=== PATIENT | female | born 1960 | race Caucasian/White ===

== ENCOUNTER 2023-03-04 08:04 | Outpatient (OUT) | payer BC, SELFPAY ==
--- NOTE | 2023-03-04 | XR_ITS ---
The [address] [address] Patient Name: ALICIA RITTER MRN: [id number] date: 1960 Sex: F Assigned Patient Location: [facility] Current Patient Location: [facility] Accession/Order Number: [id number] Exam Date: 03/04/2023 08:25 Report Date: 03/04/2023 09:19 At the request of: KIRSTIN SIM Procedure: XR hand NICA min 3v EXAMINATION: XR hand NICA min 3v HISTORY: hand pain COMPARISON: No relevant comparison available. FINDINGS: RIGHT FINDINGS: BONES: No acute fracture or dislocation. Minimal degenerative changes with marginal osteophyte formation. No significant joint space narrowing. No subchondral erosions or lytic changes SOFT TISSUES: Negative. No visible soft tissue swelling. OTHER: Negative. LEFT FINDINGS: BONES: No acute fracture or dislocation. Minimal degenerative changes with marginal osteophyte formation. No significant joint space narrowing. No subchondral erosions or lytic changes SOFT TISSUES: Negative. No visible soft tissue swelling. OTHER: Negative. XR/XR hand NICA min 3v IMPRESSION: RIGHT CONCLUSION: Minimal proliferative arthritis LEFT CONCLUSION: Minimal proliferative arthritis Electronically authenticated by: REBECCA JEFFRIES Date: 03/04/2023 09:19
[2023-03-04 09:23] LABS: Erythrocyte Sedimentation Rate 14 mm/hr (<=30)
[2023-03-04 10:17] LABS: C Reactive Protein <0.2 mg/dL (<=1.0)
[2023-03-05 07:07] LABS: Vitamin D, 25-Hydroxy 29.8 ng/mL (30.0-100.0)
[2023-03-05 08:08] LABS: Rheumatoid Factor (RF) 10.6 IU/mL (<14.0)
[2023-03-06 12:08] LABS: Anti-CCP Ab, IgG/IgA 42 units (0-19); PTH, Intact 29 pg/mL (15-65)
[2023-03-06 15:07] LABS: Antinuclear Antibodies, IFA Negative (.)
== END 2023-03-04 08:05 | disposition home or self-care (01) ==
PROVIDERS: PCP Internal Medicine; Visit Provider Internal Medicine Rheumatology
DX: M79.642 Pain in left hand (principal); M79.641 Pain in right hand; M25.50 Pain in unspecified joint; M89.9 Disorder of bone, unspecified; M19.042 Primary osteoarthritis, left hand; M19.041 Primary osteoarthritis, right hand
CPT/HCPCS: 36415; 73130; 82306; 83970; 85652; 86038; 86140; 86200; 86430; 86431

== ENCOUNTER 2023-08-17 02:14 | Emergency (ER) | payer BC, SELFPAY ==
[2023-08-17] VITALS (17 sets, daily range): BP systolic 124–187; BP diastolic 70–110; PULSE 90–119; RESP 18; TEMP 36.8; O2SAT 93–98; BMI 34.3
--- NOTE | 2023-08-17 02:41 | ED.GENADUL1 ---
HPI - General Adult General Chief complaint: Headache Stated complaint: BLOOD PRESSURE ISSUE Time Seen by Provider: 08/17/23 02:37 Source: patient Limitations: no limitations History of Present Illness HPI narrative: presents anxious. States started on new BP medication by her PCP. feels that her BP has been creeping up despite taking it. Elisa felt anxious and called 911 because of her elevated BP. States it was over 200 at her home. has come down to 172 here. No chest pain Related Data Home Medications Medication Instructions Recorded Confirmed amlodipine 5 mg tablet mg 08/17/23 losartan 50 mg-hydrochlorothiazide tab 08/17/23 12.5 mg tablet Allergies Allergy/AdvReac Type Severity Reaction Status Date / Time Penicillins Allergy Verified 08/17/23 02:28 Review of Systems ROS Status of ROS 10 or more systems reviewed and unremarkable except as noted in history and below PFSH PFS Social History Smoking status: Never smoker Exam Constitutional Vital Signs, click to edit/add: Last Vital Signs Temp 98.3 F 08/17/23 02:25 Pulse 119 H 08/17/23 02:25 Resp 18 08/17/23 02:25 BP 132/70 08/17/23 03:42 Pulse Ox 98 08/17/23 02:25 O2 Del Method Room Air 08/17/23 02:25 Common normals: no apparent distress, oriented x3, no limitations, healthy appearing, alert and well nourished [facility] Common normals: normocephalic and head/scalp atraumatic Eye Common normals: EOMs intact bilaterally and conjunctivae normal Respiratory Common normals: normal respiratory effort, no retractions, no use of accessory muscles and clear to auscultation bilaterally Cardio Common normals: no JVD, regular rate, regular rhythm, S1 normal heart sound and S2 normal heart sound GI Common normals: Normal to inspection, nondistended, normoactive bowel sounds present, soft to palpation and non-tender Extremity Common normals: normal to inspection and full ROM Neuro Common normals: oriented x3, CN's II-XII intact bilaterally, moves all extremities, no focal motor deficits and no sensory deficits noted Psych Appearance: grossly normal Course Vital Signs Vital signs: Vital Signs Temperature 98.3 F 08/17/23 02:25 Pulse Rate 119 H 08/17/23 02:25 Respiratory Rate 18 08/17/23 02:25 Blood Pressure 187/94 H 08/17/23 02:25 Pulse Oximetry 98 08/17/23 02:25 Oxygen Delivery Method Room Air 08/17/23 02:25 Temperature 98.3 F 08/17/23 02:25 Pulse Rate 119 H 08/17/23 02:25 Respiratory Rate 18 08/17/23 02:25 Blood Pressure 132/70 08/17/23 03:42 Pulse Oximetry 98 08/17/23 02:25 Oxygen Delivery Method Room Air 08/17/23 02:25 Medical Decision Making MDM Narrative Medical decision making narrative: patient presents anxious about her elevated BP. it was higher at home when she called [facility]. States it was over 200 systolic. On arrival here it was 172 systolic. Given Dose of labetalol and her BP and anxiety improved and hse is now resting comfortably and requesting to go home Discharge Plan Discharge Chief Complaint: Headache Clinical Impression: Anxiety, Hypertension Patient Disposition: Home, Self-Care Prescriptions / Home Meds: No Action amlodipine 5 mg tablet losartan-hydrochlorothiazide 50-12.5 mg tablet Instructions: Hypertension (ED), Anxiety (ED) Additional Instructions: follow up with your family doctor for recheck in next 2- days Stand Alone Forms: Portal Instructions Referrals: Parviz Hanley DO [Primary Care Provider] - 1 week
[2023-08-17] MEDS: LABETALOL HCL 20 MG/4 ML SYRINGE IVP (03:02)
--- NOTE | 2023-08-17 03:31 | PC.NURSE ---
Patient with h/o RA and recent dx of HTN is supposed to be having a knee replacement in a few weeks and saw her PCP for medical clearance. At this appt she was dx with htn and started on medication. The medication caused her BP to go up, and she started with sx of feeling poorly including headache, fatigue, palpitations and just general unwell. She called EMS earlier this morning and they sat with her and her BP started to come down some, so she thought maybe her sx were anxiety and decided to bring herself to the ED when she did not feel any better.
== END 2023-08-17 04:45 | disposition home or self-care (01) ==
PROVIDERS: Emergency Provider Internal Medicine; PCP Internal Medicine
DX: I10 Essential (primary) hypertension (principal); F41.9 Anxiety disorder, unspecified; Z79.899 Other long term (current) drug therapy
CPT/HCPCS: 96374; 99284; J1290

== ENCOUNTER 2023-10-19 11:16 | Outpatient (OUT) | payer BC, SELFPAY ==
[2023-10-19 11:45] LABS: Bilirubin Urine NEGATIVE (NEGATIVE); Blood Urine NEGATIVE (NEGATIVE); Clarity Urine CLEAR (CLEAR); Color Urine LT. YELLOW (YELLOW); Glucose Urine UA NEGATIVE (NEGATIVE); Ketones Urine NEGATIVE (NEGATIVE); Leukocyte Esterase Urine TRACE (NEGATIVE); Nitrite Urine NEGATIVE (NEGATIVE); Protein Urine NEGATIVE (NEG/TRACE); Urobilinogen Urine 0.2 EU/dL (0.2-1.0)
== END 2023-10-19 11:17 | disposition home or self-care (01) ==
LOC: LAB 11:18
PROVIDERS: PCP Internal Medicine; Visit Provider Internal Medicine
DX: R30.0 Dysuria (principal)
CPT/HCPCS: 81003; 87086

== ENCOUNTER 2024-01-24 07:43 | Outpatient (OUT) | payer BC, SELFPAY ==
--- OUTSIDE RECORDS SUMMARY | 2024-01-24 07:48 | XMS_ITS | CCD ---
Author Organization [facility] Care Team Providers Care Staple Laster Name Role Phone DR BRITTNEY FARRIS Primary Care Unavailable TALON, DR ZAMUDIO Attending Unavailable BALL, DR ZAMUDIO Consulting Unavailable BALL, DR ZAMUDIO Admitting Unavailable FARRIS, DR BRITTNEY Torres Admitting Unavailable FARRIS, DR BRITTNEY Torres Attending Unavailable FARRIS, DR BRITTNEY Torres Consulting Unavailable FARRIS, DR BRITTNEY Torres Primary Care Unavailable FARRIS, DR BRITTNEY Torres Admitting Unavailable FARRIS, DR BRITTNEY Torres Attending Unavailable WEST, DR REBECCA Hernandez Consulting Unavailable FARRIS, DR BRITTNEY Torres Primary Care Unavailable FARRIS, DR BRITTNEY Torres Consulting Unavailable Parviz Hanley Unavailable Kirstin Dee II Unavailable NON STAFF Primary Care Provider UnavailDO Clay Yeh Attending Provider [phone] MD Kirstin Dee II Attending Provider NON STAFF Primary Care Provider Unavaildewayne torres NON STAFF Primary Care Provider UnavailMD Kirstin Miranda II Attending Provider DO Parviz Hanley Primary Care Provider MD Kirstin Dee II Attending Provider MD Kirstin Dee II Attending Provider [phone] DO Parviz Hanley Primary Care Provider DO Parviz Hanley Primary Care Provider MD Kirstin Dee II Attending Provider AMARILIS YI Attending Unavailable KIRSTIN DEE Referring Unavailable JOJO ALEXANDRA Attending Unavailable KIRSTIN DEE Referring Unavailable CINDY ROLON Attending Unavailable KIRSTIN DEE Referring Unavailable CINDY ROLON Attending Unavailable KIRSTIN DEE Referring Unavailable CINDY ROLON Attending Unavailable KIRSTIN DEE Referring Unavailable CINDY ROLON Attending Unavailable LEILA, KIRSTIN Referring Unavailable GONZALES, CINDY Attending Unavailable LEILA, KIRSTIN Referring Unavailable GONZALES, CINDY Attending Unavailable LEILA, KIRSTIN Referring Unavailable GONZALES, CINDY Attending Unavailable LEILA, KIRSTIN Referring Unavailable GONZALES, CINDY Attending Unavailable LEILA, KIRSTIN Referring Unavailable GONZALES, CINDY Attending Unavailable LEILA, KIRSTIN Referring Unavailable GONZALES, CINDY Attending Unavailable LEILA, KIRSTIN Referring Unavailable GONZALES, CINDY Attending Unavailable LEILA, KIRSTIN Referring Unavailable GONZALES, CINDY Attending Unavailable LEILA, KIRSTIN Referring Unavailable GONZALES, CINDY Attending Unavailable LEILA, KIRSTIN Referring Unavailable Ball, DO Parviz Primary Care Provider MD Kirstin Dee II Attending Provider Leila HUERTA, Kirstin Noel Attending Unavailabl e Garza II, Kirstin Noel Admitting Unavailabl e Ball, Parviz Primary Care Unavailable Garza DEANNA, Kirstin Noel Attending Unavailabl e Garza II, Kirstin Noel Admitting Unavailabl e Ball, Parviz Primary Care Unavailable Leila DEANNA, Kirstin Noel Attending Unavailabl e Garza II, Kirstin Noel Admitting Unavailabl e Ball, Parviz Primary Care Unavailable Garza II, Kirstin Noel Attending Unavailabl e Garza II, Kirstin Noel Admitting Unavailabl e Ball, Parviz Primary Care Unavailable Garza II, Kirstin Noel Attending Unavailabl e Garza II, Kirstin Noel Admitting Unavailabl e Ball, Parviz Primary Care Unavailable Garza II, Kirstin Noel Attending Unavailabl e Garza II, Kirstin M Admitting Unavailabl e Ball, Parviz Primary Care Unavailable Garza II, Kirstin M Admitting Unavailabl e Garza II, Kirstin Noel Attending Unavailabl e NON STAFF Primary Care Unavailable Garza II, Kirstin M Admitting Unavailabl e Leila II, Kirstin M Attending Unavailabl e NON STAFF Primary Care Unavailable NON STAFF Primary Care Unavailable Clay Traore Admitting Unavailable Clay Traore Attending Unavailable Leila DEANNA, Kirstin Noel Attending Unavailabl e Garza II, Kirstin Noel Admitting Unavailabl e Ball, Praviz Primary Care Unavailable Leila DEANNA, Kirstin Noel Attending Unavailabl e Garza II, Kirstin M Admitting Unavailabl e Ball, Parviz Primary Care Unavailable Ball, DO Parviz Primary Care Provider [phone] MD Kirstin Dee II Attending Provider Allergies Allergy Classification Reported Allergen(s) Allergy Type Date of Onset Reaction(s) Facility amLODIPine (2 sources) amLODIPine Drug Allergy 11-22-19 24 Palpitations [facility] Penicillins (antibiotic) (2 sources) Penicillins Drug Allergy 11-22-19 24 Unknown Reaction [facility] (2 sources) Penicillin G Drug Allergy Unknown [facility] Other (8 sources) Substance with penicillin structure and antibacterial mechanism of action (substance) Drug allergy Unknown [facility] Other (12 sources) amLODIPine; Translations: [amlodipine] Drug Allergy 09-27-19 24 Palpitations [facility] (12 sources) Penicillins; Translations: [Penicillins] Allergy to substance 09-27-19 Unknown Reaction [facility] Medications Current Medications Medication Drug Class(es) Dates Sig (Normalized) Sig (Original) acetaminophen 500 mg oral tablet (20 sources) Start: 08-24-2023 End: 09-27-2023 take 1000 mg by mouth every eight hours Acetaminophen Active 1000 MG PO Q8H 180 September 27, 2023 8:52am DO NOT RECONCILE UNTIL DOS 10/09/2023. MED TO BED UPON DISCHARGE. Acetaminophen 50 0 MG 1 tablet as needed Orally PRN Active celecoxib 100 mg oral capsule (8 sources) Nonsteroidal Anti-inflammatory Drug Start: 11-22-2023 take 100 mg by mouth twice daily at mealtime Celecoxib Active 100 MG PO bid 60 November 22, 2023 12:00am Take with food. Start: 05-11-2023 take 1 capsule by [facility] twice daily for arthritis Celecoxib 100 MG 1 capsule for arthritis Orally twice a day for 30 days Apr, Active Cholecalciferol (5 sources) Vitamin D Start: 07-31-2023 take 1 capsule by mouth once daily Cholecalciferol 125 MCG (5000 UT) 1 capsule Orally Once a day for 30 day(s) Jul, Active clindamycin 300 mg oral capsule (10 sources) Lincosamide Antibacterial take 1 capsule by mouth every eight hours Diclofenac (6 sources) Nonsteroidal Anti-inflammatory Drug Voltaren 1 % as directed Externally Active estradiol 0.5 mg oral tablet (10 sources) Estrogen take 1 tablet by anali th every twenty-four hours fluticasone propionate 0.05 mg/actuat metered dose nasal spray (10 sources) Corticosteroid take 1 spray(s) nasa l route once daily take 1 spray(s) nasal route once daily Fluticasone Propionate 50 MCG/ACT 1 spray in each nostril Nasally Once a day Not-Taking hydroCHLOROthiazide 25 mg / losartan potassium 100 mg oral tablet (20 sources) Thiazide Diuretic, Angiotensin 2 Receptor Elliot Start: 08-30-2023 End: 09-06-2023 take 1 tablet by mouth once daily Losartan-Hydrochlorothiazide Active 1 TAB PO Daily August 30, 2023 1:00am Start: 08-17-2023 End: 08-29-2023 take 2 tablets by mouth once daily Losartan-Hydrochlorothiazide Discontinue d 2 TAB PO Daily August 28, 2023 6:11pm August 29, 2023 5:46pm Start: 08-04-2023 take 1 tablet by anali th every twenty-four hours Losartan Potassium-HCTZ 50-12.5 MG 1 tab let Orally Once a day for 30 days Jul, Active hydroxychloroquine sulfate 2 00 mg oral tablet (6 sources) Antimalarial, Antirheumatic Agent ibuprofen 400 mg oral tablet (9 sources) Nonsteroidal Anti-inflammatory Drug take 1 tablet by mouth three times daily at mealtime as needed Magnesium (9 sources) Magnesium Active Ozempic (0.25 or 0.5 MG/DOSE ) 2 MG/1.5ML (6 sources) Start: 09-05-2022 Start: 09-05-2022 Ozempic (0.25 or 0.5 MG/DOSE) 2 MG/1.5ML 0.25mg Subcutaneous weekly for 28 days Aug, Not-Taking tiZANidine 4 mg oral tablet (8 sources) Central alpha-2 Adrenergic Agonist Start: 10-25-2023 take 1 tablet by mouth twice daily Tizanidine (Zanaflex) 4 mg tablet Active 4 MG PO Twice daily October 25, 2023 12:00am 24 hr tolterodine tartrate 4 mg extended release oral capsule (12 sources) Cholinergic Muscarinic Antagonist Start: 01-31-2023 take 1 capsule by mouth every twenty-four hours Detrol LA 4 MG 1 capsule Orally Once a day for 30 days Jan, Active vitamin B12 (9 sources) Vitamin B12 Vitamin B12 Acti ve Zinc (9 sources) Zinc Active Completed/Discontinued Medications Medication Drug Class(es) Dates Sig (Normalized) Sig (Original) amLODIPine 5 mg oral tablet (19 sources) Dihydropyridine Calcium Channel Elliot Start: 08-17-2023 End: 08-17-2023 take 5 mg by mouth twice daily Amlodipine Discontinued 5 MG PO Twice daily 60 August 17, 2023 1:00am August 17, 2023 4:53pm Start: 08-02-2023 take 1 tablet by anali th every twenty-four hours amLODIPine Besylate 5 MG 1 tablet Orally Once a day for 30 days Jul, Active carvedilol 12.5 mg oral tablet (20 sources) alpha-Adrenergic Elliot, beta-Adrenergic Elliot Start: 08-28-2023 End: 11-22-2023 take 1 tablet by mouth twice daily at mealtime Carvedilol Discontinued 0 .ROUTE .COMPLEX 60 August 28, 2023 2:09pm November 22, 2023 12:02pm TAKE 1 TABLET BY MOUTH TWICE A DAY *MUST TAKE WITH A MEAL/FOOD* Start: 08-17-2023 End: 08-28-2023 take 12.5 mg by mouth twice daily at mealtime Carvedilol Discontinued 12.5 MG PO Twice daily 60 August 17, 2023 1:00am August 28, 2023 2:09pm must administer with a meal/food cefadroxil 500 mg oral capsule (20 sources) Cephalosporin Antibacterial Start: 09-27-2023 End: 09-27-2023 take 500 mg by mouth every twelve hours Cefadroxil Discontinued 500 MG PO Q12H 14 September 27, 2023 12:00am September 27, 2023 10:15am DO NOT RECONCILE UNTIL DOS 10/09/2023. MED TO BED UPON DISCHARGE. Start: 08-24-2023 End: 08-24-2023 take 500 mg by mouth every twelve hours Cefadroxil Discontinued 500 MG PO Q12H 14 August 24, 2023 1:00am August 24, 2023 2:39pm DO NOT RECONCILE UNTIL DOS 09/04/2023. MED TO BED UPON DISCHARGE. docusate sodium 50 mg / sennosides, group home 8.6 mg oral tablet (20 sources) Start: 08-24-2023 End: 11-22-2023 take 2 tablets by mouth once daily Sennosides-Docusate Sodium (Senokot-S) 8.6-50 mg tablet Discontinued 2 TAB PO daily 60 September 27, 2023 8:55am November 22, 2023 12:02pm DO NOT RECONCILE UNTIL DOS 10/09/2023. MED TO BED UPON DISCHARGE. hydroCHLOROthiazide 12.5 mg / telmisartan 40 mg oral tablet (13 sources) Thiazide Diuretic, Angiotensin 2 Receptor Elliot Start: 08-29-2023 End: 08-30-2023 take 1 tablet by mouth twice daily Telmisartan-Hydrochlor othiazid Discontinued 1 TAB PO Twice daily 60 August 29, 2023 5:44pm August 30, 2023 10:59pm hydrocortisone 10 mg/ml / neomycin 3.5 mg/ml / polymyxin b 33311 unt/ml otic suspension (11 sources) Aminoglycoside Antibacterial, Polymyxin-class Antibacterial, Corticosteroid Start: 09-29-2023 End: 10-09-2023 Yukuqyee-Ezqnaolsc-Nb Discontinued 4 DROPS OTIC Four times daily 10 September 29, 2023 12:00am October 09, 2023 9:20am meloxicam 15 mg oral tablet (4 sources) Nonsteroidal Anti-inflammatory Drug Meloxicam 15 MG TAKE 1 TABLET BY MOUTH EVERY DAY FOR 30 DAYS for 30 Not-Taking methylPREDNISolone 4 mg oral tablet (15 sources) Corticosteroid Start: 11-22-2023 End: 12-13-2023 Methylprednisolone (Medrol (Art)) 4 mg tablets,dose pack Discontinued 4 MG PO as directed November 22, 2023 12:00am December 13, 2023 1:57pm Start: 10-25-2023 End: 11-22-2023 take 1 tablet by mouth once Methylprednisolone (Medrol (Art)) 4 mg tablets,dose pack Discontinued 0 PO per package directions October 25, 2023 12:00am November 22, 2023 12:02pm PO PER PKG DIR ondansetron 4 mg oral tablet (20 sources) Serotonin-3 Receptor Antagonist Start: 08-24-2023 End: 11-22-2023 take 4 mg by mouth every eight hours Ondansetron Hcl Discontinued 4 MG PO Q8H September 27, 2023 8:52am November 22, 2023 12:02pm DO NOT RECONCILE UNTIL DOS 10/09/2023. MED TO BED UPON DISCHARGE. oxyCODONE hydrochloride 5 mg oral tablet (20 sources) Opioid Agonist Start: 08-24-2023 End: 11-22-2023 take 5 mg by mouth every four hours Oxycodone Discontinued 5 MG PO Q4H 42 September 27, 2023 November 22, 2023 12:02pm DO NOT RECONCILE UNTIL DOS 10/09/2023. MED TO BED UPON DISCHARGE. pantoprazole 20 mg delayed release oral tablet (20 sources) Proton Pump Inhibitor Start: 08-24-2023 End: 11-22-2023 take 1 tablet by mouth once daily Pantoprazole (Protonix) 20 mg tablet,delayed release (DR/EC) Discontinued 20 MG PO daily 35 35 September 27, 2023 8:53am November 22, 2023 12:02pm DO NOT RECONCILE UNTIL DOS 10/09/2023. MED TO BED UPON DISCHARGE. polyethylene glycol 3350 18679 mg powder for oral solution (20 sources) Osmotic Laxative Start: 08-24-2023 End: 11-22-2023 Polyethylene Glycol 3350 (Miralax) 17 gram/dose powder Discontinued 17 GM PO daily 7 September 27, 2023 8:53am November 22, 2023 12:02pm 1 packed mixed with 8 ounces of fluid. DO NOT RECONCILE UNTIL DOS 10/09/2023. MED TO BED UPON DISCHARGE. predniSONE 10 mg oral tablet (20 sources) Start: 09-27-2023 End: 11-22-2023 take 10 mg by mouth once daily Prednisone Discontinued 10 MG PO daily 10 September 27, 2023 12:00am November 22, 2023 12:02pm DO NOT RECONCILE UNTIL DOS 10/09/2023. MED TO BED UPON DISCHARGE. Start: 08-24-2023 End: 09-06-2023 take 10 mg by mouth once daily Prednisone Discontinued 10 MG PO daily 04 04August 24, 2023 1:00am September 06, 2023 12:41pm DO NOT RECONCILE UNTIL DOS 09/04/2023. MED TO BED UPON DISCHARGE. rivaroxaban 10 mg oral tablet (20 sources) Factor Xa Inhibitor Start: 08-24-2023 End: 11-22-2023 take 10 mg by mouth once daily Rivaroxaban Discontinued 10 MG PO daily 35 35 September 27, 2023 8:54am November 22, 2023 12:02pm DO NOT RECONCILE UNTIL DOS 10/09/2023. MED TO BED UPON DISCHARGE. 0.25 mg, 0.5 mg dose 1.5 ml semaglutide 1.34 mg/ml pen injector (4 sources) Start: 09-05-2022 Ozempic (0.25 or 0.5 MG/DOSE) 2 MG/1.5ML 0.25mg Subcutaneous weekly for 28 days Aug, Not-Taking sulfamethoxazole 800 mg / trimethoprim 160 mg oral tablet (20 sources) Dihydrofolate Reductase Inhibitor Antibacterial, Sulfonamide Antimicrobial Start: 10-20-2023 End: 11-22-2023 take 1 tablet by mouth twice daily Sulfamethoxazole- Trimethoprim Discontinued 1 TAB PO Twice daily 10 5 October 20, 2023 12:00am November 22, 2023 12:02pm Start: 08-24-2023 End: 09-06-2023 take 1 tablet by mouth twice daily Sulfamethoxazole-Trimethoprim Discontinu ed 1 TAB PO Twice daily 14 7 August 24, 2023 1:00am September 06, 2023 12:41pm DO NOT RECONCILE UNTIL 09/04/2023. MED TO BED traMADol hydrochloride 50 mg oral tablet (20 sources) Opioid Agonist Start: 10-25-2023 End: 11-22-2023 take 50 mg by mouth every eight hours Tramadol Discontinued 50 MG PO Every 8 hours 30 7 October 25, 2023 12:00am November 22, 2023 12:03pm Start: 08-24-2023 End: 11-22-2023 take 50 mg by mouth every six hours Tramadol Discontinued 50 MG PO Q6H 40 September 27, 2023 8:54am November 22, 2023 12:03pm DO NOT RECONCILE UNTIL DOS 10/09/2023. MED TO BED UPON DISCHARGE. triamcinolone acetonide 40 mg/ml injectable suspension (15 sources) Corticosteroid Start: 12-29-2022 Kenalog-40 Apr, 120 mg valACYclovir 1000 mg oral tablet (11 sources) Herpesvirus Nucleoside Analog DNA Polymerase Inhibitor, Herpes Simplex Virus Nucleoside Analog DNA Polymerase Inhibitor, Herpes Zoster Virus Nucleoside Analog DNA Polymerase Inhibitor Start: 09-29-2023 End: 10-09-2023 take 2000 mg by mouth twice daily Valacyclovir Discontinued 2000 MG PO Twice daily 4 September 29, 2023 12:00am October 09, 2023 9:20am Problems Active Problems Problem Classification Problem Date Documented Date Episodic/Chronic Allergic reactions (10 sources) Allergic contact dermatitis due to plants, except food; Translations: [Allergic contact dermatitis due to plants, except food] Episodic Anxiety disorders (20 sources) Generalized anxiety disorder; Translations: [Generalized anxiety disorder] 08-17-2023 Chronic Essential hypertension (20 sources) Essential hypertension; Translations: [Essential (primary) hypertension] Chronic Genitourinary symptoms and ill-defined conditions (18 sources) Urgent desire to urinate; Translations: [Urgency of urination] Onset: 12-26-2016 Resolved: 11-12-2021 Episodic Malaise and fatigue (10 sources) Other fatigue; Translations: [Fatigue] Onset: 11-05-2021 Resolved: 11-12-2021 01-23-2024 Episodic Osteoarthritis (20 sources) Osteoarthritis of joint of left hand; Translations: [Primary osteoarthritis, left hand] Onset: 10-10-2016 Resolved: 11-12-2021 Chronic Osteoporosis (1 source) Age-related osteoporosis without current pathological fracture; Translations: [Age-related osteoporosis without current pathological fracture] Onset: 07-27-2023 Chronic Other aftercare (7 sources) Patient encounter status; Translations: [Aftercare following joint replacement surgery] 11-21-2023 Chronic Other aftercare (15 sources) Aftercare following joint replacement surgery; Translations: [Aftercare following joint replacement] Onset: 01-04-2024 11-22-2023 Chronic Other circulatory disease (18 sources) Elevated blood-pressure reading without diagnosis of hypertension; Translations: [Elevated blood-pressure reading, without diagnosis of hypertension] Episodic Other connective tissue disease (8 sources) History of prosthetic unicompartmental arthroplasty of right knee; Translations: [Presence of right artificial knee joint] 10-25-2023 Chronic Other connective tissue disease (19 sources) Presence of right artificial knee joint; Translations: [Knee joint replacement] Onset: 01-04-2024 10-25-2023 Chronic Other connective tissue disease (6 sources) History of total knee arthroplasty; Translations: [Presence of right artificial knee joint] 11-21-2023 Chronic Other connective tissue disease (1 source) Cramp and spasm Episodic Other connective tissue disease (13 sources) Trochanteric bursitis; Translations: [Trochanteric bursitis, unspecified hip] 10-25-2023 Episodic Other connective tissue disease (7 sources) Trochanteric bursitis, unspecified hip; Translations: [Enthesopathy of hip region] 10-25-2023 Episodic Other connective tissue disease (3 sources) Trochanteric bursitis, left hip; Translations: [Enthesopathy of hip region] 01-04-2024 Episodic Other connective tissue disease (3 sources) Trochanteric bursitis, right hip; Translations: [Enthesopathy of hip region] 01-04-2024 Episodic Other diseases of bladder and urethra (8 sources) Overactive bladder; Translations: [Overactive bladder] Chronic Other diseases of bladder and urethra (1 source) Overactive bladder Chronic Other ear and sense organ disorders (9 sources) Otitis externa; Translations: [Unspecified otitis externa, unspecified ear] 09-29-2023 Chronic Other ear and sense organ disorders (7 sources) Unspecified otitis externa, unspecified ear; Translations: [Infective otitis externa, unspecified] 09-29-2023 Chronic Other inflammatory condition of skin (8 sources) Rosacea; Translations: [Rosacea, unspecified] Chronic Other nutritional; endocrine; and metabolic disorders (17 sources) Body mass index 30+ - obesity; Translations: [Obesity, unspecified] 08-17-2023 Chronic Other nutritional; endocrine; and metabolic disorders (18 sources) Obese class II; Translations: [Body mass index (BMI) 37.0-37.9, adult] Chronic Other nutritional; endocrine; and metabolic disorders (8 sources) Morbid obesity; Translations: [Morbid (severe) obesity due to excess calories] Onset: 08-10-2016 Chronic Other nutritional; endocrine; and metabolic disorders (20 sources) Obesity; Translations: [Obesity, unspecified] Resolved: 11-12-2021 09-06-2023 Chronic Other nutritional; endocrine; and metabolic disorders (5 sources) Obesity caused by energy imbalance; Translations: [Other obesity due to excess calories] Chronic Other nutritional; endocrine; and metabolic disorders (1 source) Other obesity due to excess calories Chronic Other nutritional; endocrine; and metabolic disorders (1 source) Body mass index (BMI) 34.0-34.9, adult Chronic Other nutritional; endocrine; and metabolic disorders (10 sources) Obesity, unspecified; Translations: [Obesity, unspecified] 09-06-2023 Chronic Other upper respiratory infections (20 sources) Acute maxillary sinusitis; Translations: [Acute maxillary sinusitis, unspecified] Episodic Residual codes; unclassified (10 sources) Asymptomatic menopausal state; Translations: [Menopause] Episodic Residual codes; unclassified (8 sources) Postmenopausal state; Translations: [Asymptomatic menopausal state] Episodic Rheumatoid arthritis and related disease (10 sources) Inflammatory polyarthropathy; Translations: [Inflammatory polyarthropathy] Chronic Spondylosis; intervertebral disc disorders; other back problems (9 sources) Lumbar spondylosis; Translations: [Spondylosis without myelopathy or radiculopathy, lumbar region] Chronic Spondylosis; intervertebral disc disorders; other back problems (8 sources) Sciatica; Translations: [Sciatica, unspecified side] 10-25-2023 Episodic Unclassified (1 source) Unilateral primary osteoarthritis, right knee; Translations: [Unilateral primary osteoarthritis, right knee] Onset: 08-24-2023 Unclassified (1 source) Encounter for preprocedural laboratory examination; Translations: [Encounter for preprocedural laboratory examination] Onset: 08-24-2023 Unclassified (1 source) Low back pain, unspecified; Translations: [Low back pain, unspecified] Onset: 05-11-2023 Viral infection (20 sources) Herpes labialis; Translations: [Herpesviral vesicular dermatitis] Onset: 05-13-2015 Resolved: 11-12-2021 09-29-2023 Episodic Past or Other Problems Problem Classification Problem Date Documented Date Episodic/Chronic Deficiency and other anemia (8 sources) Anemia; Translations: [Anemia, unspecified] Onset: 05-13-2015 Resolved: 11-12-2021 Episodic Nutritional deficiencies (8 sources) Vitamin D deficiency; Translations: [Vitamin D deficiency, unspecified] Onset: 05-13-2015 Resolved: 11-12-2021 Chronic Other aftercare (1 source) Other bed bug exterminator (current) drug therapy; Translations: [Other correction (current) drug therapy] Onset: 07-27-2023 Episodic Other ear and sense organ disorders (8 sources) Infective otitis externa; Translations: [Other infective otitis externa, bilateral] Onset: 09-08-2016 Episodic Other non-traumatic joint disorders (4 sources) Pain in right knee; Translations: [Pain in right knee] Onset: 08-24-2023 Episodic Other non-traumatic joint disorders (8 sources) Arthralgia of the lower leg; Translations: [Pain in right knee] Resolved: 11-12-2021 Episodic Other screening for suspected conditions (not mental disorders or infectious disease) (4 sources) Encounter for screening mammogram for malignant neoplasm of breast; Translations: [ENC SCR MAMMO MALIG NEOPLASM BREAST] Onset: 11-30-2021 Episodic Other upper respiratory disease (8 sources) Ulcerative rhinitis; Translations: [Nasal mucositis (ulcerative)] Onset: 05-13-2015 Resolved: 11-12-2021 Chronic Otitis media and related conditions (8 sources) Non-suppurative otitis media; Translations: [Unspecified nonsuppurative otitis media, right ear] Resolved: 11-12-2021 Episodic Unclassified (2 sources) Lumbar back pain M54.50 Results Test Name Value Interpretation Reference Range Facility XR tibia fibula RT 2V*on XR tibia fibula RT 2V* [facility] [address] [place] [address] XRay Report Signed Patient: Maddison Ritter MR#: [id number] 98 : 1960 Acct:[id number] Age/Sex: 63 / F ADM Date: 01/04/24 Loc: [facility] [place]: Type: [facility] Attending Dr: Kirstin Dee II, MD Copies to: Kirstin Dee MD Ordering Provider: Kirstin Dee MD Date of Service: 01/04/24 XR/XR tibia fibula RT 2V*: Z47.1 - Aftercare following joint replacement surgery ([id number]) XR/XR femur RT 2V*: Z47.1 - Aftercare following joint replacement surgery ([id number]) XR/XR knee RT 2V: Z47.1 - Aftercare following joint replacement surgery CLINICAL DATA: Follow-up after right knee hemiarthroplasty. COMPARISON: 08/24/2023 and 11/22/2023 knee RIGHT FEMUR AND TIB-FIB - one view AP standing view of both lower extremities from above the acetabula down to the ankles was obtained using a long cassette. There is a right medial knee prosthesis. The hardware appears intact and in appropriate position. There is no new femur fracture. There is no dislocation at the hips or knees. No soft tissue abnormalities are identified. The tibia and fibula are intact. No dislocation is visualized at the ankles. The soft tissues are within normal limits. XR/XR femur RT 2V* IMPRESSION: STABLE APPEARANCE OF MEDIAL RIGHT KNEE REPLACEMENT. RIGHT KNEE - 2 views AP and lateral weightbearing views were obtained. A medial right knee prosthesis is again visualized. The hardware appears intact and unchanged from the comparison. There is no developing fracture or dislocation. There is minor marginal spurring at the lateral tibiofemoral and patellofemoral joint spaces. There is still a small amount of fluid within the suprapatellar bursa. IMPRESSION: STABLE RIGHT KNEE REPLACEMENT AND MILD DEGENERATIVE CHANGES. Impression dictated by: Lainey Scott M.D.01/04/2024 4:42 PM Dictation Location: [place] [address] Transcribed By: [facility] 01/04/24 1642 Dictated By: Lainey Scott MD 01/04/24 1639 Signed By: 01/04/24 1642 Normal [facility] XR knee RT 3V - NOT FOR ER U [facility] 11-22-2023 XR knee RT 3V - NOT FOR ER USE [facility] [address] [place] [address] XRay Report Signed Patient: Maddison Ritter MR#: [id number] 98 : 1960 Acct:[id number] Age/Sex: 63 / F ADM Date: 11/22/23 Loc: [facility] [place] Room: Type: [facility] Attending Dr: Kirstin Dee II, MD Copies to: Kirstin Dee MD Ordering Provider: Kirstin Dee MD Date of Service: 11/22/23 XR/XR knee RT 3V - NOT FOR ER USE: [id number] - Presence of right artificial knee joint RIGHT KNEE - 3 views CLINICAL HISTORY: Follow-up partial knee arthroplasty. COMPARISON: Right knee 10/09/2023 FINDINGS: Medial compartment prosthesis without radiographic complication. No acute bony process. Mild degenerative changes with joint spurring. Small joint effusion. XR/XR knee RT 3V - NOT FOR ER USE IMPRESSION: NO EVIDENCE OF HARDWARE COMPLICATION. Impression dictated by: Brendon Hauser Jr., D.O.11/22/2023 4:05 PM Dictation Location: [place] [address] Transcribed By: [facility] 11/22/23 1605 Dictated By: Brendon Hausre Jr, DO 11/22/23 1604 Signed By: 11/22/23 1605 Normal [facility] Automated urine specific gra vity by refractometryon 10-19-2023 Specific gravity Refractometry automated (U) [Rel density] 1.010 1.005-1.02 5 [facility] Bilirubin Auto test strip (U ) [Mass/Vol]on 10-19-2023 Bilirubin (U) [Mass/Vol] Negative NEGATIVE [facility] Color Auto (U)on 10-19-2023 Color (U) LT. YELLOW YELLOW [facility] Ketones Auto test strip (U) [Mass/Vol]on 10-19-2023 Ketones (U) [Mass/Vol] Negative NEGATIVE [facility] Protein Auto test strip (U) [Mass/Vol]on 10-19-2023 Protein (U) [Mass/Vol] Negative NEG/TRACE [facility] Specific gravity Auto test s trip (U) [Rel density]on 10-19-2023 Specific gravity (U) [Rel density] CLEAR CLEAR [facility] Urine glucose measurement by test strip (mass/volume)on 10-19-2023 Glucose Test strip (U) [Mass/Vol] Negative NEGATIVE [facility] Urine hemoglobin detection b y automated test stripon 10-19-2023 Hemoglobin Auto test strip Ql (U) Negative NEGATIVE [facility] Urine nitrite detection by a utomated test stripon 10-19-2023 Nitrite Auto test strip Ql (U) TRACE Abnormal NEGATIVE [facility] Nitrite Auto test strip Ql (U) Negative NEGATIVE [facility] Urobilinogen Auto test strip (U) [Mass/Vol]on 10-19-2023 Urobilinogen Qn (U) 0.2 {Sarah'U}/dL 0.2-1.0 [facility] pH Auto test strip (U)on pH (U) 7.0 [pH] 5.0-9.0 [facility] Kaleb 10-09-2023 L Specimen: Received: 10/09/23 Status: AARON Anderson Num: [id number] Spec Type: Surgical Subm Dr: Kirstin Dee MD Tissues: A Joint/Knee (RT KNEE) Procedures: HE, Gross/Micro L4, Decalcification Age/ Patient Sex Location Account Attending Physician Maddison Ritter 63/F [place] [id number] Kirstin Dee MD SPEC NUM: [id number] RECD: 10/09/23 STATUS: AARON JARQUINRianna NUM: [id number] ERROL: 10/09/[address]: Kirstin Dee MD ENTERED: 10/09/[address] [facility] [address]: SPEC TYPE: Surgical DEPT: S ORDERED: HE, Gross/Micro L4, Decalcification ORDERED: HE, Gross/Micro L4, Decalcification Pathological Diagnosis Bone and tissue, right knee, arthroplasty: Degenerative changes consistent with osteoarthritis. Gross examination only. Gross Description In formalin labeled right knee are multiple pieces of erickson-white and brown bone tissue and kern-white rubbery cartilaginous tissue ranging in size from 1.0 x 0.7 x 0.3 cm to 5.2 x 2.4 x 1.2 cm. The resection margins are smooth. The articular surface is erickson-white, brown, and smooth with eburnated cartilage ranging in size from 0.1 cm to 0.2 cm thick. Serial blocks demonstrate spongy kern-yellow and brown cortical bone. Gross photographs are taken. Submitted for gross identification only. RG Clinical history: DJD Right knee CPT Codes 73348 KNEE Specimen: Received: 10/09/23 Status: AARON Anderson Num: [id number] Spec Type: Surgical Subm Dr: Kirstin Dee MD Tissues: A Joint/Knee (RT KNEE) Procedures: HE, Gross/Micro L4, Decalcification Patient: Maddison Ritter [id number] (Continued) Specimen: Received: 10/09/23 (Continued) Signed (signature on file) Josephine Russell MD 10/11/231247 Specimen: Received: 10/09/23 Status: AARON Anderson Num: [id number] Spec Type: Surgical Subm Dr: Kirstin Dee MD Tissues: A Joint/Knee (RT KNEE) Procedures: Slava GONZALES/Micro L4, Decalcification Patient: Maddison Ritter [id number] (Continued) Specimen: [id number] Received: 10/09/23 (Continued) KNEE Specimen: [id number] Received: 10/09/23 Status: AARON Anderson Num: [id number] Spec Type: Surgical Subm Dr: Kirstin Dee MD Tissues: A Joint/Knee (RT KNEE) Procedures: Slava GONZALES/Micro L4, Decalcification Patient: Maddison Ritter [id number] (Continued) Signed (signature on file) Josephine Russell MD 10/11/23 1248 Normal [facility] XR knee RT 2Von 10-09-2023 XR knee RT 2V [facility] [place] [address] XRay Report Signed Patient: Maddison Ritter MR#: [id number] 98 : 1960 Acct:[id number] Age/Sex: 63 / F ADM Date: 10/09/23 Loc: [place] Room: Type: [facility] Attending Dr: Kirstin Dee II, MD Copies to: Kirstin Dee MD Ordering Provider: Kirstin Dee MD Date of Service: 10/09/23 XR/XR knee RT 2V: POST OP XR knee RT 2V 10/09/2023 12:40 PM SIGNS AND SYMPTOMS: Postop right knee arthroplasty PROTOCOL: Frontal and lateral radiographs of the right knee COMPARISON: 12/29/2022 FINDINGS: There is arthroplasty hardware in the medial weightbearing joint space of the right knee. There is no hardware complication or malalignment. Postoperative subcutaneous emphysema is noted. Degenerative changes are noted in the patellofemoral joint space. XR/XR knee RT 2V IMPRESSION: No fracture or dislocation. There is arthroplasty hardware in the medial weightbearing joint space is new. No hardware complication or malalignment. Impression dictated by: Juancarlos Elmore M.D.10/09/2023 4:19 PM Dictation Location: [place] [address] Transcribed By: [facility] 10/09/23 1619 Dictated By: Juancarlos Elmore II, MD 10/09/23 161 Signed By: 10/09/23 1619 Normal [facility] Automated basophil %Ordered By: Kirstin Dee on 09-27-2023 Basophils/100 WBC (Bld) 0.7 % Normal . [facility] Comment on above: Performed By: #### V [id number], CUMRSA, ALB, HGB, A1C WTH eA #### [address] #### N[place]OT[place] #### [facility] , Automated basophil countOrde red By: Kirstin Dee on 09-27-2023 Basophils (Bld) [#/Vol] 0.1 10*3/uL Normal 0.0-0.2 [facility] Comment on above: Result Comment: PERF ORMED BY: [place] [address] PATHOLOGIST RESERVE OFFICER ULYSSES BAIN M.D. Performed By: #### V [id number], CUMRSA, ALB, HGB, A1C WTH eA #### [facility] [address] [place] [address] [place] #### [place] #### [facility] , Automated blood monocyte cou ntOrdered By: Kirstin Dee on 09-27-2023 Monocytes (Bld) [#/Vol] 0.7 10*3/uL Normal 0.0-0.8 [facility] Comment on above: Performed By: #### V [id number], CUMRSA, ALB, HGB, A1C WTH eA #### [place] [address] [place] #### NICOTINE #### [facility] , Automated eosinophil %Ordere d By: Kirstin Dee on 09-27-2023 Eosinophils/100 WBC (Bld) 1.7 % Normal . [facility] Comment on above: Performed By: #### V [id number], CUMRSA, ALB, HGB, A1C WTH eA #### [facility] [address] [place] [address] [place] #### [place]OT[place] #### [facility] , Automated eosinophil countOr dered By: Kirstin Dee on 09-27-2023 Eosinophils (Bld) [#/Vol] 0.1 10*3/uL Normal 0.0-0.45 [facility] Comment on above: Performed By: #### V [id number], CUMRSA, ALB, HGB, A1C WTH eA #### [facility] [address] [place] [address] [place] #### [place] #### [facility] , Automated monocyte %Ordered By: Kirstin Dee on 09-27-2023 Monocytes/100 WBC (Bld) 8.1 % Normal . [facility] Comment on above: Performed By: #### V [id number], CUMRSA, ALB, HGB, A1C WTH eA #### [facility] [address] [place] [address] [place] #### [place]OT[place] #### [facility] , Automated neutrophil %Ordere d By: Kirstin Dee on 09-27-2023 Neutrophils/100 WBC (Bld) 63.5 % Normal . [facility] Comment on above: Performed By: #### V [id number], CUMRSA, ALB, HGB, A1C WTH eA #### [facility] [address] [place] [address] [place] #### [place] #### [facility] , Automated urine color determ inationOrdered By: Kirstin Dee on 09-27-2023 Color (U) Yellow Normal Yellow [facility] Comment on above: Order Comment: Reaso n for Exam Primary osteoarthritis of right knee;Age-related osteoporosi Performed By: #### V [id number], CUMRSA, ALB, HGB, A1C WTH eA #### [place] [address] [place] #### N[place]OT[place] #### [facility] , Basic Metabolic Panelon GFR/1.73 sq M.predicted MDRD (S/P/Bld) [Vol rate/Area] mL/min/{1.73_m2} Normal [facility] Comment on above: Performed By: #### V [id number], CUMRSA, ALB, HGB, A1C WTH eA #### [place] [address] [place] #### N[place]OTINE #### [facility] , Bilirubin Test strip Ql (U)O rdered By: Kirstin Dee on 09-27-2023 Bilirubin Ql (U) Negative Negative [facility] Calcium [Mass/volume] in Ser um or PlasmaOrdered By: Kirstin Dee on 09-27-2023 Calcium [Mass/Vol] 9.1 mg/dL Normal 8.6-10.3 [facility] Comment on above: Result Comment: PERF ORMED BY: [place] [address] PATHOLOGIST RESERVE OFFICER ULYSSES BAIN M.D. Performed By: #### V [id number], CUMRSA, ALB, HGB, A1C WTH eA #### [place] [address] [place] #### [place]OT[place] #### [facility] , Carbon dioxide, total [Moles /volume] in Serum or PlasmaOrdered By: Kirstin Dee on 09-27-2023 CO2 [Moles/Vol] 27.2 mmol/L Normal 21.0-31.0 [facility] Comment on above: Performed By: #### V [id number], CUMRSA, ALB, HGB, A1C WTH eA #### [place] [address] [place] #### N[place]OT[place] #### [facility] , Chloride [Moles/volume] in S torsten or PlasmaOrdered By: Kirstin Dee on 09-27-2023 Chloride [Moles/Vol] 101 mmol/L Normal 98-107 [facility] Comment on above: Performed By: #### V [id number], CUMRSA, ALB, HGB, A1C WTH eA #### [facility] [address] [place] [address] [place] #### [place] #### [facility] , Complete Blood Count Auto Di ffon 09-27-2023 Mean Corpuscular HGB Conc 33.8 g/dL Normal 32.0-35.0 [facility] Comment on above: Performed By: #### V [id number], CUMRSA, ALB, HGB, A1C WTH eA #### [place] [address] [place] #### N[place]OT[place] #### [facility] , NRBC% 0.1 /100{WBC} Normal 0-0.5 [facility] Comment on above: Performed By: #### V [id number], CUMRSA, ALB, HGB, A1C WTH eA #### [facility] [address] [place] [address] [place] #### [place] #### [facility] , Creatinine [Mass/volume] in Serum or PlasmaOrdered By: Kirstin Dee on 09-27-2023 Creatinine [Mass/Vol] 0.58 mg/dL Low 0.60-1.20 [facility] Comment on above: Performed By: #### V [id number], CUMRSA, ALB, HGB, A1C WTH eA #### [facility] [address] [place] [address] [place] #### [place] #### [facility] , Erythrocyte distribution wid th [Ratio] by Automated countOrdered By: Kirstin Dee on 09-27-2023 Erythrocyte distribution width (RBC) [Ratio] 14.3 % Normal 11.9-15.3 [facility] Comment on above: Performed By: #### V [id number], CUMRSA, ALB, HGB, A1C WTH eA #### [facility] [address] [place] [address] [place] #### [place] #### [facility] , Erythrocytes [#/volume] in B lood by Automated countOrdered By: Kirstin Dee on 09-27-2023 RBC (Bld) [#/Vol] 5.05 10*6/uL High 3.60-5.00 [facility] Comment on above: Performed By: #### V [id number], CUMRSA, ALB, HGB, A1C WTH eA #### [place] [address] [place] #### [place]OT[place] #### [facility] , Fructosamineon 09-27-2023 Fructosamine 235 umol/L Normal 0-285 [facility] Comment on above: Result Comment: Publ ished reference interval for apparently healthy subjects between age 20 and 60 is 205 - 285 umol/L and in a poorly controlled diabetic population is 228 - 563 umol/L with a mean of 396 umol/L. Performed at: [facility] [place] [id number] Refining Still Operator: Samuel Jauregui PhD, Phone: [phone] PERFORMED BY: [place] [address] PATHOLOGIST RESERVE OFFICER ULYSSES BAIN M.D. Performed By: #### V [id number], CUMRSA, ALB, HGB, A1C WTH eA #### [place] [address] [place] #### [place]OT[place] #### [facility] , Fructosamine [Moles/volume] in Serum or PlasmaOrdered By: Kirstin Dee on 09-27-2023 Fructosamine [Moles/Vol] 235 umol/L 0-285 [facility] Comment on above: Published reference interval for apparently healthysubjects between age 20 and 60 is 205 - 285 umol/L and in apoorly controlled diabetic population is 228 - 563 umol/Lwith a mean of 396 umol/L.Performed at: [facility] [address] [id number] Director: Samuel Jauregui PhD, Phone: [phone] Glucose [Mass/volume] in Ser um or PlasmaOrdered By: Kirstin Dee on 09-27-2023 Glucose [Mass/Vol] 120 mg/dL High 70-100 [facility] Comment on above: ADA recommended refe rence rangeRandom Glucose Reference Range is dependent on time and content of last meal. Glucose of more than 200 mg/dL in a nonstressed, ambulatory subject supports the diagnosis of Diabetes Mellitus. Result Comment: [place] om Glucose Reference Range is dependent on time and content of last meal. Glucose of more than 200 mg/dL in a nonstressed, ambulatory subject supports the diagnosis of Diabetes Mellitus. ADA recommended reference range Performed By: #### V [id number], CUMRSA, ALB, HGB, A1C WTH eA #### [place] [address] [place] #### [place] #### [facility] , Hematocrit [Volume Fraction] of Blood by Automated countOrdered By: Kirstin Dee on 09-27-2023 Hematocrit (Bld) [Volume fraction] 42.9 % Normal 34.0-46.4 [facility] Comment on above: Performed By: #### V [id number], CUMRSA, ALB, HGB, A1C WTH eA #### [place] [address] [place] #### [place]OT[place] #### [facility] , Hemoglobin [Mass/volume] in BloodOrdered By: Kirstin Dee on 09-27-2023 Hemoglobin (Bld) [Mass/Vol] 14.5 g/dL Normal 11.8-15.4 [facility] Comment on above: Performed By: #### V [id number], CUMRSA, ALB, HGB, A1C WTH eA #### [place] [address] [place] #### [place] #### [facility] , Ketones Auto test strip (U) [Mass/Vol]Ordered By: Kirstin Dee on 09-27-2023 Ketones (U) [Mass/Vol] Negative Negative [facility] Leukocytes [#/volume] correc yomi for nucleated erythrocytes in Blood by Automated counOrdered By: Kirstin Dee on 09-27-2023 WBC corrected for nucl RBC Auto (Bld) [#/Vol] 8.6 10*3/uL 3.8-11.6 [facility] Leukocytes [#/volume] in Blo od by Automated countOrdered By: Kirstin Dee on 09-27-2023 WBC (Bld) [#/Vol] 8.6 10*3/uL Normal 3.8-11.6 [facility] Comment on above: Performed By: #### V [id number], CUMRSA, ALB, HGB, A1C WTH eA #### [facility] [address] [place] [address] [place] #### [place]OT[place] #### [facility] , Lymphocytes [#/volume] in Bl ood by Automated countOrdered By: Kirstin Dee on 09-27-2023 Lymphocytes (Bld) [#/Vol] 2.2 10*3/uL Normal 1.00-4.8 [facility] Comment on above: Performed By: #### V [id number], CUMRSA, ALB, HGB, A1C WTH eA #### [facility] [address] [place] [address] [place] #### N[place]OT[place] #### [facility] , Lymphocytes/100 leukocytes i n Blood by Automated countOrdered By: Kirstin Dee on 09-27-2023 Lymphocytes/100 WBC (Bld) 26.0 % Normal . [facility] Comment on above: Performed By: #### V [id number], CUMRSA, ALB, HGB, A1C WTH eA #### [facility] [address] [place] [address] [place] #### [place] #### [facility] , MCH [Entitic mass] by Automa yomi countOrdered By: Kirstin Dee on 09-27-2023 MCH (RBC) [Entitic mass] 28.7 pg Normal 24.7-34.3 [facility] Comment on above: Performed By: #### V [id number], CUMRSA, ALB, HGB, A1C WTH eA #### [facility] [address] [place] [address] [place] #### [place] #### [facility] , MCHC Auto (RBC) [Mass/Vol]Or dered By: Kirstin Dee on 09-27-2023 MCHC (RBC) [Mass/Vol] 33.8 g/dL 32.0-35.0 [facility] MCV [Entitic volume] by Auto mated countOrdered By: Kirstin Dee on 09-27-2023 MCV (RBC) [Entitic vol] 85.0 fL Normal 80-100 [facility] Comment on above: Performed By: #### V [id number], CUMRSA, ALB, HGB, A1C WTH eA #### [facility] [address] [place] [address] [place] #### [place]OT[place] #### [facility] , Neutrophils [#/volume] in Bl ood by Automated countOrdered By: Kirstin Dee on 09-27-2023 Neutrophils (Bld) [#/Vol] 5.5 10*3/uL Normal 1.8-7.7 [facility] Comment on above: Performed By: #### V [id number], CUMRSA, ALB, HGB, A1C WTH eA #### [facility] [address] [place] [address] [place] #### N[place]OT[place] #### [facility] , Nitrite Test strip Ql (U)Ord ered By: Kirstin Dee on 09-27-2023 Nitrite Ql (U) Negative Negative [facility] No Panel InformationOrdered By: Kirstin Dee on 09-27-2023 Estimated GFR (CKD-EPI) > 60.0 mL/Min [facility] Creatinine Clearance (Chem N/A [facility] Nucleated erythrocytes [Pres ence] in Blood by Automated countOrdered By: Kirstin Dee on 09-27-2023 Nucleated RBC Auto Ql (Bld) 0.1 /100{WBC} 0-0.5 [facility] PST Type and Screenon 2023 ABO and Rh group Nom (Bld) Blood group AB Rh(D) positive Normal [facility] Comment on above: Order Comment: Reaso n for Exam Primary osteoarthritis of right knee;Age-related osteoporosi Result Comment: PERF ORMED BY: [place] [address] PATHOLOGIST RESERVE OFFICER ULYSSES BAIN M.D. Platelet mean volume [Entiti c volume] in Blood by Automated countOrdered By: Kirstin Dee on 09-27-2023 Platelet mean volume (Bld) [Entitic vol] 8.3 fL Normal 6.3-10.7 [facility] Comment on above: Performed By: #### V [id number], CUMRSA, ALB, HGB, A1C WTH eA #### [address] #### [place] #### [facility] , Platelets [#/volume] in Bloo d by Automated countOrdered By: Kirstin Dee on 09-27-2023 Platelets (Bld) [#/Vol] 322 10*3/uL Normal 150-450 [facility] Comment on above: Performed By: #### V [id number], CUMRSA, ALB, HGB, A1C WTH eA #### [address] #### [place]OT[place] #### [facility] , Potassium [Moles/volume] in Serum or PlasmaOrdered By: Kirstin Dee on 09-27-2023 Potassium [Moles/Vol] 4.3 mmol/L Normal 3.5-5.1 [facility] Comment on above: Performed By: #### V [id number], CUMRSA, ALB, HGB, A1C WTH eA #### [place] [address] [place] #### NICOTINE #### [facility] , Protein Auto test strip (U) [Mass/Vol]Ordered By: Kirstin Dee on 09-27-2023 Protein (U) [Mass/Vol] Negative Negative [facility] Serum or plasma anion gap de terminationOrdered By: Kirstin Dee on 09-27-2023 Anion gap [Moles/Vol] 12.1 mmol/L Normal 6.0-15.0 [facility] Comment on above: Performed By: #### V [id number], CUMRSA, ALB, HGB, A1C WTH eA #### [address] #### [place] #### [facility] , Sodium [Moles/volume] in Ser um or PlasmaOrdered By: Kirstin Dee on 09-27-2023 Sodium [Moles/Vol] 136 mmol/L Normal 136-145 [facility] Comment on above: Performed By: #### V [id number], CUMRSA, ALB, HGB, A1C WTH eA #### [place] [address] [place] #### NICOTINE #### [facility] , Specific gravity Auto test s trip (U) [Rel density]Ordered By: Kirstin Dee on 09-27-2023 Specific gravity (U) [Rel density] 1.006 1.001-1.03 0 [facility] Urea nitrogen [Mass/volume] in Serum or PlasmaOrdered By: Kirstin Dee on 09-27-2023 Urea nitrogen [Mass/Vol] 14 mg/dL Normal 7-25 [facility] Comment on above: Performed By: #### V [id number], CUMRSA, ALB, HGB, A1C WTH eA #### [place] [address] [place] #### NICOTINE #### [facility] , Urinalysison 09-27-2023 Appearance (U) Clear Normal Clear [facility] Comment on above: Order Comment: Reaso n for Exam Primary osteoarthritis of right knee;Age-related osteoporosi Performed By: #### V [id number], CUMRSA, ALB, HGB, A1C WTH eA #### [place] [address] [place] #### NICOTINE #### [facility] , Bilirubin,Urine Negative Normal Negative [facility] Comment on above: Order Comment: Reaso n for Exam Primary osteoarthritis of right knee;Age-related osteoporosi Performed By: #### V [id number], CUMRSA, ALB, HGB, A1C WTH eA #### [place] [address] [place] #### NICOTINE #### [facility] , Glucose Ql (U) Normal Normal Normal [facility] Comment on above: Order Comment: Reaso n for Exam Primary osteoarthritis of right knee;Age-related osteoporosi Performed By: #### V [id number], CUMRSA, ALB, HGB, A1C WTH eA #### [address] #### N[place]OTINE #### [facility] , Ketones Ql (U) Negative Normal Negative [facility] Comment on above: Order Comment: Reaso n for Exam Primary osteoarthritis of right knee;Age-related osteoporosi Performed By: #### V [id number], CUMRSA, ALB, HGB, A1C WTH eA #### [place] [address] [place] #### NICOTINE #### [facility] , Leukocyte esterase Test strip Ql (U) Negative Normal Negative [facility] Comment on above: Order Comment: Reaso n for Exam Primary osteoarthritis of right knee;Age-related osteoporosi Performed By: #### V [id number], CUMRSA, ALB, HGB, A1C WTH eA #### [place] [address] [place] #### NICOTINE #### [facility] , Nitrite,Urine Negative Normal Negative [facility] Comment on above: Order Comment: Reaso n for Exam Primary osteoarthritis of right knee;Age-related osteoporosi Performed By: #### V [id number], CUMRSA, ALB, HGB, A1C WTH eA #### [address] #### N[place]OTINE #### [facility] , Occult Blood,Urine Negative Normal Negative [facility] Comment on above: Order Comment: Reaso n for Exam Primary osteoarthritis of right knee;Age-related osteoporosi Result Comment: PERF ORMED BY: [place] [address] PATHOLOGIST RESERVE OFFICER ULYSSES BAIN M.D. Performed By: #### V [id number], CUMRSA, ALB, HGB, A1C WTH eA #### [address] #### N[place]OT[place] #### [facility] , Protein,Urine Negative Normal Negative [facility] Comment on above: Order Comment: Reaso n for Exam Primary osteoarthritis of right knee;Age-related osteoporosi Performed By: #### V [id number], CUMRSA, ALB, HGB, A1C WTH eA #### [address] #### NICOTINE #### [facility] , Specificy [place],Urine 1.006 Normal 1.001-1.03 0 [facility] Comment on above: Order Comment: Reaso n for Exam Primary osteoarthritis of right knee;Age-related osteoporosi Performed By: #### V [id number], CUMRSA, ALB, HGB, A1C WTH eA #### [facility] [address] [place] [address] [place] #### NICOTINE #### [facility] , Urobilinogen,Urine Normal Normal Normal [facility] Comment on above: Order Comment: Reaso n for Exam Primary osteoarthritis of right knee;Age-related osteoporosi Performed By: #### V [id number], CUMRSA, ALB, HGB, A1C WT eA #### [facility] [address] [place] [address] #### N[place]OTINE #### [facility] , Urine clarity by refractomet ry automatedOrdered By: Kirstin Dee on 09-27-2023 Clarity Refractometry automated (U) Clear Clear [facility] Urine glucose measurement by automated test strip (mass/volume)Ordered By: Kirstin Dee on 09-27-2023 Glucose Auto test strip (U) [Mass/Vol] Normal mg/dL Normal [facility] Urine hemoglobin detection b y automated test stripOrdered By: Kirstin Dee on 09-27-2023 Hemoglobin Auto test strip Ql (U) Negative Negative [facility] Urine leukocyte esterase det ection by automated test stripOrdered By: Kirstin Dee on 09-27-2023 Leukocyte esterase Auto test strip Ql (U) Negative Negative [facility] Urine pH measurement by auto mated test stripOrdered By: Kirstin Dee on 09-27-2023 pH (U) 7.0 [pH] Normal 5.0-9.0 [facility] Comment on above: Order Comment: Reaso n for Exam Primary osteoarthritis of right knee;Age-related osteoporosi Performed By: #### V [id number], CUMRSA, ALB, HGB, A1C [facility] eA #### [address] #### NICOTINE #### [facility] , Urobilinogen Auto test strip (U) [Mass/Vol]Ordered By: Kirstin Dee on 09-27-2023 Urobilinogen (U) [Mass/Vol] Normal mg/dL Normal [facility] Automated basophil %Ordered By: Kirstin Dee on 08-24-2023 Basophils/100 WBC (Bld) 0.6 % Normal . [facility] Comment on above: Performed By: #### F RUC #### [facility] , #### BMP, CBC #### [address] Automated basophil countOrde red By: Kirstin Dee on 08-24-2023 Basophils (Bld) [#/Vol] 0.1 10*3/uL Normal 0.0-0.2 [facility] Comment on above: Result Comment: PERF ORMED BY: [place] [address] PATHOLOGIST RESERVE OFFICER ULYSSES BAIN M.D. Performed By: #### F RUC #### [facility] , #### BMP, CBC #### [address] Automated blood monocyte cou ntOrdered By: Kirstin Dee on 08-24-2023 Monocytes (Bld) [#/Vol] 0.9 10*3/uL High 0.0-0.8 [facility] Comment on above: Performed By: #### F RUC #### [facility] , #### BMP, CBC #### [address] Automated eosinophil %Ordere d By: Kirstin Dee on 08-24-2023 Eosinophils/100 WBC (Bld) 1.0 % Normal . [facility] Comment on above: Performed By: #### F RUC #### [facility] , #### BMP, CBC #### [address] Automated eosinophil countOr dered By: Kirstin Dee on 08-24-2023 Eosinophils (Bld) [#/Vol] 0.1 10*3/uL Normal 0.0-0.45 [facility] Comment on above: Performed By: #### F RUC #### [facility] , #### BMP, CBC #### [facility] [address] [place] [address] Automated monocyte %Ordered By: Kirstin Dee on 08-24-2023 Monocytes/100 WBC (Bld) 9.1 % Normal . [facility] Comment on above: Performed By: #### F RUC #### [facility] , #### BMP, CBC #### [address] Automated neutrophil %Ordere d By: Kirstin Dee on 08-24-2023 Neutrophils/100 WBC (Bld) 69.1 % Normal . [facility] Comment on above: Performed By: #### F RUC #### [facility] , #### BMP, CBC #### [address] Automated urine color determ inationOrdered By: Kirstin eDe on 08-24-2023 Color (U) Yellow Normal Yellow [facility] Comment on above: Order Comment: Name Collection Type:: Clean-Voided Midstream Performed By: #### U A #### [address] Basic Metabolic Panelon 07-28 GFR/1.73 sq M.predicted MDRD (S/P/Bld) [Vol rate/Area] mL/min/{1.73_m2} Normal [facility] Comment on above: Performed By: #### F RUC #### [facility] , #### BMP, CBC #### [address] Bilirubin Test strip Ql (U)O rdered By: Kirstin Dee on 08-24-2023 Bilirubin Ql (U) Negative Negative [facility] Calcium [Mass/volume] in Ser um or PlasmaOrdered By: Kirstin Dee on 08-24-2023 Calcium [Mass/Vol] 9.5 mg/dL Normal 8.6-10.3 [facility] Comment on above: Result Comment: PERF ORMED BY: [place] [address] PATHOLOGIST RESERVE OFFICER ULYSSES BAIN M.D. Performed By: #### F RUC #### [facility] , #### BMP, CBC #### [address] Carbon dioxide, total [Moles /volume] in Serum or PlasmaOrdered By: Kirstin Dee on 08-24-2023 CO2 [Moles/Vol] 27.5 mmol/L Normal 21.0-31.0 [facility] Comment on above: Performed By: #### F RUC #### [facility] , #### BMP, CBC #### [address] Chloride [Moles/volume] in S torsten or PlasmaOrdered By: Kirstin Dee on 08-24-2023 Chloride [Moles/Vol] 101 mmol/L Normal 98-107 [facility] Comment on above: Performed By: #### F RUC #### [facility] , #### BMP, CBC #### [address] Complete Blood Count Auto Di ffon 08-24-2023 Mean Corpuscular HGB Conc 33.7 g/dL Normal 32.0-35.0 [facility] Comment on above: Performed By: #### F RUC #### [facility] , #### BMP, CBC #### [address] NRBC% 0.1 /100{WBC} Normal 0-0.5 [facility] Comment on above: Performed By: #### F RUC #### [facility] , #### BMP, CBC #### [place] [address] [place] Creatinine [Mass/volume] in Serum or PlasmaOrdered By: Kirstin Dee on 08-24-2023 Creatinine [Mass/Vol] 0.60 mg/dL Normal 0.60-1.20 [facility] Comment on above: Performed By: #### F RUC #### [facility] , #### BMP, CBC #### [address] [place] [address] [place] ECG 12 lead ECGon 08-24-2023 ECG 12 lead ECG [facility] [place] [address] [place] [address] Electrocardiograph Report Signed Patient: Maddison Ritter MR#: [id number] 98 : 1960 Acct:[id number] Age/Sex: 62 / F ADM Date: 08/24/23 Loc: Room: Type: [facility] Attending Dr: Kirstin Dee II, MD Ordering Provider: Kirstin Dee MD Date of Service: 08/24/23 ECG/ECG 12 lead ECG: rtka Copies to: Test Reason : Blood Pressure : / mmHG Vent. Rate : 080 BPM Atrial Rate : 080 BPM P-R Int : 140 ms QRS Dur : 090 ms QT Int : 376 ms P-R-T Axes : 067 073 073 degrees QTc Int : 433 ms Normal sinus rhythm Normal ECG No previous ECGs available Confirmed by ABDIAS VARGHESE [facility] ([id number]) on 08/24/2023 3:10:38 PM Referred By: LEILA Electronically Signed By:MEY KOTHARI MD [facility] Transcribed By: HAYLEY Signed By Mey Kothari MD, FACC 08/24/23 1510 Normal [facility] Erythrocyte distribution wid th [Ratio] by Automated countOrdered By: Kirstin Dee on 08-24-2023 Erythrocyte distribution width (RBC) [Ratio] 13.7 % Normal 11.9-15.3 [facility] Comment on above: Performed By: #### F RUC #### [facility] , #### BMP, CBC #### [facility] [address] [place] [address] Erythrocytes [#/volume] in B lood by Automated countOrdered By: Kirstin Dee on 08-24-2023 RBC (Bld) [#/Vol] 5.01 10*6/uL High 3.60-5.00 [facility] Comment on above: Performed By: #### F RUC #### [facility] , #### BMP, CBC #### [facility] [address] [place] [address] [place] Fructosamineon 08-24-2023 Fructosamine 209 umol/L Normal 0-285 [facility] Comment on above: Result Comment: Publ ished reference interval for apparently healthy subjects between age 20 and 60 is 205 - 285 umol/L and in a poorly controlled diabetic population is 228 - 563 umol/L with a mean of 396 umol/L. Performed at: [facility] [address] [place], [place] [id number] [employer] Still Operator: Samuel Jauregui PhD, Phone: [phone] PERFORMED BY: [place] [address] PATHOLOGIST RESERVE OFFICER ULYSSES BAIN M.D. Performed By: #### F RUC #### [facility] , #### BMP, CBC #### [address] Fructosamine [Moles/volume] in Serum or PlasmaOrdered By: Kirstin Dee on 08-24-2023 Fructosamine [Moles/Vol] 209 umol/L 0-285 [facility] Comment on above: Published reference interval for apparently healthysubjects between age 20 and 60 is 205 - 285 umol/L and in apoorly controlled diabetic population is 228 - 563 umol/Lwith a mean of 396 umol/L.Performed at: [facility] [place], [place] [id number] Director: Samuel Jauregui PhD, Phone: [phone] Glucose [Mass/volume] in Ser um or PlasmaOrdered By: Kirstin Dee on 08-24-2023 Glucose [Mass/Vol] 87 mg/dL Normal 70-100 [facility] Comment on above: ADA recommended refe rence rangeRandom Glucose Reference Range is dependent on time and content of last meal. Glucose of more than 200 mg/dL in a nonstressed, ambulatory subject supports the diagnosis of Diabetes Mellitus. Result Comment: [place] om Glucose Reference Range is dependent on time and content of last meal. Glucose of more than 200 mg/dL in a nonstressed, ambulatory subject supports the diagnosis of Diabetes Mellitus. ADA recommended reference range Performed By: #### F RUC #### [facility] , #### BMP, CBC #### [address] Hematocrit [Volume Fraction] of Blood by Automated countOrdered By: Kirstin Dee on 08-24-2023 Hematocrit (Bld) [Volume fraction] 42.4 % Normal 34.0-46.4 [facility] Comment on above: Performed By: #### F RUC #### [facility] , #### BMP, CBC #### [address] Hemoglobin [Mass/volume] in BloodOrdered By: Kirstin Dee on 08-24-2023 Hemoglobin (Bld) [Mass/Vol] 14.3 g/dL Normal 11.8-15.4 [facility] Comment on above: Performed By: #### F RUC #### [facility] , #### BMP, CBC #### [address] Ketones Auto test strip (U) [Mass/Vol]Ordered By: Kirstin Dee on 08-24-2023 Ketones (U) [Mass/Vol] Negative Negative [facility] Leukocytes [#/volume] correc yomi for nucleated erythrocytes in Blood by Automated counOrdered By: Kirstin Dee on 08-24-2023 WBC corrected for nucl RBC Auto (Bld) [#/Vol] 10.1 10*3/uL 3.8-11.6 [facility] Leukocytes [#/volume] in Blo od by Automated countOrdered By: Kirstin Dee on 08-24-2023 WBC (Bld) [#/Vol] 10.1 10*3/uL Normal 3.8-11.6 [facility] Comment on above: Performed By: #### F RUC #### [facility] , #### BMP, CBC #### [address] Lymphocytes [#/volume] in Bl ood by Automated countOrdered By: Kirstin Dee on 08-24-2023 Lymphocytes (Bld) [#/Vol] 2.0 10*3/uL Normal 1.00-4.8 [facility] Comment on above: Performed By: #### F RUC #### [facility] , #### BMP, CBC #### [address] Lymphocytes/100 leukocytes i n Blood by Automated countOrdered By: Kirstin Dee on 08-24-2023 Lymphocytes/100 WBC (Bld) 20.2 % Normal . [facility] Comment on above: Performed By: #### F RUC #### [facility] , #### BMP, CBC #### [address] MCH [Entitic mass] by Automa yomi countOrdered By: Kirstin Dee on 08-24-2023 MCH (RBC) [Entitic mass] 28.5 pg Normal 24.7-34.3 [facility] Comment on above: Performed By: #### F RUC #### [facility] , #### BMP, CBC #### [address] MCHC Auto (RBC) [Mass/Vol]Or dered By: Kirstin Dee on 08-24-2023 MCHC (RBC) [Mass/Vol] 33.7 g/dL 32.0-35.0 [facility] MCV [Entitic volume] by Auto mated countOrdered By: Kirstin Dee on 08-24-2023 MCV (RBC) [Entitic vol] 84.6 fL Normal 80-100 [facility] Comment on above: Performed By: #### F RUC #### [facility] , #### BMP, CBC #### [address] [place] [address] [place] Neutrophils [#/volume] in Bl ood by Automated countOrdered By: Kirstin Dee on 08-24-2023 Neutrophils (Bld) [#/Vol] 7.0 10*3/uL Normal 1.8-7.7 [facility] Comment on above: Performed By: #### F RUC #### [facility] , #### BMP, CBC #### [facility] [address] [place] [address] Nitrite Test strip Ql (U)Ord ered By: Kirstin Dee on 08-24-2023 Nitrite Ql (U) Negative Negative [facility] No Panel InformationOrdered By: Kirstin Dee on 08-24-2023 Estimated GFR (CKD-EPI) > 60.0 mL/Min [facility] Creatinine Clearance (Chem N/A [facility] Nucleated erythrocytes [Pres ence] in Blood by Automated countOrdered By: Kirstin Dee on 08-24-2023 Nucleated RBC Auto Ql (Bld) 0.1 /100{WBC} 0-0.5 [facility] PST Type and Screenon 2023 ABO and Rh group Nom (Bld) Blood group AB Rh(D) positive Normal [facility] Comment on above: Order Comment: Reaso n for Exam Primary osteoarthritis of right knee;Age-related osteoporosi Platelet mean volume [Entiti c volume] in Blood by Automated countOrdered By: Kirstin Dee on 08-24-2023 Platelet mean volume (Bld) [Entitic vol] 7.9 fL Normal 6.3-10.7 [facility] Comment on above: Performed By: #### F RUC #### [facility] , #### BMP, CBC #### [facility] [address] [place] [address] [place] Platelets [#/volume] in Bloo d by Automated countOrdered By: Kirstin Dee on 08-24-2023 Platelets (Bld) [#/Vol] 308 10*3/uL Normal 150-450 [facility] Comment on above: Performed By: #### F RUC #### [facility] , #### BMP, CBC #### [facility] [address] [place] [address] [place] Potassium [Moles/volume] in Serum or PlasmaOrdered By: Kirstin Dee on 08-24-2023 Potassium [Moles/Vol] 4.3 mmol/L Normal 3.5-5.1 [facility] Comment on above: Performed By: #### F RUC #### [facility] , #### BMP, CBC #### [facility] [address] Protein Auto test strip (U) [Mass/Vol]Ordered By: Kirstin Dee on 08-24-2023 Protein (U) [Mass/Vol] Negative Negative [facility] Serum or plasma anion gap de terminationOrdered By: Kirstin Dee on 08-24-2023 Anion gap [Moles/Vol] 12.8 mmol/L Normal 6.0-15.0 [facility] Comment on above: Performed By: #### F RUC #### [facility] , #### BMP, CBC #### [address] Sodium [Moles/volume] in Ser um or PlasmaOrdered By: Kirstin Dee on 08-24-2023 Sodium [Moles/Vol] 137 mmol/L Normal 136-145 [facility] Comment on above: Performed By: #### F RUC #### [facility] , #### BMP, CBC #### [facility] [address] Specific gravity Auto test s trip (U) [Rel density]Ordered By: Kirstin Dee on 08-24-2023 Specific gravity (U) [Rel density] 1.010 1.001-1.03 0 [facility] Urea nitrogen [Mass/volume] in Serum or PlasmaOrdered By: Kirstin Dee on 08-24-2023 Urea nitrogen [Mass/Vol] 13 mg/dL Normal 7-25 [facility] Comment on above: Performed By: #### F RUC #### [facility] , #### BMP, CBC #### [place] [address] [place] Urinalysison 08-24-2023 Appearance (U) Clear Normal Clear [facility] Comment on above: Order Comment: Name Collection Type:: Clean-Voided Midstream Performed By: #### U A #### [address] Bilirubin,Urine Negative Normal Negative [facility] Comment on above: Order Comment: Name Collection Type:: Clean-Voided Midstream Performed By: #### U A #### [address] Glucose Ql (U) Normal Normal Normal [facility] Comment on above: Order Comment: Name Collection Type:: Clean-Voided Midstream Performed By: #### U A #### [address] Ketones Ql (U) Negative Normal Negative [facility] Comment on above: Order Comment: Name Collection Type:: Clean-Voided Midstream Performed By: #### U A #### [address] Leukocyte esterase Test strip Ql (U) Negative Normal Negative [facility] Comment on above: Order Comment: Name Collection Type:: Clean-Voided Midstream Performed By: #### U A #### [place] [address] [place] Nitrite,Urine Negative Normal Negative [facility] Comment on above: Order Comment: Name Collection Type:: Clean-Voided Midstream Performed By: #### U A #### [place] [address] [place] Occult Blood,Urine Negative Normal Negative [facility] Comment on above: Order Comment: Name Collection Type:: Clean-Voided Midstream Result Comment: PERF ORMED BY: [place] [address] PATHOLOGIST RESERVE OFFICER ULYSSES BAIN M.D. Performed By: #### U A #### [facility] [address] Protein,Urine Negative Normal Negative [facility] Comment on above: Order Comment: Name Collection Type:: Clean-Voided Midstream Performed By: #### U A #### [facility] [address] Specificy [place],Urine 1.010 Normal 1.001-1.03 0 [facility] Comment on above: Order Comment: Name Collection Type:: Clean-Voided Midstream Performed By: #### U A #### [facility] [address] Urobilinogen,Urine Normal Normal Normal [facility] Comment on above: Order Comment: Name Collection Type:: Clean-Voided Midstream Performed By: #### U A #### [address] Urine clarity by refractomet ry automatedOrdered By: Kirstin Dee on 08-24-2023 Clarity Refractometry automated (U) Clear Clear [facility] Urine glucose measurement by automated test strip (mass/volume)Ordered By: Kirstin Dee on 08-24-2023 Glucose Auto test strip (U) [Mass/Vol] Normal mg/dL Normal [facility] Urine hemoglobin detection b y automated test stripOrdered By: Kirstin Dee on 08-24-2023 Hemoglobin Auto test strip Ql (U) Negative Negative [facility] Urine leukocyte esterase det ection by automated test stripOrdered By: Kirstin Dee on 08-24-2023 Leukocyte esterase Auto test strip Ql (U) Negative Negative [facility] Urine pH measurement by auto mated test stripOrdered By: Kirstin Dee on 08-24-2023 pH (U) 7.5 [pH] Normal 5.0-9.0 [facility] Comment on above: Order Comment: Name Collection Type:: Clean-Voided Midstream Performed By: #### U A #### [address] Urobilinogen Auto test strip (U) [Mass/Vol]Ordered By: Kirstin Dee on 08-24-2023 Urobilinogen (U) [Mass/Vol] Normal mg/dL Normal [facility] XR tibia fibula RT 2V*on XR tibia fibula RT 2V* [facility] [place] [address] [place] [address] XRay Report Signed Patient: Maddison Ritter MR#: [id number] 98 : 1960 Acct:[id number] Age/Sex: 62 / F ADM Date: 08/24/23 Loc: [facility] Room: Type: [facility] Attending Dr: Kirstin Dee II, MD Copies to: Kirstin Dee MD Ordering Provider: Kirstin Dee MD Date of Service: 08/24/23 XR/XR tibia fibula RT 2V*: M17.11 - Unilateral primary osteoarthritis, right knee ([id number]) XR/XR femur RT 2V*: M17.11 - Unilateral primary osteoarthritis, right knee Rightfemur plain film COMPARISON: None HISTORY: Preop assessment for right total knee arthroplasty ACUTE FINDINGS: None DEGENERATIVE CHANGE: The bilateral moderate medial compartment knee degeneration greater on the right. Unremarkable hips. SOFT TISSUE FINDINGS: Unremarkable JOINT EFFUSION: None POSTOP CHANGES: None BONE MINERALIZATION: Adequate XR/XR femur RT 2V* IMPRESSION: Bilateral knee medial compartment degeneration. Right tibia and fibula plain film COMPARISON: None Acute findings: None Degenerative change: bilateral moderate medial compartment knee degeneration greater on the right. Unremarkable ankles. Soft tissue findings: Unremarkable Joint effusion: None Postop changes: None IMPRESSION: Bilateral knee medial compartment degeneration. Impression dictated by: Singh Moore M.D.08/24/2023 2:56 PM Dictation Location: [place] [address] Transcribed By: [facility] 08/24/23 1456 Dictated By: Singh Moore DO 08/24/23 1452 Signed By: 08/24/23 1456 Normal [facility] A1C with Estimated Average G luon 07-27-2023 Glucose [Mass/Vol] 114 mg/dL Normal [facility] Comment on above: Order Comment: Reaso n for Exam Primary osteoarthritis of right knee;Age-related osteoporosi Result Comment: PERF ORMED BY: [facility] [address] [facility] [place] [address] PATHOLOGIST RESERVE OFFICER ULYSSES BAIN M.D. Performed By: #### V [id number], CUMRSA, ALB, HGB, A1C WTH eA #### [facility] [address] [place] [address] [place] #### NICOTINE #### [facility] , Albumin Levelon 07-27-2023 Albumin [Mass/Vol] 4.3 g/dL Normal 3.5-5.7 [facility] Comment on above: Order Comment: Reaso n for Exam Primary osteoarthritis of right knee;Age-related osteoporosi Performed By: #### V [id number], CUMRSA, ALB, HGB, A1C WTH eA #### [facility] [address] [place] [address] [place] #### NICOTINE #### [facility] , Albumin [Mass/volume] in Ser um or Plasma by Bromocresol green (BCG) dye binding methoOrdered By: Kirstin Dee on 07-27-2023 Albumin BCG dye [Mass/Vol] 4.3 g/dL 3.5-5.7 [facility] Cotinine [Mass/volume] in Se rum or PlasmaOrdered By: Kirstin Dee on 07-27-2023 Cotinine [Mass/Vol] <1.0 ng/mL . [facility] Comment on above: This test was develo ped and its performance characteristicsdetermined by [employer]. It has not been cleared orapproved by the Food and Drug Administration.Cotinine levels greater than 20.0 are consistent with theuse of tobacco or tobacco cessation products.Performed at: [address] [id number] Director: Katia Cross MD, Phone: [phone] Glucose mean value [Mass/vol ume] in Blood Estimated from glycated hemoglobinOrdered By: Kirstin Dee on 07-27-2023 Average glucose Estimated from glycated hemoglobin (Bld) [Mass/Vol] 114 mg/dL [facility] Hemoglobin A1c percentageOrd ered By: Kirstin Dee on 07-27-2023 HbA1c (Bld) [Mass fraction] 5.6 % Normal 4.3-5.6 [facility] Comment on above: Increased risk for d iabetes: 5.7 - 6.4diabetes: >6.4glycemic control for adults with diabetes: <7.0 Order Comment: Reaso n for Exam Primary osteoarthritis of right knee;Age-related osteoporosi Result Comment: Incr eased risk for diabetes: 5.7 - 6.4 diabetes: >6.4 glycemic control for adults with diabetes: <7.0 Performed By: #### V [id number], CUMRSA, ALB, HGB, A1C WTH eA #### [facility] [address] [place] [address] #### NICOTINE #### [facility] , Hemoglobin [Mass/volume] in BloodOrdered By: Kirstin Dee on 07-27-2023 Hemoglobin (Bld) [Mass/Vol] 15.0 g/dL Normal 11.8-15.4 [facility] Comment on above: Order Comment: Reaso n for Exam Primary osteoarthritis of right knee;Age-related osteoporosi Result Comment: PERF ORMED BY: [place] [address] PATHOLOGIST RESERVE OFFICER ULYSSES BAIN M.D. Performed By: #### V [id number], CUMRSA, ALB, HGB, A1C WTH eA #### [facility] [address] [place] [address] [place] #### NICOTINE #### [facility] , MRSA Cultureon 07-27-2023 MRSA Culture Reason for Exam Prim odell osteoarthritis of right knee;Age-related osteoporosi Nasal Reason for Exam: Primary osteoarthritis of right knee;Age-related osteoporosi : Nasal ORGANISM: Methicillin Resis Staph Aureus (O:MRSA) Aerobic JANIE Charge (PCMIC38) SUSCEPTIBILITY ORGANISM: O:MRSA ANTIBIOTIC INTERPRETATION JANIE Azithromycin R >4 Ceftaroline S <0.5 Ciprofloxacin S <1 Clindamycin R <0.25 Linezolid S 2 Oxacillin R >2 Penicillin R 0.5 Tetracycline S <4 Trimethoprim/Sulfamethoxazo le S <0.5 Vancomycin S 2 S = SUSCEPTIBLE I = INTERMEDIATE R = RESISTANT BLANK = DATA NOT AVAILABLE, OR DRUG NOT ADVISABLE OR TESTED R* = RESISTANCE DUE TO EXTENDED SPECTRUM BETA-LACTAMASES ESBL = EXTENDED SPECTRUM BETA-LACTAMASE TFG = THYMIDINE-DEPENDENT STRAIN JOCELIN = BETA-LACTAMASE POSITIVE IB = INDUCIBLE BETA-LACTAMASE. APPEARS IN PLACE OF 'S' WITH SPECIES KNOWN TO POSSESS INDUCIBLE BETA-LACTAMASES. POTENTIALLY THEY MAY BECOME RESISTANT TO ALL B-LACTAM DRUGS. PERFORMED BY: [place] [address] PATHOLOGIST RESERVE OFFICER ULYSSES BAIN M.D. Normal [facility] Comment on above: Performed By: #### V [id number], CUMRSA, ALB, HGB, A1C WTH eA #### [facility] [address] [place] [address] [place] #### NICOTINE #### [facility] , MRSA isol Org specific cx Ql (Unsp spec)Ordered By: Kirstin Dee on 07-27-2023 MRSA Culture Methicillin Resis St aph Aureus [facility] MRSA Culture Methicillin Resis St aph Aureus [facility] Nicotine [Mass/volume] in Se rum or PlasmaOrdered By: Kirstin Dee on 07-27-2023 Nicotine [Mass/Vol] <1.0 ng/mL . [facility] Comment on above: This test was develo ped and its performance characteristicsdetermined by [facility]. It has not been cleared orapproved by the Food and Drug Administration.Nicotine levels greater than 2.0 are consistent with theuse of tobacco or tobacco cessation products. Nicotine/Cotinine Bloodon Cotinine, Blood <1.0 Normal . [facility] Comment on above: Order Comment: Reaso n for Exam Primary osteoarthritis of right knee;Age-related osteoporosi Result Comment: This test was developed and its performance characteristics determined by [facility]. It has not been cleared or approved by the Food and Drug Administration. Cotinine levels greater than 20.0 are consistent with the use of tobacco or tobacco cessation products. Performed at: [facility] [address] [id number] Refining Still Operator: Katia Cross MD, Phone: [phone] PERFORMED BY: [place] [id number] PATHOLOGIST RESERVE OFFICER ULYSSES BAIN M.D. Performed By: #### V [id number], CUMRSA, ALB, HGB, A1C WTH eA #### [address] #### NICOTINE #### [facility] , Nicotine, Blood <1.0 Normal . [facility] Comment on above: Order Comment: Reaso n for Exam Primary osteoarthritis of right knee;Age-related osteoporosi Result Comment: This test was developed and its performance characteristics determined by [facility]. It has not been cleared or approved by the Food and Drug Administration. Nicotine levels greater than 2.0 are consistent with the use of tobacco or tobacco cessation products. Performed By: #### V [id number], CUMRSA, ALB, HGB, A1C WTH eA #### [place] [address] [place] #### NICOTINE #### [facility] , Vitamin D 25 Hydroxy Totalon 07-27-2023 Vitamin D 25 Hydroxy Total 26.2 ng/mL Low 30-100 [facility] Comment on above: Order Comment: Reaso n for Exam Primary osteoarthritis of right knee;Age-related osteoporosi Result Comment: AYLIN MIN D STATUS 25(OH)VITAMIN D RANGE (ng/mL) Deficient <20 Insufficient 20 to <30 Sufficient 30 to 100 Reference: Oneida MF,Angela NC, Mega PATEL, et al. Evaluation,treatment, and prevention of vitamin D deficiency; an Endocrine Society clinical practice guideline. JCEM. 2010; 96(7):1911-30. PERFORMED BY: [place] [id number] PATHOLOGIST RESERVE OFFICER ULYSSES BAIN M.D. Performed By: #### V [id number], CUMRSA, ALB, HGB, A1C WTH eA #### [place] [address] [place] #### NICOTINE #### [facility] , Vitamin D+Metabolites [Mass/ volume] in Serum or PlasmaOrdered By: Kirstin Dee on 07-27-2023 Vitamin D+Metabolites [Mass/Vol] 26.2 ng/mL 30-100 [facility] Comment on above: VITAMIN D STATUS 25( OH)VITAMIN D RANGE (ng/mL) Deficient <20 Insufficient 20 to <30Sufficient 30 to 100Reference: Oneida MF,Angela FAY, Mega PATEL, et al. Evaluation,treatment, and prevention of vitamin D deficiency; an Endocrine Society clinical practice guideline. JCEM. 2010; 96(7):1911-30. XR lumbar spine AP/LAT/FLX/E XTon 05-11-2023 XR lumbar spine AP/LAT/FLX/EXT [facility] [place] [address] [place] [address] XRay Report Signed Patient: Maddison Ritter MR#: [id number] 98 : 1960 Acct:[id number] Age/Sex: 62 / F ADM Date: 05/11/23 Loc: [facility] [place] Room: Type: [facility] Attending Dr: Clay Traore DO Copies to: Clay Traore DO Ordering Provider: Clay Traore DO Date of Service: 05/11/23 XR/XR lumbar spine AP/LAT/FLX/EXT: PAIN LUMBAR SPINE - 4 views CLINICAL HISTORY: Low back pain radiates into left buttock. COMPARISON: None FINDINGS: Vertebral body heights appear maintained. Diffuse facet joint degenerative changes with associated 7 mm of anterolisthesis of L4 on L5 with mild disc space narrowing at L4-L5 and L5-S1. No pathological motion on flexion or extension views. SI joints also demonstrate degenerative change. XR/XR lumbar spine AP/LAT/FLX/EXT IMPRESSION: DEGENERATIVE CHANGES OF THE LUMBAR SPINE WITH ASSOCIATED 7 MM OF ANTEROLISTHESIS OF L4 ON L5 WITH MILD DISC SPACE NARROWING L4-L5 AND L5-S1. Impression dictated by: Brendon Hauser Jr., D.O.05/11/2023 6:55 PM Dictation Location: [place] [address] Transcribed By: [facility] 05/11/231854 Dictated By: Brendon Hauser Jr DO 05/11/231853 Signed By: 05/11/231854 Normal [facility] RHEUMATOID FACTORon 07-24-19 RA Latex Turbid. 10.8 IU/mL Normal <14.0 [facility] Comment on above: Performed By: #### R F #### [facility] [address] [place] [address] Dr. Kanchan Valencia CBC AUTO DIFFon 07-23-2022 BASO # 0.0 103/ul Normal 0.0-0.1 [facility] Comment on above: Performed By: #### C BC #### [facility] [address] [place] [address] Dr. Kanchan Valencia Basophils/100 WBC (Bld) 0.5 % Normal 0.2-2.0 [facility] Comment on above: Performed By: #### C BC #### [facility] [address] [place] [address] Dr. Kanchan Valencia EO # 0.1 103/ul Normal 0.0-0.7 [facility] Comment on above: Performed By: #### C BC #### [facility] [address] [place] [address] Dr. Kanchan Valencia Eosinophils/100 WBC (Bld) 1.9 % Normal 0.9-7.0 [facility] Comment on above: Performed By: #### C BC #### [facility] [address] [place] [address] Dr. Kanchan Valencia Erythrocyte distribution width (RBC) [Ratio] 12.9 % Normal 11.0-15.0 [facility] Comment on above: Performed By: #### C BC #### [facility] [address] [place] [address] Dr. Kanchan Valencia Hematocrit (Bld) [Volume fraction] 42.4 % Normal 36.0-48.0 [facility] Comment on above: Performed By: #### C BC #### [facility] [address] [place] [address] Dr. Kanchan Valencia Hemoglobin (Bld) [Mass/Vol] 15.1 g/dL Normal 12.0-16.0 [facility] Comment on above: Performed By: #### C BC #### [facility] [address] [place] [address] Dr. Kanchan Valencia IG # 0.01 10e3/ul Normal 0.00-0.03 [facility] Comment on above: Performed By: #### C BC #### [facility] [address] [place] [address] Dr. Kanchan Valencia IG % 0.1 % Normal 0.0-0.5 [facility] Comment on above: Performed By: #### C BC #### [facility] [address] [place] [address] Dr. Kanchan Valencia LYMPH # 2.0 103/ul Normal 1.2-3.8 [facility] Comment on above: Performed By: #### C BC #### [facility] [address] [place] [address] Dr. Kanchan Valencia Lymphocytes/100 WBC (Bld) 27.9 % Normal 20.5-60.0 [facility] Comment on above: Performed By: #### C BC #### [facility] [address] [place] [address] Dr. Kanchan Valencia MANUAL DIFF REQ NO Normal [facility] Comment on above: Performed By: #### C BC #### [facility] [address] [place] [address] Dr. Kanchan Valencia MCH (RBC) [Entitic mass] 28.8 pg Normal 26.7-34.0 [facility] Comment on above: Performed By: #### C BC #### [facility] [address] [place] [address] Dr. Kanchan Valencia MCHC (RBC) [Mass/Vol] 35.6 g/dL Critically high 29.9-35.2 [facility] Comment on above: Performed By: #### C BC #### [facility] [address] [place] [address] [address] Kanchan Valencia MCV (RBC) [Entitic vol] 80.9 fL Critically low 81.0-99.0 [facility] Comment on above: Performed By: #### C BC #### [facility] [address] [place] [address] [address] Kanchan Valencia MONO # 0.8 103/ul Normal 0.3-0.8 [facility] Comment on above: Performed By: #### C BC #### [facility] [address] [place] [address] [address] Kanchan Valencia Monocytes/100 WBC (Bld) 10.3 % Normal 1.7-12.0 [facility] Comment on above: Performed By: #### C BC #### [facility] [address] [place] [address] [address] Kanchan Valencia NEUT # 4.3 103/ul Normal 1.4-6.5 [facility] Comment on above: Performed By: #### C BC #### [facility] [address] [place] [address] [address] Kanchan Valencia Neutrophils/100 WBC (Bld) 59.3 % Normal 43.0-75.0 [facility] Comment on above: Performed By: #### C BC #### [facility] [address] [place] [address] [address] Kanchan Valencia Platelet mean volume (Bld) [Entitic vol] 9.2 fL Critically low 9.5-13.5 [facility] Comment on above: Performed By: #### C BC #### [facility] [address] [place] [address] [address] Kanchan Valencia PLT 300 103/ul Normal 150-450 [facility] Comment on above: Performed By: #### C BC #### [facility] [address] [place] [address] [address] Kanchan Valencia RBC 5.24 106/ul Normal 4.20-5.40 [facility] Comment on above: Performed By: #### C BC #### [facility] [address] [place] [address] [address] Kanchan Valencia WBC 7.3 103/ul Normal 4.0-11.0 [facility] Comment on above: Performed By: #### C BC #### [facility] [address] [place] [address] [address] Kanchan Valencia LIPID PROFILEon 07-23-2022 CHOL-HDL RATIO NORM SEE BELOW Normal [facility] Comment on above: Result Comment: 3.3 - 4.4 LOW RISK 4.4 - 7.1 AVERAGE RISK 7.1 - 11.0 MODERATE RISK >11.0 HIGH RISK Performed By: #### L IPID, TSH, CMP #### [facility] [address] [address] [address] Kanchan Valencia Cholesterol [Mass/Vol] 211 mg/dL Critically high <=200 [facility] Comment on above: Performed By: #### L IPID, TSH, CMP #### [facility] [address] [address] [address] Kanchan Valencia Cholesterol in HDL [Mass/Vol] 54 mg/dL Normal 40-60 [facility] Comment on above: Performed By: #### L IPID, TSH, CMP #### [facility] [address] [place] [address] Dr. Kanchan Valencia Cholesterol in LDL [Mass/Vol] 138.4 mg/dL Normal [facility] Comment on above: Performed By: #### L IPID, TSH, CMP #### [facility] [address] [address] [address] Kanchan Valencia Cholesterol.total/Chol esterol in HDL [Mass ratio] 3.9 {ratio} Normal [facility] Comment on above: Performed By: #### L IPID, TSH, CMP #### [facility] [address] [address] [address] Kanchan Valencia HDL NORMAL > or = 60 mg/dl - LO W CARDIOVASCULAR RISK <40 mg/dl - HIGH CARDIOVASCULAR RISK Normal [facility] Comment on above: Performed By: #### L IPID, TSH, CMP #### [facility] [address] [address] [address] Kanchan Valencia LDL CALC NORMAL SEE BELOW Normal [facility] Comment on above: Result Comment: <100 mg/dl OPTIMAL 100 - 129 mg/dl NEAR OR ABOVE OPTIMAL 130 - 159 mg/dl BORDERLINE HIGH 160 - 189 mg/dl HIGH >190 mg/dl VERY HIGH Performed By: #### L IPID, TSH, CMP #### [facility] [address] [address] [address] Kanchan Valencia Triglyceride [Mass/Vol] 93 mg/dL Normal <=150 [facility] Comment on above: Performed By: #### L IPID, TSH, CMP #### [facility] [address] [place] [address] Dr. Kanchan Valencia VLDL CALC 18.6 mg/dL Normal [facility] Comment on above: Performed By: #### L IPID, TSH, CMP #### [facility] [address] [place] [address] Dr. Kanchan Valencia PROF 14(COMP METB)on 023 Albumin [Mass/Vol] 4.1 g/dL Normal 3.4-5.0 [facility] Comment on above: Performed By: #### T SH, CMP, LIPID #### [facility] [address] [place] [address] Dr. Kanchan Valencia Albumin/Globulin [Mass ratio] 1.1 {ratio} Normal [facility] Comment on above: Performed By: #### T SH, CMP, LIPID #### [facility] [address] [place] [address] Dr. Kanchan Valencia ALP [Catalytic activity/Vol] 103 U/L Normal 46-116 [facility] Comment on above: Performed By: #### T SH, CMP, LIPID #### [facility] [address] [place] [address] Dr. Kanchan Valencia ALT [Catalytic activity/Vol] 40 U/L Normal 14-59 [facility] Comment on above: Performed By: #### T SH, CMP, LIPID #### [facility] [address] [place] [address] Dr. Kanchan Valencia Anion gap [Moles/Vol] 14.8 mmol/L Normal Th e [facility] Comment on above: Performed By: #### T SH, CMP, LIPID #### [facility] [address] [place] [address] Dr. Kanchan Valencia AST [Catalytic activity/Vol] 26 U/L Normal 15-37 [facility] Comment on above: Performed By: #### T SH, CMP, LIPID #### [facility] [address] [place] [address] Dr. Kanchan Valencia Bilirubin [Mass/Vol] 0.4 mg/dL Normal 0.2-1.0 [facility] Comment on above: Performed By: #### T SH, CMP, LIPID #### [facility] [address] [place] [address] Dr. Kanchan Valencia Calcium [Mass/Vol] 9.4 mg/dL Normal 8.5-10.1 [facility] Comment on above: Performed By: #### T SH, CMP, LIPID #### [facility] [address] [place] [address] Dr. Kanchan Valencia Chloride [Moles/Vol] 104 mmol/L Normal 98-107 [facility] Comment on above: Performed By: #### T SH, CMP, LIPID #### [facility] [address] [place] [address] Dr. Kanchan Valencia CO2 [Moles/Vol] 26.7 mmol/L Normal 21.0-32.0 [facility] Comment on above: Performed By: #### T SH, CMP, LIPID #### [facility] [address] [place] [address] Dr. Kanchan Valencia Creatinine [Mass/Vol] 0.67 mg/dL Normal 0.55-1.02 [facility] Comment on above: Performed By: #### T SH, CMP, LIPID #### [facility] [address] [place] [address] Dr. Kanchan Valencia EGFR-AF TUNISIAN >60 Normal >=60 [facility] Comment on above: Performed By: #### T SH, CMP, LIPID #### [facility] [address] [place], [place] [id number] Dr. Kanchan Valencia EGFR-NON AF TUNISIAN >60 Normal >=60 [facility] Comment on above: Performed By: #### T COURTNEY CMP, LIPID #### [facility] [address] [address] [address] Kanchan Valencia Globulin (S) [Mass/Vol] 3.8 g/dL Normal [facility] Comment on above: Performed By: #### T COURTNEY CMP, LIPID #### [facility] [address] [address] [address] Kanchan Valencia Glucose [Mass/Vol] 113 mg/dL Critically high 74-106 [facility] Comment on above: Performed By: #### T COURTNEY CMP, LIPID #### [facility] [address] [place] [address] Dr. Kanchan Valencia Potassium [Moles/Vol] 4.5 mmol/L Normal 3.5-5.1 [facility] Comment on above: Performed By: #### T COURTNEY CMP, LIPID #### [facility] [address] [place] [address] Dr. Kanchan Valencia Protein [Mass/Vol] 7.9 g/dL Normal 6.4-8.2 [facility] Comment on above: Performed By: #### T COURTNEY CMP, LIPID #### [facility] [address] [place] [address] Dr. Kanchan Valencia Sodium [Moles/Vol] 141 mmol/L Normal 136-145 [facility] Comment on above: Performed By: #### T COURTNEY CMP, LIPID #### [facility] [address] [place] [address] Dr. Kanchan Valencia Urea nitrogen [Mass/Vol] 14.0 mg/dL Normal 7.0-18.0 [facility] Comment on above: Performed By: #### T COURTNEY, CMP, LIPID #### [facility] [address] [place] [address] Dr. Kanchan Valencia Urea nitrogen/Creatinine [Mass ratio] 20.9 mg/mg Normal [facility] Comment on above: Performed By: #### T COURTNEY, CMP, LIPID #### [facility] [address] [place] [address] Dr. Kanchan Valencia SED RATE WESTERGRENon 2022 SED RATE 13 mm/hr Normal <=30 [facility] Comment on above: Performed By: #### S EDR #### [facility] [address] [place] [address] Dr. Kanchan Valencia TSHon 07-23-2022 TSH 3.595 uIU/mL Normal 0.358-3.74 0 [facility] Comment on above: Performed By: #### L IPID, TSH, CMP #### [facility] [address] [place] [address] Dr. Kanchan Valencia UA RANDOM W/MICROSCOPICon BACTERIA NONE SEEN Normal NONE SEEN [facility] Comment on above: Performed By: #### U AMIC #### [facility] [address] [place] [address] Dr. Kanchan Valencia Bilirubin Ql (U) Negative Normal NEGATIVE [facility] Comment on above: Performed By: #### U AMIC #### [facility] [address] [place] [address] Dr. Kanchan Valencia CAST NONE SEEN Normal NONE SEEN [facility] Comment on above: Performed By: #### U AMIC #### [facility] [address] [place] [address] Dr. Kanchan Valencia Clarity (U) CLEAR Normal CLEAR [facility] Comment on above: Performed By: #### U AMIC #### [facility] [address] [place] [address] Dr. Kanchan Valencia Color (U) LT. YELLOW Normal YELLOW [facility] Comment on above: Performed By: #### U AMIC #### [facility] [address] [place] [address] Dr. Kanchan Valencia Crystals LM Nom (Urine sed) NONE SEEN Normal NONE SEEN [facility] Comment on above: Performed By: #### U AMIC #### [facility] [address] [place] [address] Dr. Kanchan Valencia Epithelial cells LM Ql (Urine sed) FEW Abnormal NONE SEEN /RARE [facility] Comment on above: Performed By: #### U AMIC #### [facility] [address] [address] [address] Kanchan Valencia Glucose Ql (U) Negative Normal NEGATIVE [facility] Comment on above: Performed By: #### U AMIC #### [facility] [address] [address] [address] Kanchan Valencia Hemoglobin Ql (U) Negative Normal NEGATIVE [facility] Comment on above: Performed By: #### U AMIC #### [facility] [address] [address] [address] Kanchan Valecnia Ketones Ql (U) Negative Normal NEGATIVE [facility] Comment on above: Performed By: #### U AMIC #### [facility] [address] [place] [address] Dr. Kanchan Valencia LEUKOCYTES Negative Normal NEGATIVE [facility] Comment on above: Performed By: #### U AMIC #### [facility] [address] [address] [address] Kanchan Valencia MUCOUS NONE SEEN Normal NONE SEEN [facility] Comment on above: Performed By: #### U AMIC #### [facility] [address] [address] [address] Kanchan Valencia Nitrite Ql (U) Negative Normal NEGATIVE [facility] Comment on above: Performed By: #### U AMIC #### [facility] [address] [address] [address] Kanchan Valencia pH (U) 6.5 [pH] Normal 5-9 [facility] Comment on above: Performed By: #### U AMIC #### [facility] [address] [address] [address] Kanchan Valencia RBC NONE SEEN Abnormal 0-2 [facility] Comment on above: Performed By: #### U AMIC #### [facility] [address] [address] [address] Kanchan Valencia SPEC GRAVITY <=1.005 Abnormal 1.005-<=1. 025 [facility] Comment on above: Performed By: #### U AMIC #### [facility] [address] [address] [address] Kanchan Valencia UA PROTEIN Negative Normal NEGATIVE/ TRACE [facility] Comment on above: Performed By: #### U AMIC #### [facility] [address] [address] [address] Kanchan Valencia Urobilinogen Qn (U) 0.2 {Sarah'U}/dL Normal 0.2 - 1. 0 [facility] Comment on above: Performed By: #### U AMIC #### [facility] [address] [address] [address] Kanchan Valencia WBC NONE SEEN Normal NONE SEEN [facility] Comment on above: Performed By: #### U AMIC #### [facility] [address] [address] [address] Kanchan Valencia MG MAMM SCREEN 3D NICA CADon 11-30-2021 MG MAMM SCREEN 3D NICA CAD Patient: MADDISON RITTER Exam Date: 11/30/2021 : 1960 Gender:F Ordering : DR BRITTNEY FARRIS M.D. Admission #: [id number] Family : Order #: [id number] CLICK HERE TO VIEW EXAM RADIOLOGY REPORT PROCEDURE: MAMMOGRAM SCREENING 3D BILATERAL CAD COMPARISON: None. INDICATIONS: Screening mammography Calculator Name NCI Breast Cancer Risk Assessment Tool 5 Year Breast Cancer Risk 1.30% Lifetime Breast Cancer Risk 6.60% Personal Breast Cancer No Personal Ovarian Cancer No Treatments None Family Cancers None LOCATION: [facility] BREAST COMPOSITION: Scattered areas fibroglandular density. FINDINGS: DIAGNOSTIC CATEGORY 2--BENIGN FINDING: Scattered benign-appearing nodules are present. Scattered benign-appearing calcifications are present. Scattered benign-appearing lymph nodes are present. RIGHT BREAST: No significant suspicious finding. LEFT BREAST: No significant suspicious finding. RECOMMENDATIONS: ROUTINE MAMMOGRAM AND CLINICAL EVALUATION IN 12 MONTHS. PLEASE NOTE: A NORMAL MAMMOGRAM DOES NOT EXCLUDE THE POSSIBILITY OF BREAST CANCER. A CLINICALLY SUSPICIOUS PALPABLE LUMP SHOULD BE BIOPSIED. Dictated by: Rebecca Soria MD on 12/01/2021 at 07:48 Approved by: Rebecca Soria MD on 12/01/2021 at 07:49 Normal [facility] CBC AUTO DIFFon 11-02-2021 BASO # 0.0 103/ul Normal 0.0-0.1 [facility] Comment on above: Performed By: #### C BC #### [facility] [address] [place] [address] Dr. Kanchan Valencia Basophils/100 WBC (Bld) 0.5 % Normal 0.2-2.0 [facility] Comment on above: Performed By: #### C BC #### [facility] [address] [place] [address] Dr. Kanchan Valencia EO # 0.1 103/ul Normal 0.0-0.7 [facility] Comment on above: Performed By: #### C BC #### [facility] [address] [place] [address] Dr. Kanchan Valencia Eosinophils/100 WBC (Bld) 1.4 % Normal 0.9-7.0 [facility] Comment on above: Performed By: #### C BC #### [facility] [address] [place] [address] Dr. Kanchan Valencia Erythrocyte distribution width (RBC) [Ratio] 13.4 % Normal 11.0-15.0 [facility] Comment on above: Performed By: #### C BC #### [facility] [address] [place] [address] Dr. Kanchan Valencia Hematocrit (Bld) [Volume fraction] 43.9 % Normal 36.0-48.0 [facility] Comment on above: Performed By: #### C BC #### [facility] [address] [place] [address] Dr. Kanchan Valencia Hemoglobin (Bld) [Mass/Vol] 14.4 g/dL Normal 12.0-16.0 [facility] Comment on above: Performed By: #### C BC #### [facility] [address] [place] [address] Dr. Kanchan Valencia IG # 0.01 10e3/ul Normal 0.00-0.03 [facility] Comment on above: Performed By: #### C BC #### [facility] [address] [place] [address] Dr. Kanchan Valencia IG % 0.1 % Normal 0.0-0.5 [facility] Comment on above: Performed By: #### C BC #### [facility] [address] [place] [address] Dr. Kanchan Valencia LYMPH # 2.4 103/ul Normal 1.2-3.8 [facility] Comment on above: Performed By: #### C BC #### [facility] [address] [place] [address] Dr. Kanchan Valencia Lymphocytes/100 WBC (Bld) 30.6 % Normal 20.5-60.0 [facility] Comment on above: Performed By: #### C BC #### [facility] [address] [place] [address] Dr. Kanchan Valencia MANUAL DIFF REQ NO Normal [facility] Comment on above: Performed By: #### C BC #### [facility] [address] [place] [address] Dr. Kanchan Valencia MCH (RBC) [Entitic mass] 28.8 pg Normal 26.7-34.0 [facility] Comment on above: Performed By: #### C BC #### [facility] [address] [place] [address] Dr. Kanchan Valencia MCHC (RBC) [Mass/Vol] 32.8 g/dL Normal 29.9-35.2 [facility] Comment on above: Performed By: #### C BC #### [facility] [address] [place] [address] Dr. Kanchan Valencia MCV (RBC) [Entitic vol] 87.8 fL Normal 81.0-99.0 [facility] Comment on above: Performed By: #### C BC #### [facility] [address] [place] [address] Dr. Kanchan Valencia MONO # 1.3 103/ul Critically high 0.3-0.8 [facility] Comment on above: Performed By: #### C BC #### [facility] [address] [place] [address] Dr. Kanchan Valencia Monocytes/100 WBC (Bld) 16.5 % Critically high 1.7-12.0 [facility] Comment on above: Performed By: #### C BC #### [facility] [address] [place] [address] Dr. Kanchan Valencia NEUT # 4.1 103/ul Normal 1.4-6.5 [facility] Comment on above: Performed By: #### C BC #### [facility] [address] [address] [address] Kanchan Valencia Neutrophils/100 WBC (Bld) 50.9 % Normal 43.0-75.0 [facility] Comment on above: Performed By: #### C BC #### [facility] [address] [place] [address] Dr. Kanchan Valencia Platelet mean volume (Bld) [Entitic vol] 9.8 fL Normal 9.5-13.5 [facility] Comment on above: Performed By: #### C BC #### [facility] [address] [place] [address] Dr. Kanchan Valencia PLT 279 103/ul Normal 150-450 [facility] Comment on above: Performed By: #### C BC #### [facility] [address] [place] [address] Dr. Kanchan Valnecia RBC 5.00 106/ul Normal 4.20-5.40 [facility] Comment on above: Performed By: #### C BC #### [facility] [address] [place] [address] Dr. Kanchan Valencia WBC 8.0 103/ul Normal 4.0-11.0 [facility] Comment on above: Performed By: #### C BC #### [facility] [address] [place] [address] Dr. Kanchan Valencia LIPID PROFILEon 11-02-2021 CHOL-HDL RATIO NORM SEE BELOW Normal [facility] Comment on above: Result Comment: 3.3 - 4.4 LOW RISK 4.4 - 7.1 AVERAGE RISK 7.1 - 11.0 MODERATE RISK >11.0 HIGH RISK Performed By: #### L IPID, TSH, CMP #### [facility] [address] [place] [address] Dr. Kanchan Valencia Cholesterol [Mass/Vol] 204 mg/dL Critically high <=200 [facility] Comment on above: Performed By: #### L IPID, TSH, CMP #### [facility] [address] [address] [address] Kanchan Valencia Cholesterol in HDL [Mass/Vol] 51 mg/dL Normal 40-60 [facility] Comment on above: Performed By: #### L IPID, TSH, CMP #### [facility] [address] [address] [address] Kanchan Valencia Cholesterol in LDL [Mass/Vol] 130.4 mg/dL Normal [facility] Comment on above: Performed By: #### L IPID, TSH, CMP #### [facility] [address] [address] [address] Kanchan Valencia Cholesterol.total/Chol esterol in HDL [Mass ratio] 4.0 {ratio} Normal [facility] Comment on above: Performed By: #### L IPID, TSH, CMP #### [facility] [address] [address] [address] Kanchan Valencia HDL NORMAL > or = 60 mg/dl - LO W CARDIOVASCULAR RISK <40 mg/dl - HIGH CARDIOVASCULAR RISK Normal [facility] Comment on above: Performed By: #### L IPID, TSH, CMP #### [facility] [address] [address] [address] Kanchan Valencia LDL CALC NORMAL SEE BELOW Normal [facility] Comment on above: Result Comment: <100 mg/dl OPTIMAL 100 - 129 mg/dl NEAR OR ABOVE OPTIMAL 130 - 159 mg/dl BORDERLINE HIGH 160 - 189 mg/dl HIGH >190 mg/dl VERY HIGH Performed By: #### L IPID, TSH, CMP #### [facility] [address] [address] [address] Kanchan Valencia Triglyceride [Mass/Vol] 113 mg/dL Normal <=150 [facility] Comment on above: Performed By: #### L IPID, TSH, CMP #### [facility] [address] [address] [address] Kanchan Valencia VLDL CALC 22.6 mg/dL Normal [facility] Comment on above: Performed By: #### L IPID, TSH, CMP #### [facility] [address] [address] [address] Kanchan Valencia PROF 14(COMP METB)on 022 Albumin [Mass/Vol] 3.7 g/dL Normal 3.4-5.0 [facility] Comment on above: Performed By: #### L IPID, TSH, CMP #### [facility] [address] [address] [address] Kanchan Valencia Albumin/Globulin [Mass ratio] 1.0 {ratio} Normal [facility] Comment on above: Performed By: #### L IPID, TSH, CMP #### [facility] [address] [place] [address] Dr. Kanchan Valencia ALP [Catalytic activity/Vol] 101 U/L Normal 46-116 [facility] Comment on above: Performed By: #### L IPID, TSH, CMP #### [facility] [address] [address] [address] Kanchan Valencia ALT [Catalytic activity/Vol] 32 U/L Normal 14-59 [facility] Comment on above: Performed By: #### L IPID, TSH, CMP #### [facility] [address] [place] [address] Dr. Kanchan Valencia Anion gap [Moles/Vol] 15.4 mmol/L Normal [facility] Comment on above: Performed By: #### L IPID, TSH, CMP #### [facility] [address] [place] [address] Dr. Kanchan Valencia AST [Catalytic activity/Vol] 19 U/L Normal 15-37 [facility] Comment on above: Performed By: #### L IPID, TSH, CMP #### [facility] [address] [place] [address] Dr. Kanchan Valencia Bilirubin [Mass/Vol] 0.4 mg/dL Normal 0.2-1.0 [facility] Comment on above: Performed By: #### L IPID, TSH, CMP #### [facility] [address] [address] [address] Kanchan Valencia Calcium [Mass/Vol] 9.2 mg/dL Normal 8.5-10.1 [facility] Comment on above: Performed By: #### L IPID, TSH, CMP #### [facility] [address] [place] [address] Dr. Kanchan Valencia Chloride [Moles/Vol] 103 mmol/L Normal 98-107 [facility] Comment on above: Performed By: #### L IPID, TSH, CMP #### [facility] [address] [place] [address] Dr. Kanchan Valencia CO2 [Moles/Vol] 23.8 mmol/L Normal 21.0-32.0 [facility] Comment on above: Performed By: #### L IPID, TSH, CMP #### [facility] [address] [place] [address] Dr. Kanchan Valencia Creatinine [Mass/Vol] 0.72 mg/dL Normal 0.55-1.02 [facility] Comment on above: Performed By: #### L IPID, TSH, CMP #### [facility] [address] [place] [address] Dr. Kanchan Valencia EGFR-AF TUNISIAN >60 Normal >=60 [facility] Comment on above: Performed By: #### L IPID, TSH, CMP #### [facility] [address] [place] [address] Dr. Kanchan Valencia EGFR-NON AF TUNISIAN >60 Normal >=60 [facility] Comment on above: Performed By: #### L IPID, TSH, CMP #### [facility] [address] [place] [address] Dr. Kanchan Valencia Globulin (S) [Mass/Vol] 3.7 g/dL Normal [facility] Comment on above: Performed By: #### L IPID, TSH, CMP #### [facility] [address] [place] [address] Dr. Kanchan Valencia Glucose [Mass/Vol] 104 mg/dL Normal 74-106 [facility] Comment on above: Performed By: #### L IPID, TSH, CMP #### [facility] [address] [place] [address] Dr. Kanchan Valencia Potassium [Moles/Vol] 4.2 mmol/L Normal 3.5-5.1 [facility] Comment on above: Performed By: #### L IPID, TSH, CMP #### [facility] [address] [place] [address] Dr. Kanchan Valencia Protein [Mass/Vol] 7.4 g/dL Normal 6.4-8.2 [facility] Comment on above: Performed By: #### L IPID, TSH, CMP #### [facility] [address] [place] [address] Dr. Kanchan Valencia Sodium [Moles/Vol] 138 mmol/L Normal 136-145 [facility] Comment on above: Performed By: #### L IPID, TSH, CMP #### [facility] [address] [place] [address] Dr. Kanchan Valencia Urea nitrogen [Mass/Vol] 13.0 mg/dL Normal 7.0-18.0 [facility] Comment on above: Performed By: #### L IPID, TSH, CMP #### [facility] [address] [place] [address] Dr. Kanchan Valencia Urea nitrogen/Creatinine [Mass ratio] 18.1 mg/mg Normal [facility] Comment on above: Performed By: #### L IPID, TSH, CMP #### [facility] [address] [place] [address] Dr. Kanchan Valencia TSHon 11-02-2021 TSH 2.474 uIU/mL Normal 0.358-3.74 0 [facility] Comment on above: Performed By: #### L IPID, TSH, CMP #### [facility] [address] [place] [address] Dr. Kanchan Valencia TSH RANGE SEE BELOW Normal [facility] Comment on above: Result Comment: <0.3 4 UIU/ml HYPERTHYROID 0.34-5.60 UIU/ml EUTHYROID >5.60 UIU/ml HYPOTHYROID Performed By: #### L IPID, TSH, CMP #### [facility] [address] [address] [address] Kanchan Valencia Vital Signs Date Time Vital Sign Value Performing Clinician Facility 01-23-2024 11:58-0400 Body height 170.18 cm DO Parviz Ball Work Phone: [facility] 01-23-2024 11:58-0400 Body mass index (BMI) [Ratio] 31.8 kg/m2 DO Parviz Ball Work Phone: [facility] 01-23-2024 11:58-0400 Body weight 92.24 kg DO Parviz Ball Work Phone: [facility] 01-23-2024 11:58-0400 Diastolic blood pressure 95 mm[Hg] DO Parviz Ball Work Phone: [facility] 01-23-2024 11:58-0400 Heart rate 91 /min DO Parviz Ball Work Phone: [facility] 01-23-2024 11:58-0400 Respiratory rate 12 /min DO Aprviz Ball Work Phone: [facility] 01-23-2024 11:58-0400 Systolic blood pressure 151 mm[Hg] DO Parviz Ball Work Phone: [facility] 10-09-2023 15:25-0400 Diastolic blood pressure 90 mm[Hg] [facility] 10-09-2023 15:25-0400 Heart rate 91 /min [facility] 10-09-2023 15:25-0400 Respiratory rate 16 /min [facility] 10-09-2023 15:25-0400 SaO2% (BldA) [Mass fraction] 97 % [facility] 10-09-2023 15:25-0400 Systolic blood pressure 159 mm[Hg] [facility] 10-09-2023 13:17-0400 Body temperature 98.4 [degF] [facility] 10-09-2023 12:32-0400 Inhaled oxygen flow rate 8 L/min [facility] 10-09-2023 09:38-0400 Body height 160.02 cm [facility] 10-09-2023 09:38-0400 Body mass index (BMI) [Ratio] 36.6 kg/m2 [facility] 10-09-2023 09:38-0400 Body weight 93.8 kg [facility] 09-29-2023 12:00-0400 Body height 162.56 cm [facility] 09-29-2023 12:00-0400 Body mass index (BMI) [Ratio] 35 kg/m2 [facility] 09-29-2023 12:00-0400 Body weight 92.58 kg [facility] 09-29-2023 12:00-0400 Diastolic blood pressure 96 mm[Hg] [facility] 09-29-2023 12:00-0400 Heart rate 87 /min [facility] 09-29-2023 12:00-0400 Respiratory rate 12 /min [facility] 09-29-2023 12:00-0400 Systolic blood pressure 161 mm[Hg] [facility] 09-06-2023 11:32-0400 Body height 162.56 cm [facility] 09-06-2023 11:32-0400 Body mass index (BMI) [Ratio] 34.9 kg/m2 [facility] 09-06-2023 11:32-0400 Body weight 92.24 kg [facility] 09-06-2023 11:32-0400 Diastolic blood pressure 89 mm[Hg] [facility] 09-06-2023 11:32-0400 Respiratory rate 16 /min [facility] 09-06-2023 11:32-0400 Systolic blood pressure 150 mm[Hg] [facility] 08-24-2023 12:17-0500 Body height 162.56 cm [facility] 08-24-2023 12:17-0500 Body mass index (BMI) [Ratio] 34.7 kg/m2 [facility] 08-24-2023 12:17-0500 Body weight 91.62 kg [facility] 08-24-2023 10:20-0500 Body height 162.56 cm DO Parviz Ball Work Phone: [facility] 08-24-2023 10:20-0500 Body temperature 98.4 [degF] DO Parviz Ball Work Phone: [facility] 08-24-2023 10:20-0500 Body weight 92 kg DO Parviz Ball Work Phone: [facility] 08-24-2023 10:20-0500 Diastolic blood pressure 99 mm[Hg] DO Parviz Ball Work Phone: [facility] 08-24-2023 10:20-0500 Heart rate 86 /min DO Parviz Ball Work Phone: [facility] 08-24-2023 10:20-0500 Respiratory rate 16 /min DO Parviz Ball Work Phone: [facility] 08-24-2023 10:20-0500 SaO2% (BldA) [Mass fraction] 97 % DO Parviz Ball Work Phone: [facility] 08-24-2023 10:20-0500 Systolic blood pressure 161 mm[Hg] DO Parviz Ball Work Phone: [facility] 08-18-2023 09:32-0500 Body height 162.56 cm [facility] 08-18-2023 09:32-0500 Body mass index (BMI) [Ratio] 34.7 kg/m2 [facility] 08-18-2023 09:32-0500 Body weight 91.73 kg [facility] 08-18-2023 09:32-0500 Diastolic blood pressure 92 mm[Hg] [facility] 08-18-2023 09:32-0500 Heart rate 94 /min [facility] 08-18-2023 09:32-0500 Respiratory rate 12 /min [facility] 08-18-2023 09:32-0500 Systolic blood pressure 142 mm[Hg] [facility] 07-31-2023 14:00-0500 Body height 162.56 cm Parviz Ball Other [facility] Other 07-31-2023 14:00-0500 Body mass index (BMI) [Ratio] 34.91 kg/m2 Parviz Ball Other [facility] Other 07-31-2023 14:00-0500 Body weight 92.26 kg Parviz Ball Other [facility] Other 07-31-2023 14:00-0500 Diastolic blood pressure 78 mm[Hg] Parviz Ball Other [facility] Other 07-31-2023 14:00-0500 Respiratory rate 12 /min Parviz Ball Other [facility] Other 07-31-2023 14:00-0500 Systolic blood pressure 137 mm[Hg] Parviz Ball Other [facility] Other 05-11-2023 14:45-0500 Body height 162.56 cm Kirstin Garza II Other [facility] Other 05-11-2023 14:45-0500 Body mass index (BMI) [Ratio] 34.33 kg/m2 Kirstin Garza II Other [facility] Other 05-11-2023 14:45-0500 Body weight 90.72 kg Kirstin Garza II Other [facility] Other 01-26-2023 11:15-0400 Body height 162.56 cm Parviz Ball Other [facility] Other 01-26-2023 11:15-0400 Body mass index (BMI) [Ratio] 34.7 kg/m2 Parviz Ball Other [facility] Other 01-26-2023 11:15-0400 Body weight 91.72 kg Parviz Ball Other [facility] Other 01-26-2023 11:15-0400 Diastolic blood pressure 95 mm[Hg] Parviz Ball Other [facility] Other 01-26-2023 11:15-0400 Respiratory rate 12 /min Parviz Ball Other [facility] Other 01-26-2023 11:15-0400 Systolic blood pressure 163 mm[Hg] Parviz Ball Other [facility] Other 12-29-2022 09:00-0400 Body height 162.56 cm Kirstin Guerraisle II Other [facility] Other 12-29-2022 09:00-0400 Body mass index (BMI) [Ratio] 35.36 kg/m2 Kirstin Leila II Other [facility] Other 12-29-2022 09:00-0400 Body weight 93.44 kg Kirstin Leila II Other [facility] Other Encounters Encounter Date Encounter Type Care Provider Facility Start: 01-23-2024 End: 01-23-2024 ambulatory DO Parviz Ball Work Phone: [facility] Work Phone: Start: 01-23-2024 End: 01-23-2024 Patient encounter procedure DO Parviz Ball Work Phone: [facility] Work Phone: Start: 01-04-2024 End: 01-04-2024 ambulatory DO Parviz Ball Work Phone: [facility] Work Phone: Start: 01-04-2024 End: 01-04-2024 Patient encounter procedure DO Parviz Ball Work Phone: [facility] Work Phone: Start: 01-04-2024 End: 01-04-2024 Patient encounter procedure DO Parviz Ball Work Phone: [facility] Start: 01-04-2024 End: 01-04-2024 ambulatory DO Parviz Ball Work Phone: [facility] Work Phone: Start: 12-29-2023 End: 12-29-2023 ambulatory CINDY GONZALES Not Available Start: 12-25-2023 End: 12-25-2023 ambulatory CINDY GONZALES Not Available Start: 12-21-2023 End: 12-21-2023 ambulatory CINDY GONZALES Not Available Start: 12-13-2023 End: 12-13-2023 ambulatory DO Parviz Ball Work Phone: [facility] Work Phone: Start: 12-13-2023 End: 12-13-2023 Patient encounter procedure DO Parviz Ball Work Phone: [facility] Work Phone: Start: 12-05-2023 End: 12-05-2023 ambulatory CINDY GONZALES Not Available Start: 11-30-2023 End: 11-30-2023 ambulatory CINDY GONZALES Not Available Start: 11-28-2023 End: 11-28-2023 ambulatory CINDY GONZALES Not Available Start: 11-23-2023 End: 11-23-2023 ambulatory CINDY GONZALES Not Available Start: 11-22-2023 End: 11-22-2023 ambulatory DO Parviz Ball Work Phone: [facility] Work Phone: Start: 11-22-2023 End: 11-22-2023 Patient encounter procedure DO Parviz Ball Work Phone: [facility] Work Phone: Start: 11-21-2023 End: 11-21-2023 ambulatory CINDY GONZALES Not Available Start: 11-16-2023 End: 11-16-2023 ambulatory CINDY ROLON Not Available Start: 11-13-2023 End: 11-13-2023 ambulatory CINDY ROLON Not Available Start: 11-10-2023 End: 11-10-2023 ambulatory CINDY ROLON Not Available Start: 11-08-2023 End: 11-08-2023 ambulatory CINDY ROLON Not Available Start: 11-02-2023 End: 11-02-2023 ambulatory CINDY ROLON Not Available Start: 10-31-2023 End: 10-31-2023 ambulatory JOJO ALEXANDRA Not Available Start: 10-27-2023 End: 10-27-2023 ambulatory AMARILIS YI Not Available Start: 10-25-2023 End: 10-25-2023 Patient encounter procedure DO Parviz Hanley Work Phone: [facility] Work Phone: Start: 10-19-2023 Non-patient / Non-visit DO Fernando Hanley Work Phone: [facility] [place] Work Phone: Start: 10-09-2023 End: 10-09-2023 Admission to same day surgery center [facility] [place] Start: 10-09-2023 End: 10-09-2023 ambulatory NON STAFF [facility] Work Phone: Start: 10-09-2023 Non-patient / Non-visit [facility] Work Phone: Start: 09-29-2023 End: 09-29-2023 ambulatory NON STAFF [facility] Work Phone: Start: 09-29-2023 End: 09-29-2023 Patient encounter procedure [facility] Work Phone: Start: 09-29-2023 End: 09-29-2023 ambulatory NON STAFF [facility] Work Phone: Start: 09-29-2023 End: 09-29-2023 Patient encounter procedure [facility] Work Phone: Start: 09-27-2023 End: 09-27-2023 Patient encounter procedure [facility] Work Phone: Start: 09-27-2023 End: 09-27-2023 ambulatory NON STAFF [facility] Work Phone: Start: 09-27-2023 Encounter for preprocedural laboratory examination Kirstin Dee II [facility] Start: 09-27-2023 End: 09-27-2023 ambulatory NON STAFF [facility] Work Phone: Start: 09-27-2023 End: 09-27-2023 Patient encounter procedure [facility] Work Phone: Start: 09-06-2023 End: 09-06-2023 Patient encounter procedure [facility] Work Phone: Start: 09-04-2023 End: 09-04-2023 ambulatory DO Parviz Ball Work Phone: [facility] Work Phone: Start: 09-04-2023 End: 09-04-2023 Departed Referred DO Parviz Ball Work Phone: [facility] [place] Start: 08-25-2023 End: 08-25-2023 Patient encounter procedure [facility] Work Phone: Start: 08-24-2023 Registered [facility] [place] Start: 08-24-2023 End: 08-24-2023 ambulatory Kirstin Dee II Facility:[facility] Start: 08-24-2023 End: 08-24-2023 Patient encounter procedure [facility] Work Phone: Start: 08-24-2023 End: 08-24-2023 Patient encounter procedure [facility] Work Phone: Start: 08-24-2023 End: 08-24-2023 ambulatory Kirstin M Leila II Facility:[facility] Start: 08-18-2023 End: 08-18-2023 ambulatory NON STAFF [facility] Work Phone: Start: 08-18-2023 End: 08-18-2023 Patient encounter procedure [facility] Work Phone: Start: 08-04-2023 End: 08-04-2023 ambulatory Parviz Hanley Other [facility] Other Start: 08-04-2023 Telephone encounter Parviz Han[facility] Start: 08-01-2023 End: 08-01-2023 ambulatory Parviz Hanley Other [facility] Other Start: 08-01-2023 Telephone encounter Parviz Hanley [facility] Start: 07-31-2023 End: 07-31-2023 ambulatory Parviz Hanley Other [facility] Other Start: 07-31-2023 Encounter for other preprocedural examination Parviz Hanley [facility] Start: 07-31-2023 Office outpatient vi sit 25 minutes Parviz Hanley [facility] Start: 07-31-2023 Telephone encounter Parviz Hanley [facility] Start: 07-27-2023 End: 07-27-2023 ambulatory Kirstin Pichardole II Facility:[facility] Start: 07-27-2023 Registered Recurring Fi [facility] [place] Start: 07-27-2023 End: 07-27-2023 Patient encounter procedure [facility] Start: 07-27-2023 End: 07-27-2023 ambulatory NON STAFF [facility] Work Phone: Start: 07-20-2023 End: 07-20-2023 ambulatory Kirstin Pichardole II Other [facility] Other Start: 07-20-2023 Office outpatient vi sit 40 minutes Kirstin Leila II [facility] Start: 05-11-2023 End: 05-11-2023 Patient encounter procedure [facility] Start: 05-11-2023 End: 05-11-2023 ambulatory NON STAFF [facility] Other Start: 05-11-2023 Office outpatient vi sit 25 minutes Kirstin Garza II [facility] Start: 05-11-2023 End: 05-11-2023 Patient encounter procedure [facility] Work Phone: Start: 01-31-2023 End: 01-31-2023 ambulatory Parviz Hanley Other [facility] Other Start: 01-31-2023 Telephone encounter Parviz MCCOY [facility] Start: 01-26-2023 End: 01-26-2023 ambulatory Parviz Hanley Other [facility] Other Start: 01-26-2023 Patient encounter procedure Parviz Hanley [facility] Start: 12-29-2022 End: 12-29-2022 ambulatory Kirstin Garza II Other [facility] Other Start: 12-29-2022 Office outpatient ne w 45 minutes Kirstin Leila II [facility] Start: 12-19-2022 End: 12-19-2022 ambulatory Parviz Hanley Other [facility] Other Start: 12-19-2022 Telephone encounter Parviz MCCOY [facility] Start: 07-26-2022 Encounter for genera l adult medical examination without abnormal findings DR PARVIZ HANLEY [facility] Start: 07-23-2022 End: 07-24-[address] BRITTNEY FARRIS Facility:[facility] Start: 07-23-2022 End: 07-24-2022 Encounter for general adult medical examination without abnormal findings DR BRITTNEY FARRIS Facility:[facility] Start: 05-20-2022 Adult health examination Rickey Hanley Other [place] [employer] Other Start: 11-30-2021 End: 12-01-[address] BRITTNEY FARRIS Facility:[facility] Start: 11-02-2021 End: 11-03-[address] BRITTNEY FARRIS Facility:[facility] Procedures Date Procedure Procedure Detail Performing Clinician Start: 01-04-2024 Plain X-ray of right femur DO Parviz Ball Work Phone: Start: 01-04-2024 Plain X-ray of right tibia and right fibula DO Parviz Ball Work Phone: Start: 01-04-2024 X-ray of right knee DO Parviz Ball Work Phone: Start: 11-22-2023 X-ray of right knee MD Kirstin Dee II Work Phone: Start: 10-09-2023 X-ray of right knee Start: 10-09-2023 Total replacement of right knee joint Start: 09-27-2023 Antibody screen Kirstin Dee II Comment on above: Order Comment: Reaso n for Exam Primary osteoarthritis of right knee;Age-related osteoporosi Result Comment: PERF ORMED BY: [address] [id number] PATHOLOGIST RESERVE OFFICER ULYSSES BAIN M.D. Start: 08-24-2023 Antibody screen Kirstin Dee II Comment on above: Order Comment: Reaso n for Exam Primary osteoarthritis of right knee;Age-related osteoporosi Result Comment: PERF ORMED BY: [facility] [address] [place] [address] PATHOLOGIST RESERVE OFFICER ULYSSES BAIN M.D. Start: 08-24-2023 Plain X-ray of right femur Start: 08-24-2023 Plain X-ray of right tibia and right fibula Start: 07-27-2023 Methicillin resistan t Staphylococcus aureus culture Start: 05-11-2023 X-ray of lumbar spin e, four views Screening for malign ant neoplasm of breast Parviz Ball Other Plan of Treatment Date Care Activity Detail Author Start: 01-04-2024 Plain X-ray of right femur XR femur RT 2V* [facility] Start: 01-04-2024 Plain X-ray of right tibia and right fibula XR tibia fibula RT 2V* [facility] Start: 01-04-2024 X-ray of right knee XR knee RT 2V [facility] Start: 01-04-2024 XR Femur - right 2 Views [facility] Start: 01-04-2024 XR Knee - right 2 Views [facility] Start: 01-04-2024 XR Tibia and Fibula - right 2 Views [facility] Start: 11-22-2023 X-ray of right knee XR knee RT 3V - NOT FOR ER USE [facility] Start: 11-22-2023 XR Knee - right 3 Views [facility] Start: 10-09-2023 Hospital admission [facility] Start: 10-09-2023 [facility] Start: 10-09-2023 [facility] Start: 09-27-2023 [facility] Start: 09-04-2023 Total replacement of right knee joint OR Knee Arthroplasty Partial (Right) [facility] Start: 07-27-2023 MRSA Culture MRSA Culture [facility] Comprehensive metabo lic 2000 panel - Serum or Plasma [facility] Cotinine [Mass/volum e] in Serum or Plasma [facility] Glucose measurement estimated from glycated hemoglobin [facility] Methicillin resistan t Staphylococcus aureus [Presence] in Unspecified specimen by Organism specific culture [facility] Nicotine [Mass/volum e] in Serum or Plasma [facility] Immunizations Immunization Date Immunization Notes Care Provider Fa nora 05-07-2022 influenza virus vaccine, split virus (incl. purified surface antigen) Parviz Hanley Other [facility] Other 05-07-2022 influenza virus vaccine, unspecified formulation [facility] 04-10-2021 COVID-19 mRNA, Comirnaty (Pfizer) [facility] 09-29-2020 COVID-19 Vaccine Pfi zer - Documentation Purposes Only Parviz Hanley Other [facility] 09-08-2020 COVID-19 mRNA, Comirnaty (Pfizer) [facility] 04-13-2020 influenza virus vaccine, split virus (incl. purified surface antigen) Parviz Hanley Other [facility] Other 04-13-2020 influenza virus vaccine, unspecified formulation [facility] 06-02-2016 diphtheria, tetanus toxoids and acellular pertussis vaccine, unspecified formulation Parviz Hanley Other [facility] Payers Date Payer Category Payer Self-pay 1960 Unknown [id number] 2.16.84 0.1.163968.3.579.2.593 1960 Unknown [id number] 2.16.84 0.1.426872.3.579.2.593 1960 Unknown [id number] 2.16.84 0.1.246535.3.579.2.593 1961 Unknown [id number] 2.16.84 0.1.240204.3.579.2.1259 1961 Unknown [id number] 2.16.84 0.1.788875.3.579.2.1259 1961 Unknown [id number] 2.16.84 0.1.847536.3.579.2.1259 1961 Unknown [id number] 2.16.84 0.1.090381.3.579.2.1259 1961 Unknown [id number] 2.16.84 0.1.991270.3.579.2.1259 1961 Unknown [id number] 2.16.84 0.1.513776.3.579.2.1259 1961 Unknown [id number] 2.16.84 0.1.701885.3.579.2.1259 1961 Unknown [id number] 2.16.84 0.1.224333.3.579.2.1258 1961 Unknown [id number] 2.16.84 0.1.231856.3.579.2.1258 1961 Unknown [id number] 2.16.84 0.1.945950.3.579.2.1258 1961 Unknown [id number] 2.16.84 0.1.373658.3.579.2.1258 1961 Unknown [id number] 2.16.84 0.1.403663.3.579.2.1258 1961 Unknown [id number] 2.16.84 0.1.127572.3.579.2.1258 1961 Unknown [id number] 2.16.84 0.1.080393.3.579.2.1258 1961 Unknown [id number] 2.16.84 0.1.506891.3.579.2.1258 1959 Unknown [id number] Unknown [id number] 2.16.8 40.1.399674.3.579.2.531 Unknown [id number] 2.16.8 40.1.140376.3.579.2.531 Unknown [id number] 2.16.8 40.1.934535.3.579.2.531 Unknown [id number] 2.16.8 40.1.295543.3.579.2.531 Unknown [id number] 2.16.8 40.1.926734.3.579.2.531 Unknown [id number] 2.16.8 40.1.925835.3.579.2.531 Unknown [id number] 2.16.8 40.1.149673.3.579.2.531 Unknown [id number] 2.16.8 40.1.319135.3.579.2.531 Unknown [id number] 2.16.8 40.1.367772.3.579.2.531 Unknown [id number] 2.16.8 40.1.272391.3.579.2.531 Unknown [id number] 2.16.8 40.1.450983.3.579.2.531 Social History Date Type Detail Facility Unknown if ever smoked [facility] Other Sex Assigned At Sex Assigned At [facility] Other Start: 1960 Sex Assigned At Female [facility] Start: 07-26-2023 End: 10-09-2023 Tobacco smoking status NHIS Never smoked tobacco (finding) [facility] NEGATED: Highlighted row [facility] Medical Equipment Procedure Code Equipment Code Equipment Origin al Text Equipment Identifier Dates Arthroplasty, knee, total, minimally invasive Uncoated unicondylar knee femur prosthesis [id number] FDA Start: 10-09-2023 Arthroplasty, knee, total, minimally invasive Uncoated unicondylar knee tibia prosthesis, metallic ()[id number] FDA Start: 10-09-2023 Arthroplasty, knee, total, minimally invasive Unicondylar knee insert [id number] FDA Start: 10-09-2023 Arthroplasty, knee, total, minimally invasive Orthopaedic cement, non-medicated [id number] FDA Start: 10-09-2023 Goals Date Patient Goal Desired Activity /State Clinical Notes 12-29-2022 to 08-04-2023 Note Date & Type Note Facility 08-04-2023 Evaluation note Encounter Date Diagnosis Assessment Notes Jul, Primary hypertension (ICD-10 - I10) [facility] Other 02-06-2024 Evaluation note* Encounter Date Diagnosis Assessment Notes Treatment Notes Treatment Clinical Notes Jul, Primary hypertension (ICD-10 - I10) [facility] Other 02-05-2024 Evaluation note* Encounter Date Diagnosis Assessment Notes Treatment Notes Treatment Clinical Notes Jul, Preop exam for internal medicine (ICD-10 - Z01.818) Mrs. Ritter has been seen and examined for her preoperative evauation. I reviewed her medications and instructed her to avoid ASA, NSAIDs and fish oil beginning 7 days prior to surgery. Jul, Primary hypertension (ICD-10 - I10) Continue medication w/o interruption Jul, Primary osteoarthritis of right knee (ICD-10 - M17.11) Exhausted conservative treatment and is scheduled for right TKA. Jul, Other obesity due to excess calories (ICD-10 - E66.09) She was encouraged to reduce calories and as knee pain improves, increase activity. Stressed the beneficial impact, which weight loss will have on degenerative arthritis and TKA. Jul, Body mass index [BMI ] 34.0-34.9, adult (ICD-10 - Z68.34) [facility] Other 01-25-2024 Evaluation note* Encounter Date Diagnosis Assessment Notes Treatment Notes Treatment Clinical Notes Jun, Primary osteoarthritis of right knee (ICD-10 - M17.11) Jun, Acute pain of right knee (ICD-10 - M25.561) Jun, Lumbar back pain (ICD-10 - M54.50) Jun, Other In regards to h er right-sided sciatica, it sounds like she has done very well with physical therapy and I recommended that we reorder physical therapy so she can continue working with her team here in physical therapy since she is having such great results. In regards to her right knee, I did explain that radiographically she appears like she may be a good partial knee replacement candidate but given her history of a knee scope as well as a concern for having some sort of autoimmune/inflammat ory condition I would err on the side of caution and proceed with a total knee replacement. Patient voiced understanding and is in agreement with this plan. 1. Right TKA - DVT prophylaxis: Xarelto - Antibiotics: Ancef and Vanco - NSAID: Prednisone 10 mg x 10 days postop - Implants: Persona with stem - Disposition: Same-day discharge-she lives at home with her who would be able to help her in the postoperative period 2. Preop screening labs will be ordered including: - hemoglobin - serum albumin - 25-OH Vit D - HgbA1c - serum cotinine - MRSA nasal culture 3. Patient will obtain preop clearances including: -PCP 4. Once our office has reviewed the above labs and clearances, we will contact the patient to discuss surgery scheduling. Patient is in agreement with the above plan. 5. The risks involved with surgery and postoperative complications were discussed in relation to the patient's nonmodifiable risk factors including but not limited to the following: Inflammatory joint pain History of knee scope All questions were answered after discussing these increased risks. The patient voiced understanding of these increased risks and still wishes to proceed with surgery. 6. The risks involved with surgery and postoperative complications were discussed in relation to the patient's modifiable risk factors including but not limited to the following: None identified at this time All questions were answered after discussing these increased risks. The patient voiced understanding of these increased risks and still wishes to proceed with surgery. The patient has tried and failed all conservative treatment options to include: oral anti-inflammatories, intra-articular steroid injections, physical therapy, and assistive devices. We will move forward with the definitive treatment option and schedule the patient for the above mentioned procedure after we have reviewed screening labs and clearances. Patient understands abnormal screening labs or absent clearances could delay their surgery. This documentation is being amended on 07/24/23 due to an internal data corruption event that occurred on 07/20/23. This data corruption event was NOT the result of any breach, fraud, or malicious third libertarian actors and no personal patient information was compromised. [facility] Other 11-16-2023 Evaluation note* Encounter Date Diagnosis Assessment Notes Treatment Notes Treatment Clinical Notes Apr, Primary osteoarthritis of right knee (ICD-10 - M17.11) Apr, Acute pain of right knee (ICD-10 - M25.561) Apr, Lumbar back pain (ICD-10 - M54.50) Apr, Other In regards to t he right knee primary osteoarthritis I recommended another steroid injection today since she had good relief. After consent was obtained, the right knee was injected with 3cc Kenalog and 7cc bupivicaine using sterile technique. Patient tolerated the injection well. We also prescribed her Celebrex 100 mg to be taken twice daily for anti-inflammatory effects on the knee. In regards to her lumbar back pain and chronic sciatica on the left side we did get x-rays of her back that do show some L4 on L5 spondylolisthesis. At this point time we will get her into formal physical therapy and allow some without Celebrex to help calm down any nerve related pain. She is going to call our office in 6 weeks and if she is still having significant left-sided sciatica type pain then we will order an MRI of her lumbar spine without contrast to evaluate for nerve compression. [facility] Other 08-08-2023 Evaluation note* Encounter Date Diagnosis Assessment Notes Treatment Notes Treatment Clinical Notes Jan, Overactive bladder (ICD-10 - N32.81) [facility] Other 08-03-2023 Evaluation note* Encounter Date Diagnosis Assessment Notes Treatment Notes Treatment Clinical Notes Jan, Primary osteoarthritis, right hand (ICD-10 - M19.041) Soak in warm water and continue Motrin - trial of Meloxicam failed to improve symptoms over Motrin Ice, Voltaren Gel Jan, Primary osteoarthritis, left hand (ICD-10 - M19.042) Soak in warm water and continue Motrin - trial of Meloxicam failed to improve symptoms over Motrin Ice, Voltaren Gel Jan, Lumbar spondylosis (ICD-10 - M47.816) The patient is instructed to avoid bending, twisting or lifting. They are to use intermittent heat and ice as needed. They may schedule a massage or gentle manipulation. They may safely use Tylenol as needed. Jan, Muscle cramp, nocturnal (ICD-10 - R25.2) No laboratory abnormalities to explain cramping. Gentle stretching at HS Tylenol PM Hydrate Continue Mg Sep, Unilateral primary osteoarthritis, right knee (ICD-10 - M17.11) Quad exercises, ice/heat and Tylenol. Continue Motrin. Avoid squatting or kneeling f/u Orthopedics [facility] Other 07-06-2023 Evaluation note* Encounter Date Diagnosis Assessment Notes Treatment Notes Treatment Clinical Notes Dec, Acute pain of right knee (ICD-10 - M25.561) Dec, Primary osteoarthritis of right knee (ICD-10 - M17.11) Dec, Other 1. We had a kaleb g discussion with the patient today concerning their right knee osteoarthritis. The radiographs do show osteoarthritis of the knee. At this time the patient would like to avoid surgical intervention. We did discuss the risk and benefits of surgical versus nonoperative management. The patient would like to proceed with nonoperative management. We discussed that our options include injections, physical therapy, and the consistent use of anti-inflammatories. All 3 of these options, including their risks and benefits, were discussed at length with the patient. 2. Tylenol: Discussed taking Tylenol (acetaminophen). Recommended adjusting their dosing to 1000mg by mouth up to 3 times a day. 3. NSAIDs: Recommended continuing her gnis-npe-macgwhe anti-inflammatories and Voltaren gel 4. Physical therapy: Discussed formal physical therapy and home regimen. Patient preferred no PT at this time. 5. Injections: Discussed injections as a treatment option. After consent was obtained, the right knee was injected with 3cc Kenalog and 7cc bupivicaine using sterile technique. Patient tolerated the injection well. 6. Follow up 3 months [facility] Other Evaluation noteNo assessment information available [facility] Work Phone: Evaluation note* Diagnosis Onset Date Resolution Status Essential (primary) hypertension acute DANIELITO (generalized anxiety disorder) acute Primary osteoarthritis of right knee acute [facility] Work Phone: Evaluation note* Diagnosis Onset Date Resolution Status Essential (primary) hypertension acute DANIELITO (generalized anxiety disorder) acute Primary osteoarthritis of right knee acute Primary osteoarthritis of right knee acute Essential (primary) hypertension acute DANIELITO (generalized anxiety disorder) acute Obesity acute Primary osteoarthritis of right knee acute Preop exam for internal medicine noneactive Primary osteoarthritis of right knee acute [facility] Work Phone: Evaluation note* Diagnosis Onset Date Resolution Status Essential (primary) hypertension acute DANIELITO (generalized anxiety disorder) acute Primary osteoarthritis of right knee acute Primary osteoarthritis of right knee acute Essential (primary) hypertension acute DANIELITO (generalized anxiety disorder) acute Obesity acute Primary osteoarthritis of right knee acute Preop exam for internal medicine noneactive Primary osteoarthritis of right knee acute Essential (primary) hypertension acute External otitis acute DANIELITO (generalized anxiety disorder) acute HSV (herpes simplex virus) infection acute [facility] Work Phone: Evaluation note* Diagnosis Onset Date Resolution Status Essential (primary) hypertension acute DANIELITO (generalized anxiety disorder) acute Primary osteoarthritis of right knee acute Primary osteoarthritis of right knee acute Essential (primary) hypertension acute DANIELITO (generalized anxiety disorder) acute Obesity acute Primary osteoarthritis of right knee acute Preop exam for internal medicine noneactive Primary osteoarthritis of right knee acute Essential (primary) hypertension acute External otitis acute DANIELITO (generalized anxiety disorder) acute HSV (herpes simplex virus) infection acute Greater trochanteric bursitis acute Status post right partial knee replacement acute [facility] Work Phone: Evaluation note* Diagnosis Onset Date Resolution Status Primary osteoarthritis of right knee acute Essential (primary) hypertension acute DANIELITO (generalized anxiety disorder) acute Obesity acute Primary osteoarthritis of right knee acute Preop exam for internal medicine noneactive Primary osteoarthritis of right knee acute Essential (primary) hypertension acute External otitis acute DANIELITO (generalized anxiety disorder) acute HSV (herpes simplex virus) infection acute Greater trochanteric bursitis acute Status post right partial knee replacement acute Aftercare following right kn ee joint replacement surgery acute Status post total right knee replacement acute [facility] Work Phone: Evaluation note* Diagnosis Onset Date Resolution Status Essential (primary) hypertension acute DANIELITO (generalized anxiety disorder) acute Obesity acute Primary osteoarthritis of right knee acute Preop exam for internal medicine noneactive Primary osteoarthritis of right knee acute Essential (primary) hypertension acute External otitis acute DANIELITO (generalized anxiety disorder) acute HSV (herpes simplex virus) infection acute Greater trochanteric bursitis acute Status post right partial knee replacement acute Aftercare following right kn ee joint replacement surgery acute Status post total right knee replacement acute [facility] Work Phone: Evaluation note* Diagnosis Onset Date Resolution Status Primary osteoarthritis of right knee acute Essential (primary) hypertension acute External otitis acute DANIELITO (generalized anxiety disorder) acute HSV (herpes simplex virus) infection acute Greater trochanteric bursitis acute Status post right partial knee replacement acute Aftercare following right knee joint replacement surge ry acute Status post total right knee replacement acute Aftercare following right knee joint replacement surge ry acute Status post total right knee replacement acute [facility] Work Phone: Evaluation note* Diagnosis Onset Date Resolution Status Greater trochanteric bursitis acute Status post right partial knee replacement acute Aftercare following right knee joint replacement surge ry acute Status post total right knee replacement acute Aftercare following right knee joint replacement surge ry acute Status post total right knee replacement acute Aftercare following right knee joint replacement surge ry acute Greater trochanteric bursitis of left hip acute Greater trochanteric bursitis of right hip acute [facility] Work Phone: Evaluation note* Diagnosis Onset Date Resolution Status Status post right partial knee replacement acute Aftercare following right knee joint replacement surge ry acute Aftercare following right knee joint replacement surge ry acute Aftercare following right knee joint replacement surge ry acute Greater trochanteric bursitis of left hip acute Greater trochanteric bursitis of right hip acute Status post right partial knee replacement acute Essential (primary) hypertension acute DANIELITO (generalized anxiety disorder) acute Obesity acute [facility] Work Phone: Hisxhrj general Narrative - Reported* Type Description Date Medical History Acute sinus infection Medical History Acute non-recurrent maxillary si nusitis Medical History Fever blister Medical History Menopause Medical History Allergic contact dermatitis due to plants, except food Medical History Diastolic blood pressure 90 mm H g or higher Medical History BMI 37.0-37.9, adult Surgical History hysterectomy Surgical History appendectomy Surgical History tonsillectomy Surgical History knee surgery Hospitalization History see surgical [facility] Other [facility] general Narrative - Reported* Type Description Date Medical History Acute sinus infection Medical History Acute non-recurrent maxillary si nusitis Medical History Fever blister Medical History Menopause Medical History Allergic contact dermatitis due to plants, except food Medical History Diastolic blood pressure 90 mm H g or higher Medical History BMI 37.0-37.9, adult Surgical History hysterectomy Surgical History appendectomy Surgical History tonsillectomy Surgical History right knee surgery arthroscopy Hospitalization History see surgical [facility] Other Hospital Discharge instructions Additional Instructions Joint Replacement Discharge Instructions Your safety during your recovery process is important to us. Please seek immediate emergency care if you have sudden chest pain or shortness of breath. Additionally, please call our office at [phone] should any of the following occur: wound bleeding or an increase in bleeding, increased swelling, redness around the incision, fever over 101 F, excessive vomiting, nosebleeds, or bloody stool. Discharge Medications (scheduled) indicated with an X: ___X____ Senokot-S 8.6-50mg tablet. Take 2 tablets by mouth daily for 30 days or as long as you are taking a narcotic pain medication (tramadol, oxycodone, or morphine). Begin the day of surgery. ____X Miralax 17g packet. Drink 1 packet mixed with 8 ounces of water daily for 7 days. Begin the morning after surgery. Begin your home anticoagulation medication, the morning after surgery. Take as prescribed like you were before surgery. Ecotrin (coated aspirin) 81mg tablet by mouth twice daily for 35 days. Begin the morning after surgery. ___X____ Protonix (pantoprazole) 20mg tablet by mouth daily for 35 days. Begin the morning after surgery. ___X____ Xarelto (rivaroxaban) 10mg table by mouth daily for 35 days. Begin the morning after surgery. Celebrex (celecoxib) 200mg tablet by mouth twice daily for 30 days. Take with food. Begin the morning after surgery. Duricef (cefadroxil) 500mg tablet by mouth twice daily for 7 days. Take with food. Begin the morning after surgery. ___X____ Bactrim-DS (sulfamethoxazole & trimethoprim) 800mg-160mg tablet by mouth twice daily for 7 days. Take with food. Begin the morning after surgery. Cleocin (clindamycin) 300mg tablet by mouth 3 times (every 8 hours) a day for 7 days. Take with food. Begin the morning after surgery. ___X____ Tylenol (acetaminophen) 500mg tablet. Take 2 tablets 3 times (every 8 hours) a day for 30 days. Begin the night of surgery if necessary. ___X____ Prednisone 10mg tablet. Take 1 tablet daily for 10 days. Begin the morning after surgery. *If you have a patch behind your ear remove it the morning after surgery, discard, and thoroughly wash your hands. Discharge Medications (as needed) indicated with an X: ___X____ Zofran (Ondansetron) 4mg tablet by mouth 3 times (every 8 hours) a day as needed for nausea. Begin the night of surgery if necessary. ___X___ Tramadol (Ultram) 50mg tablet. Take 1 tablet by mouth every 6 hours as needed for pain. Do not take at the same time as oxycodone, MS Contin (morphine extended release), or Dilaudid (hydromorphone). Take with food. Begin the night of surgery. Take around the clock for 24 hours after surgery and then utilize if necessary. ___X____ Oxycodone 5mg tablet. Take 1 tablet by mouth every 4 hours as needed for pain. If pain unrelenting 30 minutes after taking 1 tablet, then take another 1 tablet. Do not take at the same time as MS Contin (morphine extended release), Dilaudid (hydromorphone), or Tramadol (Ultram). Take with food. Begin the night of surgery. Take around the clock for 24 hours after surgery and then utilize if necessary. MS Contin (morphine extended release) 15mg tablet. Take 1 tablet by mouth every 12 hours as needed for BREAKTHROUGH pain only. If pain unrelenting 30 minutes after you have taken the second oxycodone 5mg tablet, then take 1 MS Contin tablet. Do not take at the same time as oxycodone or Tramadol (Ultram); this is a time-released medication and can only be taken once every 12 hours. Resume oxycodone at next scheduled time (4 hours after the MS Contin tablet). Begin the night of surgery if necessary. Dilaudid (hydromorphone) 2mg tablet. Take 1 tablet by mouth every 8 hours as needed for BREAKTHROUGH pain only. If pain unrelenting 30 minutes after oxycodone, then take 1 Dilaudid tablet. Do not take at the same time as oxycodone or Tramadol (Ultram). Resume oxycodone at next scheduled time (4 hours after the Dilaudid tablet). Begin the night of surgery if necessary. Discharge Instructions: BE SURE YOU HAVE READ THE BOOKLET YOU RECEIVED IN THE OFFICE. Home Health: Home health is a valuable partner in the joint replacement process; they will be your first step to your road of recovery. A therapist will see you the day after your surgery; they will be at your home before noon. They will see you the first three days after surgery and continue working with you until I see you in the office for your 2-week post-op appointment. Follow their instructions. Exercises are to be done several times a day, including the days the therapist does not come to your house! Wound Care: Your surgical incision may be covered with a few different dressings. Your home health physical therapist will remove the gauze dressing the first day after surgery, but they will leave one of the following in place until you see me in the office. Zipline This is a no contact dressing that will stay in place until you are seen in the office for your 2-week post-op appointment. Do not place any ointments, creams, or lotions on your wound. Avoid getting outside on hot days; excessive sweating can increase the risk of wound infection. If there is drainage, place a gauze dressing over the wound, secure with paper tape, and call your therapist. A small amount of drainage is expected. When you do bathe, allow soapy water to run over the dressing site, but do not scrub the incision or the dressing. Pat the dressing site dry with a towel after you shower. DO NOT take a bath, enter a pool, charles/pond,or ocean until we discuss this at your post-op appointments. Aquacel This is a silver-impregnated dressing with antibiotic properties that will stay in place until you are seen in the office for your 2-week post-op appointment. Do not place any ointments, creams, or lotions around your wound or on the dressing. Avoid getting outside on hot days; excessive sweating can increase the risk of wound infection. If there is drainage, place a gauze dressing over the wound, secure with paper tape, and call your therapist. A small amount of drainage is expected. When you do bathe, allow soapy water to run over the dressing site, but do not scrub the incision or the dressing. Pat the dressing site dry with a towel after you shower. DO NOT take a bath, enter a pool, charles pond, or ocean until we discuss this at your post-op appointments. Prevena This is a negative pressure wound therapy device with a collection container for any drainage. If this becomes completely full, call your therapist to discuss changing the collection container. This device also has a 14-day battery. Your home health physical therapist will remove the dressing 14 days after your surgery; it will be removed prior to your initial follow up appointment. Do not place any ointments, creams, or lotions around your wound or on the dressing. Avoid getting outside on hot days; excessive sweating can increase the risk of wound infection. When you do bathe, allow soapy water to run over the dressing site, but do not scrub the device or the surrounding skin. DO NOT get the device wet! Pat the dressing site dry with a towel after you shower. DO NOT take a bath, enter a pool, charles/pond, or ocean until we discuss this at your post-op appointments. What to expect: SWELLING: Ice frequently, a minimum of 4 times a day for 20 minutes at a time for the first 2-3 weeks after surgery, especially after doing your exercises. While icing, elevate your foot above the level of your heart with several pillows under your ankle. DO NOT put pillows under your knee. (KNEE REPLACEMENT ONLY) Avoid prolonged periods of sitting over the first 7 to 10 days after surgery. We recommend that you not sit for more than 45 to 60 minutes at a time. You should get up and move around or lie down and elevate your leg. BRUISING: You will have bruising to some degree; possibly the thigh, calf, ankle, foot, and in some cases the genitalia. Do not be alarmed. The bruising will eventually go away on its own as the body reabsorbs the blood. BLISTERS: Some patients may develop blisters around the knee/hip and/or the incision. Although they can be alarming in appearance, they pose no significant risk to your joint replacement. Leave the blisters alone and allow them to heal on their own. NUMBNESS: Usually normal around the incision. For knee replacements, the outside of the knee may be involved as well. The area of numbness may shrink over time or it could last forever. For hip replacements, you may notice numbness on the outside of the thigh extending down the outside of the knee. The area of numbness may shrink over time or it could last forever. YOMI gardner (dylan): Wear them for 4 weeks on the operative side and 2 weeks on the nonoperative side. Try to wear these as 24/ as possible to help decrease swelling. Weight Bearing, Walkers, and Canes: Do not remove your knee immobilizer. Do not walk without this until your therapist has removed it either on the first day after surgery or the second day after surgery. Do not attempt to walk without your walker and your home care specialist until the therapist checks you the following day after surgery and gives you further instruction. Typically, you will start out on a walker, then progress to a cane, and eventually walk without any device. Some of our patients do this within 2 weeks of surgery, while others can take 6 weeks. Pain Medications: You may experience significant pain. Our goal is to make your pain manageable (not absent, since this is usually not realistic) and to allow you to progress with your therapy for your hip or knee. Take your pain medication scheduled for the first 24 hours, then take it as needed. Always take your pain medication with food to decrease nausea and vomiting. Be sure to take stool softeners and/or laxatives as directed. You may take fann-cnp-urdeznk Benadryl if itching occurs without a rash or hives. Icing and elevation will help relieve pain as well, do not underestimate the power of ice and elevation. We do recommend that you stop taking narcotic pain medications by 4-6 weeks after surgery and if necessary, continue to use anti-inflammatory medications such as Mobic (meloxicam), Celebrex (celecoxib), or an nrrf-kan-oyoxrka medication (Aleve, Motrin, Ibuprofen, etc). Driving an automobile: You must be off all narcotic pain medications. If your right leg is involved, that is your braking leg. Your physical therapist needs to help you determine that you can actively and firmly hit the brake and sustain it as this could be a life or situation for you or someone else. You will not be cleared to drive by me or anyone else. It is up to you to know when you feel safe to drive. We do recommend utilizing an empty parking lot to practice and ensure you are able to slam on the brakes if necessary during an emergency. Low Grade Fever (less than 101 F): Low-grade fevers can be treated, but make sure you do not exceed the daily limit of Tylenol. The daily limit on Tylenol (acetaminophen) is 3000 mg in a 24-hour period. If you have procedures done after your joint replacement: Dental procedures (including routine cleaning), prostate surgery, colonoscopy, and other invasive procedures could increase your risk for a total joint infection. During a postoperative visit, be sure to discuss the use of prophylactic antibiotic therapy prior to and sometimes after these invasive procedures. The decision to utilize antibiotics before and/or after these invasive procedures is a shared decision process between you and myself. Constipation: If you develop constipation in spite of taking stool softeners and/or laxatives, follow the protocol below: Day 2 of constipation if no results, use a Dulcolax suppository Day 3 of constipation if no results, use a fleet s enema. If no results by the afternoon, notify our office. Bladder Habits: If you have difficulty urinating or are unable to urinate within 12 hours after arriving home following your surgery, please notify our office immediately. Expectations for Pain Relief after Joint Replacement: Patients predictably improve for up to a year after a hip or knee replacement. It is normal for you to still have some pain in your hip or knee for as much as 3 to 9 months after surgery. The pain relief will come, but you should not expect great relief of pain in less than this time. High demand activities (such as going up and down stairs) frequently take 3 to 9 months before patients feel comfortable doing them. It is permissible to go up and down stairs whenever you can safely navigate them, but it will take much longer to do them normally and with great confidence. Questions or Problems: If you have any questions, problems, or confusion about your recovery after your hip or knee replacement, please feel free to call our office at [phone]. You are a priority of ours and we will not be upset with you if you call. We would much rather you call to confirm aspects of your recovery process as opposed to possibly hindering your recovery with inappropriate care. We are committed to providing you with the best care possible. Kirstin Dee II, MD Updated 07/17/23[facility] Work Phone: Summary Purpose Family History Relationship Condition Age at Onset Recorded Date/T eliza father Unknown Not Specified Unknown Relationship Condition Age at Onset Recorded Date/T eliza father Unknown Heart disease Unknown Diabetes mellitus Unknown Not Specified Unknown Malignant neoplasm of lung Unknown Relationship Condition Age at Onset Recorded Date/T eliza father Diabetes mellitus Unknown Heart disease Unknown Unknown Not Specified Unknown Malignant neoplasm of lung Unknown Arthritis Unknown brother Diabetes mellitus Unknown Relationship Condition Age at Onset Recorded Date/T eliza father Diabetes mellitus Unknown Heart disease Unknown Unknown mother Unknown Malignant neoplasm of lung Unknown Arthritis Unknown brother Diabetes mellitus Unknown Advance Directives Advance Directive Response Recorded Date/ Time Advance Directives No January 04 2:50pm Advance Directive Response Recorded Date/ Time Advance Directives No January 04 3:50pm Reason for Referral Reason Ms. Ritter is being referred for generalized arthritic pain. Diagnosis 1 Primary osteoarthrit is, right hand (M19.041) Diagnosis 2 Unilateral primary o steoarthritis, right knee (M17.11) Diagnosis 3 Primary osteoarthrit is, left hand (M19.042) Diagnosis 4 Lumbar spondylosis ( M47.816) Referral Organization [facility] raisa Referring Provider First Name Parviz Referring Provider Last Name Talon Referring Provider Specialty Internal Me dicine Referred Organization Unknown Facility Referred Provider Vahid Lomax Referred Provider Specialty Rheumatology Referral Priority Routine General Notes Ms. Ritter has gene ralized osteoarthritis, which involves her lumbar spine, B/L hands (MCP, DIP) and knees. She also recently developed an acute exacerbation of low back pain after reaching for her mother in low. Pain results in decreased motion due to aching and stiffness. She has noticed swelling at times w/o erythema or warmth. Symptoms improved with steroids but not with Meloxicam. Her labs reveal normal ESR and RA. Ms. Ritter is being referred for evaluation and treatment Clinical Notes Include all labs fro m June, Chief Complaint and Reason for Visit Chief Complaint Recheck Rt Knee Pain M54.50 M17.11 M81.0 Z79.899 R Knee OA / Back pain Chief Complaint M17.11 M81.0 Z79.899 R Knee OA / Back pain BP recheck Reason for Visit Essential (primary) hypertension DANIELITO (generalized anxiety disorder) Primary osteoarthritis of right knee Chief Complaint M17.11 M81.0 Z79.899 R Knee OA / Back pain BP recheck Knee Pain M17.11 - Unilateral primary osteoarthritis, right H&P RTKA Pre op R TKA BP re-check H&P RTKA Reason for Visit Essential (primary) hypertension DANIELITO (generalized anxiety disorder) Primary osteoarthritis of right knee Primary osteoarthritis of right knee Essential (primary) hypertension DANIELITO (generalized anxiety disorder) Obesity Primary osteoarthritis of right knee Preop exam for internal medicine Primary osteoarthritis of right knee Chief Complaint M17.11 M81.0 Z79.899 R Knee OA / Back pain BP recheck Knee Pain M17.11 - Unilateral primary osteoarthritis, right H&P RTKA Pre op R TKA BP re-check H&P RTKA Knee Pain Reason for Visit Essential (primary) hypertension DANIELITO (generalized anxiety disorder) Primary osteoarthritis of right knee Primary osteoarthritis of right knee Essential (primary) hypertension DANIELITO (generalized anxiety disorder) Obesity Primary osteoarthritis of right knee Preop exam for internal medicine Primary osteoarthritis of right knee Chief Complaint M17.11 M81.0 Z79.899 R Knee OA / Back pain BP recheck Knee Pain M17.11 - Unilateral primary osteoarthritis, right H&P RTKA Pre op R TKA BP re-check H&P RTKA Knee Pain Possible Ear infection/Drainage Reason for Visit Essential (primary) hypertension DANIELITO (generalized anxiety disorder) Primary osteoarthritis of right knee Primary osteoarthritis of right knee Essential (primary) hypertension DANIELITO (generalized anxiety disorder) Obesity Primary osteoarthritis of right knee Preop exam for internal medicine Primary osteoarthritis of right knee Chief Complaint M17.11 M81.0 Z79.899 R Knee OA / Back pain BP recheck Knee Pain M17.11 - Unilateral primary osteoarthritis, right H&P RTKA Pre op R TKA BP re-check H&P RTKA Knee Pain Possible Ear infection/Drainage Reason for Visit Essential (primary) hypertension DANIELITO (generalized anxiety disorder) Primary osteoarthritis of right knee Primary osteoarthritis of right knee Essential (primary) hypertension DANIELITO (generalized anxiety disorder) Obesity Primary osteoarthritis of right knee Preop exam for internal medicine Primary osteoarthritis of right knee Essential (primary) hypertension External otitis DANIELITO (generalized anxiety disorder) HSV (herpes simplex virus) infection Chief Complaint M17.11 M81.0 Z79.899 R Knee OA / Back pain BP recheck Knee Pain M17.11 - Unilateral primary osteoarthritis, right H&P RTKA Pre op R TKA BP re-check H&P RTKA Knee Pain Possible Ear infection/Drainage Knee Pain Knee Pain Reason for Visit Essential (primary) hypertension DANIELITO (generalized anxiety disorder) Primary osteoarthritis of right knee Primary osteoarthritis of right knee Essential (primary) hypertension DANIELITO (generalized anxiety disorder) Obesity Primary osteoarthritis of right knee Preop exam for internal medicine Primary osteoarthritis of right knee Essential (primary) hypertension External otitis DANIELITO (generalized anxiety disorder) HSV (herpes simplex virus) infection Chief Complaint BP recheck Knee Pain M17.11 - Unilateral primary osteoarthritis, right H&P RTKA Pre op R TKA Knee Pain BP re-check H&P RTKA Knee Pain Possible Ear infection/Drainage Knee Pain Knee Pain [facility] PT 2 WK POST OP RTKA Reason for Visit Essential (primary) hypertension DANIELITO (generalized anxiety disorder) Primary osteoarthritis of right knee Primary osteoarthritis of right knee Essential (primary) hypertension DANIELITO (generalized anxiety disorder) Obesity Primary osteoarthritis of right knee Preop exam for internal medicine Primary osteoarthritis of right knee Essential (primary) hypertension External otitis DANIELITO (generalized anxiety disorder) HSV (herpes simplex virus) infection Greater trochanteric bursitis Status post right partial knee replacement Chief Complaint Knee Pain M17.11 - Unilateral primary osteoarthritis, right H&P RTKA Pre op R TKA Knee Pain BP re-check H&P RTKA Knee Pain Possible Ear infection/Drainage Knee Pain Knee Pain [facility] PT 2 WK POST OP RTKA 4 WK RECHECK RTKA Z96.651 - Presence of right artificial knee joint Reason for Visit Primary osteoarthrit is of right knee Essential (primary) hypertension DANIELITO (generalized anxiety disorder) Obesity Primary osteoarthritis of right knee Preop exam for internal medicine Primary osteoarthritis of right knee Essential (primary) hypertension External otitis DANIELITO (generalized anxiety disorder) HSV (herpes simplex virus) infection Greater trochanteric bursitis Status post right partial knee replacement Aftercare following right knee joint replacement surgery Status post total right knee replacement Chief Complaint Knee Pain BP re-check H&P RTKA Knee Pain Possible Ear infection/Drainage Knee Pain Knee Pain [facility] PT 2 WK POST OP RTKA 4 WK RECHECK RTKA Z96.651 - Presence of right artificial knee joint Reason for Visit Essential (primary) hypertension DANIELITO (generalized anxiety disorder) Obesity Primary osteoarthritis of right knee Preop exam for internal medicine Primary osteoarthritis of right knee Essential (primary) hypertension External otitis DANIELITO (generalized anxiety disorder) HSV (herpes simplex virus) infection Greater trochanteric bursitis Status post right partial knee replacement Aftercare following right knee joint replacement surgery Status post total right knee replacement Chief Complaint H&P RTKA Knee Pain Possible Ear infection/Drainage Knee Pain Knee Pain [facility] PT 2 WK POST OP RTKA 4 WK RECHECK RTKA Z96.651 - Presence of right artificial knee joint 3 WEEKS Reason for Visit Primary osteoarthrit is of right knee Essential (primary) hypertension External otitis DANIELITO (generalized anxiety disorder) HSV (herpes simplex virus) infection Greater trochanteric bursitis Status post right partial knee replacement Aftercare following right knee joint replacement surgery Status post total right knee replacement Aftercare following right knee joint replacement surgery Status post total right knee replacement Chief Complaint Knee Pain Knee Pain [facility] PT 2 WK POST OP RTKA 4 WK RECHECK RTKA Z96.651 - Presence of right artificial knee joint 3 WEEKS Z47.1 - Aftercare following joint replacement surg 3 WEEKS Reason for Visit Greater trochanteric bursitis Status post right partial knee replacement Aftercare following right knee joint replacement surgery Status post total right knee replacement Aftercare following right knee joint replacement surgery Status post total right knee replacement Aftercare following right knee joint replacement surgery Greater trochanteric bursitis of left hip Greater trochanteric bursitis of right hip Chief Complaint Knee Pain Knee Pain [facility] PT 2 WK POST OP RTKA 4 WK RECHECK RTKA Z96.651 - Presence of right artificial knee joint 3 WEEKS Z47.1 Z96.651 3 WEEKS Reason for Visit Greater trochanteric bursitis Status post right partial knee replacement Aftercare following right knee joint replacement surgery Status post total right knee replacement Aftercare following right knee joint replacement surgery Status post total right knee replacement Aftercare following right knee joint replacement surgery Greater trochanteric bursitis of left hip Greater trochanteric bursitis of right hip Chief Complaint [facility] PT 2 WK POST OP RTKA 4 WK RECHECK RTKA Z96.651 - Presence of right artificial knee joint 3 WEEKS Z47.1 Z96.651 3 WEEKS not feeling well Reason for Visit Status post right pa rtial knee replacement Aftercare following right knee joint replacement surgery Aftercare following right knee joint replacement surgery Aftercare following right knee joint replacement surgery Greater trochanteric bursitis of left hip Greater trochanteric bursitis of right hip Status post right partial knee replacement Essential (primary) hypertension DANIELITO (generalized anxiety disorder) Obesity Additional Source Comments INFORMATION SOURCE (unrecogn ized section and content) DATE CREATED AUTHOR 07/27/2022 [facility] DATE CREATED AUTHOR AUTHOR'S ORGANIZ ATION 12/30/2023 [facility] EPIC DATE CREATED AUTHOR AUTHOR'S ORGANIZ ATION 01/10/2024 [facility] REASON FOR VISIT (unrecogniz ed section and content) Medication IncreaseNP RT CALVIN ANAYA PTNo InformationFollow UpRECHECK RT KNEE PAINBP readings neededRecheck Right KneePRE OP CLEARANCE - RIGHT KNEE SURGERYBP readingsBP reading Care Teams (unrecognized sec tion and content) Team Status: Active Member Role Status Dates Parviz Hanley DO Primary Care Provider Active Team Status: Inactive Member Role Status Dates Parviz Hanley DO Primary Care Provider Active Start: October 25, 2023 End: October 25, 2023 Marjorie El NP-C Attending Provider Active Start: October 25, 2023 End: October 25, 2023 Team Status: Inactive Member Role Status Dates Parviz Hanley DO Primary Care Provider Active Start: November 22, 2023 End: November 22, 2023 Kirstin Dee II, MD Attending Provider Active Start: November 22, 2023 End: November 22, 2023 Team Status: Inactive Member Role Status Dates Parviz Hanley DO Primary Care Provider Active Start: December 13, 2023 End: December 13, 2023 Kirstin Dee II, MD Attending Provider Active Start: December 13, 2023 End: December 13, 2023 Team Status: Inactive Member Role Status Dates Parviz Hanley DO Primary Care Provider Active Start: January 04, 2024 End: January 04, 2024 Kirstin Dee II, MD Attending Provider Active Start: January 04, 2024 End: January 04, 2024 Team Status: Inactive Member Role Status Dates Parviz Hanley DO Primary Care Provide r, Attending Provider Active Start: January 23, 2024 End: January 23, 2024 Team Status: Active Member Role Status Dates Parviz Hanley DO Primary Care Provider Active Team Status: Active Member Role Status Dates Parviz Hanley DO Primary Care Provider Active Start: October 09, 2023 Kirstin Dee II, MD Attending Provi ciro, Other Provider Active Start: October 09, 2023 Team Status: Inactive Member Role Status Dates Parviz Hanley DO Primary Care Provider Active Start: October 09, 2023 End: October 09, 2023 Kirstin Dee II, MD Attending Provider Active Start: October 09, 2023 End: October 09, 2023 Team Status: Active Member Role Status Eli Hanley DO Primary Care Provide r, Attending Provider Active Start: October 19, 2023 Team Status: Inactive Member Role Status Eli Hanley DO Primary Care Provider Active Start: October 25, 2023 End: October 25, 2023 Marjorie El [employer]OV[employer]NER-C Attending Provider Active Start: October 25, 2023 End: October 25, 2023 Team Status: Inactive Member Role Status Eli Hanley DO Primary Care Provider Active Start: November 22, 2023 End: November 22, 2023 Kirstin Dee II, MD Attending Provider Active Start: November 22, 2023 End: November 22, 2023 Team Status: Inactive Member Role Status Eli Hanley DO Primary Care Provider Active Start: December 13, 2023 End: December 13, 2023 Kirstin Dee II, MD Attending Provider Active Start: December 13, 2023 End: December 13, 2023 Team Status: Active Member Role Status Eli Hanley DO Primary Care Provider Active Start: January 04, 2024 Kirstin Dee II, MD Attending Provider Active Start: January 04, 2024 Team Status: Inactive Member Role Status Eli Hanley DO Primary Care Provider Active Start: January 04, 2024 End: January 04, 2024 Kirstin Dee II, MD Attending Provider Active Start: January 04, 2024 End: January 04, 2024 Team Status: Active Member Role Status Dates NON STAFF Primary Care Provider Active Team Status: Inactive Member Role Status Dates Kirstin Dee II, MD Attending Provider Active Start: May 11, 2023 End: May 11, 2023 Team Status: Inactive Member Role Status Dates NON STAFF Primary Care Provider Active Start: May 11, 2023 End: May 11, 2023 Clay Traore DO Attending Provider Active St art: May 11, 2023 End: May 11, 2023 Team Status: Inactive Member Role Status Dates NON STAFF Primary Care Provider Active Start: July 27, 2023 End: July 27, 2023 Kirstin Dee II, MD Attending Provider Active Start: July 27, 2023 End: July 27, 2023 Team Status: Active Member Role Status Dates NON STAFF Primary Care Provider Active Start: July 27, 2023 Kirstin Dee II, MD Attending Provider Active Start: July 27, 2023 Team Status: Inactive Member Role Status Dates NON STAFF Primary Care Provider Active Start: August 18, 2023 End: August 18, 2023 Parviz Hanley DO Attending Provider Active Sta rt: August 18, 2023 End: August 18, 2023 Team Status: Inactive Member Role Status Dates Kirstin Dee II, MD Attending Provider Active Start: August 24, 2023 End: August 24, 2023 Parviz Hanley DO Primary Care Provider Active Start: August 24, 2023 End: August 24, 2023 Team Status: Inactive Member Role Status Dates Parviz Hanley DO Primary Care Provider Active Start: August 24, 2023 End: August 24, 2023 Kirstin Dee II, MD Attending Provider Active Start: August 24, 2023 End: August 24, 2023 Team Status: Inactive Member Role Status Dates NON STAFF Primary Care Provider Active Start: August 24, 2023 End: August 24, 2023 Kirstin Dee II, MD Attending Provider Active Start: August 24, 2023 End: August 24, 2023 Team Status: Active Member Role Status Dates Kirstin Dee II, MD Attending Provider Active Start: August 24, 2023 Parviz Hanley DO Primary Care Provider Active Start: August 24, 2023 Team Status: Inactive Member Role Status Dates Parviz Hanley DO Primary Care Provider Active Start: August 25, 2023 End: August 25, 2023 Kirstin Dee II, MD Attending Provider Active Start: August 25, 2023 End: August 25, 2023 Team Status: Inactive Member Role Status Dates Parviz Hanley DO Primary Care Provide r, Attending Provider Active Start: September 06, 2023 End: September 06, 2023 Team Status: Inactive Member Role Status Dates Parviz Hanley DO Primary Care Provider Active Start: September 27, 2023 End: September 27, 2023 Kirstin Dee II, MD Attending Provider Active Start: September 27, 2023 End: September 27, 2023 Team Status: Active Member Role Status Dates Parviz Hanley DO Primary Care Provider Active Start: September 29, 2023 Kirstin Dee II, MD Attending Provider Active Start: September 29, 2023 Team Status: Inactive Member Role Status Dates Parviz Hanley DO Primary Care Provide r, Attending Provider Active Start: September 29, 2023 End: September 29, 2023 Team Status: Inactive Member Role Status Dates Parviz Hanley DO Primary Care Provider Active Start: September 29, 2023 End: September 29, 2023 Kirstin Dee II, MD Attending Provider Active Start: September 29, 2023 End: September 29, 2023 Team Status: Inactive Member Role Status Dates Kirstin Dee II, MD Attending Provider Active Start: September 04, 2023 End: September 04, 2023 Parviz Hanley DO Primary Care Provider Active Start: September 04, 2023 End: September 04, 2023 Team Status: Active Member Role Status Dates Parviz Hanley DO Primary Care Provider Active Start: November 22, 2023 Kirstin Dee II, MD Attending Provider Active Start: November 22, 2023 Team Status: Inactive Member Role Status Dates aPrviz Hanley DO Primary Care Provide r, Attending Provider Active Start: January 23, 2024 End: January 23, 2024 Goals (unrecognized section and content) Goals may be documented in a n alternate section FOR RECORDS PERTAINING TO PATIENTS WHO ARE OR HAVE BEEN ENROLLED IN A CHEMICAL DEPENDENCY/SUBSTANCEABUSE PROGRAM, SOME INFORMATION MAY BE OMITTED. This clinical summary was aggregated from multiple sources. Caution should be exercised in using it in the provision of clinical care. This summary normalizes information from multiple sources, and as a consequence, information in this document may materially change the coding, format and clinical context of patient data. In addition, data may be omitted in some cases. CLINICAL DECISIONS SHOULD BE BASED ON THE PRIMARY CLINICAL RECORDS. [employer] provides no warranty or guarantee of the accuracy or completeness of information in this document.
[2024-01-24 08:00] LABS: Basophils Absolute Auto 0.1 10^3/uL (0.0-0.1); Basophils Percent Auto 0.5 % (0.2-2.0); Eosinophils Absolute Auto 0.1 10^3/uL (0.0-0.7); Hematocrit 43.5 % (36.0-48.0); Hemoglobin 14.8 g/dL (12.0-16.0); Immature Granulocytes Abs Auto 0.04 10^3/uL (0.00-0.03); Immature Granulocytes Pct Auto 0.4 % (0.0-0.5); Lymphocytes Absolute Auto 2.6 10^3/uL (1.2-3.8); Mean Corpuscular Hemoglobin 29.5 pg (26.7-34.0); Mean Corpuscular Volume 86.7 fL (81.0-99.0); Mean Platelet Volume 9.4 fL (9.5-13.5); Monocytes Absolute Auto 1.1 10^3/uL (0.3-0.8); Neutrophils Absolute Auto 6.6 10^3/uL (1.4-6.5); Neutrophils Percent Auto 63.1 % (43.0-75.0); Platelet Count 242 10^3/uL (150-450); Red Blood Count 5.02 10^6/uL (4.20-5.40); Red Cell Distribution Width 13.1 % (11.0-15.0); White Blood Count 10.5 10^3/uL (4.0-11.0)
[2024-01-24 09:17] LABS: Alanine Aminotransferase 26 U/L (14-59); Albumin Globulin Ratio 1.1; Albumin Level 3.5 g/dL (3.4-5.0); Alkaline Phosphatase 75 U/L (46-116); Anion Gap 13.5; Aspartate Amino Transferase 15 U/L (15-37); BUN Creatinine Ratio 26.1; Bilirubin Total 0.5 mg/dL (0.2-1.0); Calcium 9.2 mg/dL (8.5-10.1); Carbon Dioxide 26.4 mmol/L (21.0-32.0); Chloride 101 mmol/L (98-107); Estimated GFR (African America >60 (>=60); Estimated GFR (Non-African Ame >60 (>=60); Globulin 3.3 g/dL; Glucose 88 mg/dL (74-106); Potassium 3.9 mmol/L (3.5-5.1); Sodium 137 mmol/L (136-145); Thyroid Stimulating Hormone 2.148 uIU/mL (0.358-3.740); Total Protein 6.8 g/dL (6.4-8.2)
== END 2024-01-24 07:44 | disposition home or self-care (01) ==
LOC: LAB 07:45
PROVIDERS: PCP Internal Medicine; Visit Provider Internal Medicine
DX: R53.83 Other fatigue (principal); I10 Essential (primary) hypertension
CPT/HCPCS: 36415; 80053; 84443; 85025

== ENCOUNTER 2024-10-26 09:04 | Outpatient (OUT) | payer BC, SELFPAY ==
--- NOTE | 2024-10-26 09:08 | US_ITS ---
[facility] [id number] Patient Name: ALICIA RITTER MRN: [id number] date: 1960 Sex: F Assigned Patient Location: [place] Current Patient Location: Accession/Order Number: [id number] Exam Date: 10/27/2024 20:24 Report Date: 10/27/2024 20:25 At the request of: LIZZ NI DO Procedure: US thyroid Thyroid ultrasound Reason for exam: Hoarseness loss of hair, fatigue Comparison: none Technique: Grayscale and color Doppler images of the thyroid gland were obtained. Findings: Right lobe measures 4.4 x 1.6 x 1.7 cm. The left lobe measures 4.4 x 1.8 x 1.0 cm. The isthmus measures 2.5 mm. A hypoechoic nodule seen involving the mid aspect of the right lobe of the thyroid gland measuring 17 x 14 x 8 mm. No microcalcifications are noted. US/US thyroid Impression: A hypoechoic nodule seen involving the mid aspect of the right lobe measuring 17 x 14 x 8 mm. FNA should be contemplated. Impression dictated by: Brendon Hauser Jr., D.O. 10/27/2024 8:25 PM Dictation [facility] Electronically authenticated by: [id number] Y Date: 10/27/2024 20:25
[2024-10-26 10:01] LABS: Free T3 3.11 pg/mL (2.18-3.98); Thyroid Stimulating Hormone 1.869 uIU/mL (0.358-3.740)
[2024-10-26 10:36] LABS: Free T4 1.05 ng/dL (0.76-1.46)
== END 2024-10-26 09:05 | disposition home or self-care (01) ==
LOC: US 09:05
PROVIDERS: PCP Internal Medicine; Visit Provider Internal Medicine
DX: R49.0 Dysphonia (principal); L65.9 Nonscarring hair loss, unspecified; R53.83 Other fatigue; E04.1 Nontoxic single thyroid nodule
CPT/HCPCS: 36415; 76536; 84439; 84443; 84481

== ENCOUNTER 2025-05-08 10:31 | Outpatient (OUT) | payer BC, SELFPAY ==
--- OUTSIDE RECORDS SUMMARY | 2025-04-30 07:06 | XMS_ITS | Continuity of Care Document ---
Author Organization [facility] Address [address] [place] [address] Phone Care Team Providers Care Terminal Supervisor Name Role Phone Talon Parviz GONZALEZ Primary Care Provider Clay Traore DO Attending Provider Clay Traore DO Other Provider Care Teams Patient Care Team Team Status: Active Member Role/Relationship Status Dates Parviz Hanley DO Primary Care Provider Active Visit Care Team Team Status: Inactive Member Role/Relationship Status Dates Parviz Hanley DO Primary Care Provider Active Start: February 17, 2025 End: February 17, 2025Tasneem Billings ProviderActiveStart: February 17, 2025 End: February 17, 2025 Visit Care Team Team Status: Inactive Member Role/Relationship Status Dates Parviz Hanley DO Primary Care Provider Active Start: March 19, 2025 End: March 19, 2025Tasneem Billings ProviderActiveStart: March 19, 2025 End: March 19, 2025 Visit Care Team Team Status: Inactive Member Role/Relationship Status Dates Parviz Hanley DO Primary Care Provider Active Start: March 25, 2025 End: March 25, 2025Tasneem Billings ProviderActiveStart: March 25, 2025 End: March 25, 2025 Visit Care Team Team Status: Inactive Member Role/Relationship Status Dates Parviz Hanley DO Primary Care Provider Active Start: April 16, 2025 End: April 16, 2025Tasneem Billings ProviderActiveStart: April 16, 2025 End: April 16, 2025 Visit Care Team Team Status: Inactive Member Role/Relationship Status Dates Parviz Hanley DO Primary Care Provider Active Start: April 22, 2025 End: April 22, 2025Tasneem Billings ProviderActiveStart: April 22, 2025 End: April 22, 2025 Patient Care Team Team Status: Active Member Role/Relationship Status Dates Parviz Hanley DO Primary Care Provider Active Start: April 30, 2025 Tasneem Billings ProviderActiveStart: April 30, 2025 Clay Traore DOOther ProviderActiveStart: April 30, 2025 Chief Complaint and Reason for Visit Chief Complaint Admit Date CONSULT DR ANAYA February 17, 2025 1: 15pm M24.811 M75.101 March 19, 2025 9:04am MRI RESULTS March 25, 2025 9:29am Shoulder pain April 16, 2025 8 :53am H & P RIGHT SHOULDER ARTHROSCOPY 11-05-2 April 22, 2025 10:30am Shoulder pain April 30, 2025 5 :43am Reason for Visit Admit Date Internal derangement of right shoulder A ugust 2024 1:15pm Rotator cuff syndrome of right shoulder February 17, 2025 1:15pm Biceps tendonitis on right February 9:29am Internal derangement of right shoulder S eptember 2024 9:29am Nontraumatic tear of right rotator cuff March 25, 2025 9:29am Rotator cuff syndrome of right shoulder March 25, 2025 9:29am Biceps tendonitis on right April 22, 2025 10:30am Internal derangement of right shoulder O ctober 2024 10:30am Nontraumatic tear of right rotator cuff April 22, 2025 10:30am Rotator cuff syndrome of right shoulder April 22, 2025 10:30am Allergies, Adverse Reactions, Alerts Allergen Type Severity Reaction Last Updated Verified Status Penicillins Allergy Mild Hives April 30, 2025 5:59am Ye s Active amlodipine Allergy Unknown Palpitations April 30, 2025 5:59a m Yes Active Social History Smoking Status Status Start Date End Date Date of Observa tion Never smoked tobacco (finding) November 5th, 2025 6:03am Observation Status Observation Response Date of Response Legal Sex Female (finding) Sex Assigned At BirthFemaleApril 1960 Family History Relationship Condition Age at Onset Recorded Date/T eliza father Diabetes mellitus Unknown Heart diseaseUnknownDeceasedUnknownmotherDeceasedUnknownMalignant neoplasm of lungUnknownArthritisUnknownbrotherDiabetes mellitusUnknownArthritisUnknown Problems Active Problems Problem Diagnosis/Recorded Date Onset Date Status C omments Status post arthroscopy of r ight shoulder April 29, 2025 8:33am Unknown Active Lumbosacral spondylosis with radiculopathyJuly 2023 8:23pmUnknownActive Cervical spondylosis with radiculopathyNovember 2023 11:25amUnknownActive DANIELITO (generalized anxiety disorder)August 17, 2023 7:50pmUnknownActivePrimary osteoarthritis of right kneeFebruary 2023 5:05pmUnknownActiveRotator cuff syndrome of right shoulderAugust 2024 12:45pmUnknownActiveOther specified postprocedural statesApril 2024 2:56pmUnknownActiveThyroid noduleMay 2024 12:23pmUnknownActiveUS: right sided, hypoechoic, 1.7cm nodule - 10/2024,FNA: right sided nodule - 11/25/1024,- benign follicular nodule ([place] II)Fatigue January 23, 2024 11:40amUnknownActiveHoarsenessApril 2024 9:37amUnknown ActiveChronic painAugust 2023 7:41amUnknownActiveInternal derangement of right shoulderAugust 2024 12:45pmUnknownActiveNontraumatic tear of right rotator cuffSeptember 2024 8:44amUnknownActiveWellness examinationApril 2024 6:11amUnknownActiveEssential (primary) hypertensionFebruary 2023 5:05pmUnknownActiveRight shoulder painAugust 2024 7:59amUnknownActive Biceps tendonitis on rightSeptember 2024 8:45amUnknownActiveBilateral carpal tunnel syndromeJanuary 2024 8:08amUnknownActiveThinning hairApril 2024 9:37amUnknownActiveObesityMarch 2023 7:51pmUnknownActive Inactive/Resolved Problems Problem Diagnosis/Recorded Date Onset Date Status C omments Greater trochanteric bursiti s of left hip Maru 2023 2:25pm Unknown Resolved Greater trochanteric bursitis of right hipJuly 2023 2:25pmUnknownResolved Medications Medication Status Dose Units Route Directions Qty Days Refills S tart Date Stop Date End Date Reason(s) Instructions Adherence Amlodipine 5 mg tablet Discontinued 5 MG PO Twice daily 60 30 0 August 17, 2023 12:00am August 17, 2023 3:53pmLosartan-Hydrochlorothiazide 50-12.5 mg tablet Iewugxgazecm7IAZHXInrxd61033Yjmhnolc 2023 12:00amMarch 2023 3:43pm Carvedilol 12.5 mg qjfaeaQysvzglftdzo77.5MGPOTwice bqagr82007Utpvcddj 2023 12:00amMarch 2023 1:09pmmust administer with a meal/foodLosartan- Hydrochlorothiazide 50-12.5 mg lpgdxqDmdggmvanrys1YXHWGDyiin80339Ogdee 2023 3:42pmMarch 2023 5:11pmCarvedilol 12.5 mg tabletDiscontinued0.ROUTE.COMPLEX 605March 2023 1:09pmMay 2023 11:02amTAKE 1 TABLET BY MOUTH TWICE A DAY *MUST TAKE WITH A MEAL/FOOD*Losartan-Hydrochlorothiazide 50-12.5 mg tablet Owqvppyhhohy3DXVXLNwzza97445Diecc 2023 5:11pmMarch 2023 4:46pm Telmisartan-Hydrochlorothiazid 40-12.5 mg konydrDlouajlsybsz5JBWBHToldy daily60 305March 2023 4:44pmMarch 2023 9:59pmLosartan-Hydrochlorothiazide 100- 25 mg vlvpggFudvumaxywng9VMFJRlsikr34425Dsgpc 2023 12:00amMarch 2023 11:41amLosartan-Hydrochlorothiazide 100-25 mg pfunjxIfkkcfbihxyw7EWWSFEeflc71742 August 30, 2023 12:00amSeptember 2023 11:08amSulfamethoxazole-Trimethoprim 800-160 mg xznpxcTlpsuxfdrduy6SHKPLTmxva hpiwp6994Dbhzk 2023 11:00pmMay 2023 11:02amEscitalopram Oxalate 10 mg libjryEpvcitjohenn79RVJZLsrgp14133 January 23, 2024 11:00pmAugust 2023 7:38amEscitalopram Oxalate 10 mg tablet Yrpundxmomwd11QQBSXxxoq02138Ovgpij 2nd, 2024 7:38amAugust 2023 8:26pm Escitalopram Oxalate 10 mg tabletDiscontinued0.ROUTE.JUSPZRS667Tenpce 2023 8:26pmMarch 2024 7:44amTAKE 1 TABLET BY MOUTH EVERY DAYCarvedilol 12.5 mg tabletDiscontinued0.ROUTE.SWCFSKH7058Mqfcdftrm 2023 1:12pmMarch 2024 10:29amTAKE 1 TABLET BY MOUTH TWICE A DAY *MUST TAKE WITH A MEAL/FOOD*Celecoxib 100 mg pvkfusaDghdxwrtglpt089JYAZnwa00078Vewbqgo 2023 11:00pmMarch 2024 10:27amarthritisTake with food.Escitalopram Oxalate 10 mg tablet Discontinued0.ROUTE.CAUZWYU637Rfsxa 2024 7:44amMarch 2024 10:29amTAKE 1 TABLET BY MOUTH DAILYLosartan 100 mg tabletDiscontinued0.ROUTE.TTUVEKJ0436 September 19, 2024 12:04pmMarch 2024 10:29amTAKE 1 TABLET BY MOUTH DAILY Carvedilol 12.5 mg tabletDiscontinued0.ROUTE.AVPYGKJ9754Vnar 2024 6:46am April 30, 2025 6:00amTAKE 1 TABLET BY MOUTH TWICE DAILY - MUST TAKE WITH A MEAL / FOODOxycodone 5 mg mwmgvhOfytve7CIUCA7X as needed for Xzlj5398Bwqorcdh 4th, 2025Status post arthroscopy of right shoulder Other specified postprocedural statesDO NOT RECONCILE UNTIL DOS 04/30/25 TO BE USED POST OPUnknownMeloxicam 15 mg uviugkMcuyrn37KGFGlmade28504Uhnfxzag 2024 12:00amDO NOT RECONCILE UNTIL DOS 04/30/25 TO BE USED POST OPUnknownAcetaminophen 500 mg poumilClmjrv809DBQWN6H as needed for Ufqk153Enlvnied 2024 12:00amDO NOT RECONCILE UNTIL DOS 04/30/25 TO BE USED POST OPUnknownDocusate Sodium (Colace) 100 mg prvyerlXuwvbf941SDYD Twice daily as needed for Lbqqzjkbvlql73066Xvxwrldn 2024 12:00amDO NOT RECONCILE UNTIL DOS 04/30/25 TO BE USED POST OPUnknownCarvedilol 12.5 mg tmgkzdSltftxzhthqf77.5MGPOTwice dailySeptember 2023 11:00pmSeptember 2023 1:13pmAcetaminophen 500 mg dkyyrpAmpgkw1876MJHWI1Z as needed for painSeptember 2023 11:00pmComplies with drug therapyCarvedilol 12.5 mg nfekwtXjnwjlooyjef96.5MGPOTwice dailyMarch 2024 11:00pmJune 2024 6:46amTAKE 1 TABLET BY MOUTH TWICE A DAY *MUST TAKE WITH A MEAL/FOOD*Losartan 100 mg lhcleaPvolvi700IUDGUxwih morningMarch 2024 11:00pmTAKE 1 TABLET BY MOUTH DAILYComplies with drug therapy Escitalopram Oxalate 10 mg aifdcwRnfxve88HXNXFtxneCkwex 2024 11:00pmTAKE 1 TABLET BY MOUTH DAILYComplies with drug therapyMultivitamin xyazmhRxsnnv2JWJRW Every morningMarch 2024 11:00pmComplies with drug therapyHydrocodone- Acetaminophen 5-325 mg tabletDiscontinued1 - 2TABPOEVERY 4-6 HOURS as needed for dnsh0615Nxmqm pril 2024 9:22amBilateral carpal tunnel syndrome Postoperative pain of extremity Carpal tunnel syndrome, bilateral upper limbs Other acute postprocedural pain Pain in unspecified limbDoxycycline Hyclate 100 mg evamemAtxkfrdqlvez389YKRO Twice gyxzs8184Excts 2024 11:00pmApril 2024 9:06amCarvedilol 12.5 mg kamgibIoxagl24.5MGPOTwice dailyNovember 2024 12:00amTAKE 1 TABLET BY MOUTH TWICE DAILY - MUST TAKE WITH A MEAL / FOODComplies with drug therapySennosides- Docusate Sodium (Senokot-S) 8.6-50 mg obfyuyLomjyjfwdekt0UBJVFgecle57850Ykuwhdzo 2023 12:00amApril 2023 7:58amDO NOT RECONCILE UNTIL DOS 09/04/2023. MED TO BED UPON DISCHARGE.Polyethylene Glycol 3350 (Miralax) 17 gram/dose powder Qhfrpgugqssg33GJQGipsfb679Adsniitl 2023 12:00amApril 2023 7:58am1 packed mixed with 8 ounces of fluid. DO NOT RECONCILE UNTIL DOS 09/04/2023. MED TO BED UPON DISCHARGE.Cefadroxil 500 mg mtnnlztLpvwxcjicfqt116LUIZC81U7533Boulodyg 2023 12:00amFebruary 2023 1:39pmDO NOT RECONCILE UNTIL DOS 09/04/2023. MED TO BED UPON DISCHARGE. Rivaroxaban 10 mg mjimyvDouwbgzjgnzk56DVITuepyh23587Lpwdygbe 2023 12:00am September 27, 2023 7:58amDO NOT RECONCILE UNTIL DOS 09/04/2023. MED TO BED UPON DISCHARGE.Acetaminophen 500 mg ztojtrEeaxwpvsotkl9526JRRPQ1O440819Cvncgyio 2023 12:00amApril 2023 7:58amDO NOT RECONCILE UNTIL DOS 09/04/2023. MED TO BED UPON DISCHARGE.Tramadol 50 mg psfwftYqqopcrqbdkb27IQUGO9S as needed for Pain 32144Qfcghdoo 2023 12:00amApril 2023 7:58amPrimary osteoarthritis of right knee Unilateral primary osteoarthritis, right kneeDO NOT RECONCILE UNTIL DOS 09/04/2023. MED TO BED UPON DISCHARGE.Oxycodone 5 mg yhffslCgkwzhxbkeic0GLVDT0X as needed for Sqgr7895Qyuwetin pril 2023 7:58amPrimary osteoarthritis of right knee Unilateral primary osteoarthritis, right kneeDO NOT RECONCILE UNTIL DOS 09/04/2023. MED TO BED UPON DISCHARGE.Ondansetron Hcl 4 mg fzkohlPqvxjqgiqrgb9SU POQ8H as needed for Oifrqk24Lvkmfgfa 2023 12:00amApril 2023 7:58amDO NOT RECONCILE UNTIL DOS 09/04/2023. MED TO BED UPON DISCHARGE.Pantoprazole (Protonix) 20 mg tablet,delayed release (DR/EC)Nbfzqjstvhjw53THURhzzsj10014 August 24, 2023 12:00amApril 2023 7:58amDO NOT RECONCILE UNTIL DOS 09/04/2023. MED TO BED UPON DISCHARGE.Prednisone 10 mg ynkmgqZscczunevaxm84ZEUR zefrp61544Utpfwadi 2023 12:00amMarch 2023 11:41amDO NOT RECONCILE UNTIL DOS 09/04/2023. MED TO BED UPON DISCHARGE.Sulfamethoxazole-Trimethoprim 800-160 mg kcczypFauurfpfgciw0GZSJKCvkgi xnmji9959Lkyywzee 2023 12:00am September 06, 2023 11:41amDO NOT RECONCILE UNTIL 09/04/2023. MED TO BEDCelecoxib 100 mg noyukeiRagiwabieeqv812LTJYejw29073Xwv 2023 11:00pmSeptember 2023 11:04amarthritisTake with food.Methylprednisolone (Medrol (Art)) 4 mg tablets,dose pjzqRlyhsdrmyjre1PHGPev seiwdtku89Lcn 2023 11:00pmJune 2023 12:57pmValacyclovir 1 gram uoxfugCpdzsfsijhzv2751OTTCEkswq gxzpx934Qcali 2023 11:00pmApril 2023 8:49hrOcuxklwc-Jnmfgkpgs-Hf 3.5-10,000-1 mg/mL-unit/mL-% drops,phipgmcjnvHduokukfawab1ODWDYHGCQMauy times llzky9625Rbwxh 2023 11:00pmApril 2023 8:20amLosartan 100 mg tfrqgiPcafzpmetlrj922LA TEFnrog88295Abdmwypok 2023 11:00pmMarch 2024 12:04pmGabapentin 300 mg bktxneaEmzwrxmdpufw754OIKFTexnm zhelf81926Ksxwexucj 2023 8:45amSeptember 2023 10:10amSpondylosis of lumbosacral spine with radiculopathy Other spondylosis with radiculopathy, lumbosacral region painGabapentin 100 mg thhyodkDkoawlsmfztd411TVYMXtoqs tvmnz66240Artxxfodp 2023 10:09amDecember 2023 11:46amSpondylosis of lumbosacral spine with radiculopathy Other spondylosis with radiculopathy, lumbosacral region painGabapentin 100 mg dkqsqiuJoqvpzqxefwe306FEECIxcvy xlfql102287Oilhcpcp 2023 11:46amMarch 2024 10:27amSpondylosis of lumbosacral spine with radiculopathy Other spondylosis with radiculopathy, lumbosacral region painAcetaminophen 500 mg kpaiyxYqqhikawxsuj5899DOPXC7K826116Ciyah 2023 7:52amSeptember 2023 7:26amDO NOT RECONCILE UNTIL DOS 10/09/2023. MED TO BED UPON DISCHARGE.Ondansetron Hcl 4 mg icvamxSawxusswhnrz9MFMKN9V as needed for Dtjxdj63Vhwqb 2023 7:52amMay 2023 11:02amDO NOT RECONCILE UNTIL DOS 10/09/2023. MED TO BED UPON DISCHARGE.Oxycodone 5 mg lgncydNfffgekoolgh0NFKTU3Z as needed for Modh6221Grtrh 2023Ma2023 11:02amPrimary osteoarthritis of right knee Unilateral primary osteoarthritis, right kneeDO NOT RECONCILE UNTIL DOS 10/09/2023. MED TO BED UPON DISCHARGE.Pantoprazole (Protonix) 20 mg tablet,delayed release (DR/EC)Wjrmnmyfldkr17HTRYcrhfw48360Uyzlk 2023 7:53am November 22, 2023 11:02amDO NOT RECONCILE UNTIL DOS 10/09/2023. MED TO BED UPON DISCHARGE.Polyethylene Glycol 3350 (Miralax) 17 gram/dose ymmnflCfmsggnzmuuk76OL RTgtbxd705Nixbl 2023 7:53amMay 2023 11:02am1 packed mixed with 8 ounces of fluid. DO NOT RECONCILE UNTIL DOS 10/09/2023. MED TO BED UPON DISCHARGE.Tramadol 50 mg fynvmaMmpffiafdfsb71TWEDF1E as needed for Irwr21798Wfsgo 2023 7:54amMay 2023 11:03amPrimary osteoarthritis of right knee Unilateral primary osteoarthritis, right kneeDO NOT RECONCILE UNTIL DOS 10/09/2023. MED TO BED UPON DISCHARGE.Rivaroxaban 10 mg densmyTeiwslkfrbvu67YOJD ewkhh82487Tiziu 2023 7:54amMay 2023 11:02amDO NOT RECONCILE UNTIL DOS 10/09/2023. MED TO BED UPON DISCHARGE.Sennosides-Docusate Sodium (Senokot-S) 8.6- 50 mg imlcipOddidnzfefzs1BHFTZemgow88947Pnxrs 2023 7:55amMay 2023 11:02amDO NOT RECONCILE UNTIL DOS 10/09/2023. MED TO BED UPON DISCHARGE. Cefadroxil 500 mg libjgxhOjrkmnfhkrtv924MVUID17U4407Ltljx 2023 11:00pmApril 2023 9:15amDO NOT RECONCILE UNTIL DOS 10/09/2023. MED TO BED UPON DISCHARGE. Prednisone 10 mg pxuvqeFvvoykoyfrbe30NVXLxgfwo48317Cljwp 2023 11:00pmMay 2023 11:02amDO NOT RECONCILE UNTIL DOS 10/09/2023. MED TO BED UPON DISCHARGE.Tizanidine (Zanaflex) 4 mg hdmlguNnnprftvughp5AVSBSegpt daily as needed for muscle iwbhtwkici233Bmcjd 2023 11:00pmSeptember 2023 11:09amTramadol 50 mg tjlhtxAdmaspcqfrmb64FCHFUqszx 8 hours as needed for pain30 70April 2023 11:00pmMay 2023 11:03amStatus post right unicompartmental knee replacement Presence of right artificial knee jointMethylprednisolone (Medrol (Art)) 4 mg tablets,dose lwfaRccjmhipvcvi8FHzxu package ukjnbqejix304Uazwz 2023 11:00pmMay 2023 11:02amPO PER PKG DIRGabapentin 300 mg capsuleDiscontinued 300MGPOTwice cujwq64917Jekewd 2023 11:00pmSeptember 2023 8:45am Spondylosis of lumbosacral spine with radiculopathy Other spondylosis with radiculopathy, lumbosacral region painMethylprednisolone (Medrol (Art)) 4 mg tablets,dose txcpBexigpxeetdi3JFuny package trpexnoufr355Mnbchbyb 2024 12:00amMarch 2024 10:28amPO PER PKG DIR for 6 daysTizanidine 4 mg upfvkxBdgalc3BLHQVldzp daily as needed for muscle krpwtttxwi58024Vdtm 2024 11:00pmComplies with drug therapy Immunizations Immunization Event Date Not Given Reason Dose Number 3Rd Mate Lot Number Reason(s) Given Vaccine Information Statement (VIS) Detail Administration Location COVID-19 mRNA, Comirnaty ([employer]) September 29 COVID-19 mRNA, Comirnaty ([employer])September 08OVID-19 mRNA, Comirnaty ([employer])April 10Tap, unspecifiedDecember 2015influenza, unspecified formulationOctober 2019influenza, unspecified formulation May 07, 2022 Medical Equipment Device Date Implanted Device Details Uncoated unicondylar knee fe mur prosthesis October 09, 2023 KHUSHBU: ()[id number] Issuing Agency: [employer] Device Id: [id number] Expiration Date: 2033-01-02 Lot Number: [id number] unicondylar knee tibia prosthesis, metallicApril 2023UDI: ()[id number] Issuing Agency: [facility] Device Id: [id number] Expiration Date: 2032-02-16 Lot Number: [id number] knee insertApril 2023UDI: ()[id number] Issuing Agency: [facility] Device Id: [id number] Expiration Date: 2028-05-16 Lot Number: [id number] cement, non-medicatedApril 2023UDI: ()[id number] Issuing Agency: [facility] Device Id: [id number] Expiration Date: 2026-01-23 Lot Number: [id number] Procedures Procedure Date Performed Status MR shoulder RT wo con March 19, 2025 8:12a m completed Relevant Diagnostic Tests and/or Laboratory Data Laboratory Results Test Collection Date/Time Result Date/Time Result Interpretation Reference Range Result Comment Performing Site Corrected White Blood Count April 16, 2025 8:30am April 16, 2025 8:50am 5.4 10*3/uL 3.8-11.6[facility] [id number] [address] [facility] 88783Pvklgjhwwqc WBC CountOctober 2024 8:30amOctober 2024 8:50am5.4 10*3/uL3.8-11.6FHenry [facility] [id number] [address] [facility] 40779Nqn Blood CountOct2024 8:30amOctober 2024 8:50am4.87 10*6/uL3.60-5.00[facility] [id number] [address] [facility] 01594IgkscbzfggWzitgjg 2024 8:30amOctober 2024 8:50am 14.2 g/dL11.8-15.4FHenry [facility] [id number] [address] [place] [address] 00152MmkkagkvkbNnnajdq 2024 8:30amOctober 2024 8:50am 41.9 %34.0-46.4FHenry [facility] [id number] [address] [facility] 12206Ruzl Corpuscular VolumeOctober 2024 8:30amOctober 2024 8:50am86.0 sX85-221FhskdtkgbLima Memorial Hospital [facility] [id number] [address] [facility] 16560Qulp Corpuscular HemoglobinOctober 2024 8:30amOctober 2024 8:50am29.2 pg24.7-34.3FHenry [facility] [id number] [address] [facility] 94950Ubwi Corpuscular Hemoglobin ConcentOctober 2024 8:30am April 16, 2025 8:50am33.9 g/dL32.0-35.0[facility] [id number] [address] [place] [address] 37278Sjl Cell Distribution WidthOctober 2024 8:30amOctober 2024 8:50am13.1 %11.9-15.3F[facility] [id number] [address] [facility] 68327Ovppygqg CountOctober 2024 8:30amOctober 2024 8:26sg034 10*3/uN264-056SdlwoiimeLima Memorial Hospital [facility] [id number] [address] [facility] 98363Hgmw Platelet VolumeOctober 2024 8:30amOctober 2024 8:50am8.1 fL6.3-10.7FHenry [facility] [id number] [address] [facility] 96432Fptajlrmvgb (%) (Auto)April 16, 2025 8:30amOctober 2024 8:50am50.2 %.[facility] [id number] [address] [facility] 40716Dppyxzhjjsv (%) (Auto)April 16, 2025 8:30amOctober 2024 8:50am32.5 %.[facility] [id number] [address] [facility] 44388Urivtrmjy (%) (Auto)April 16, 2025 8:30amOctober 2024 8:50am13.3 %.[facility] [id number] [address] [facility] 20184Nuriigjzhkr (%) (Auto)April 16, 2025 8:30amOctober 2024 8:50am3.2 %.[facility] [id number] [address] [facility] 03015Sogviysaa (%) (Auto)April 16, 2025 8:30amOctober 2024 8:50am0.8 %.[facility] [id number] [address] [facility] 29633Todrcgsvz RBC Relative Count (auto)April 16, 2025 8:30am April 16, 2025 8:50am0.1 /100{WBC}0-0.5F[facility] [id number] [address] [facility] 220[address]Fgjjwdokkpt # (Auto)April 16, 2025 8:30amOctober 2024 8:50am2.7 10*3/uL1.8-7.7FHenry [facility] [id number] [address] [facility] 043[address]Sniswinqnry # (Auto)April 16, 2025 8:30amOctober 2024 8:50am1.7 10*3/uL1.00-4.8[facility] [id number] [address] [facility] 75418Wywaukioz # (Auto)April 16, 2025 8:30amOctober 2024 8:50am0.7 10*3/uL0.0-0.8[facility] [id number] [address] [facility] 57293Kwqpyrelchd # (Auto)April 16, 2025 8:30amOctober 2024 8:50am0.2 10*3/uL0.0-0.45[facility] [id number] [address] [facility] 64802Wfzqgafff # (Auto)April 16, 2025 8:30amOctober 2024 8:50am0.0 10*3/uL0.0-0.2F[facility] [id number] [address] [facility] 26234Uxvggjc LevelOctober 2024 8:30amOctober 2024 9:31am 87 mg/uN05-044XjeegtsnuLima Memorial Hospital Ctr [id number] [address] [facility] 68319Cpycv Urea NitrogenOctober 2024 8:30amOctober 2024 9:31am14 mg/dL7-25[facility] [id number] [address] [facility] 70860BuhadqkmknAdmdedd 2024 8:30amOctober 2024 9:31am 0.53 mg/dLBelow low normal0.60-1.20[facility] [id number] [address] [facility] 75449Uldrjghtx GFR (CKD-EPI)April 16, 2025 8:30amOctober 2024 9:31am> 60.0 mL/MinLima Memorial Hospital Ctr [id number] [address] [facility] 40208Aggzbq LevelOctober 2024 8:30amOctober 2024 9:31am 139 mmol/S117-043BbzjuzqwxL[facility] [id number] [address] [place] 4871370Potassium LevelOctober 2024 8:30amOctober 2024 9:31am4.4 mmol/L3.5-5.1FHenry [facility] [id number] [address] [facility] 06052Oxjgpglm LevelOctober 2024 8:30amOctober 2024 9:14ou278 mmol/LAbove high imxmce19-827TgsikhxozLima Memorial Hospital [facility]tr [id number] [address] [facility] 55950Ijduzb Dioxide LevelOctober 2024 8:30amOctober 2024 9:31am26.8 mmol/L21.0-31.0[facility] [id number] [address] [facility] [address]24[address]Jhlma GapOctober 2024 8:30amOctober 2024 9:31am8.6 mEq/L6.0-15.0[facility] [id number] [address] [facility] 76565Xslmwbm LevelOctober 2024 8:30amOctober 2024 9:31am 9.0 mg/dL8.6-10.3FHenry [facility] [id number] [address] [facility] 57302Ppodh ProteinOctober 2024 8:30amOctober 2024 9:31am 6.0 g/dLBelow low normal6.4-8.9[facility] [id number] [address] [facility] 03377LdbmpwwEcrsbnu 2024 8:30amOctober 2024 9:31am4.0 g/dL3.5-5.7FHenry [facility] [id number] [address] [facility] 63182XguqxgcnSccxfob 2024 8:30amOctober 2024 9:31am2.0 g/dLLima [facility] [id number] [address] [facility] [address]Rfxyrze/Globulin RatioOctober 2024 8:30amOctober 2024 9:31am2.0[facility] [id number] [address] [facility] [address]Jipro BilirubinOctober 2024 8:30amOctober 2024 9:31am0.5 mg/dL0.3-1.0[facility] [id number] [address] [facility] [address]Iqxfwmmej Amino Transf (AST/SGOT)April 16, 2025 8:30am April 16, 2025 9:31am21 U/Z42-51GmhukaxzgL[facility] [id number] [address] [facility] [address]Snngyzp Aminotransferase (ALT/SGPT)April 16, 2025 8:30am April 16, 2025 9:31am23 U/L7-52[facility] [id number] [address] [facility] [address]Nqmmsluw PhosphataseOctober 2024 8:30amOctober 2024 9:31am90 U/I12-346UhluyphnfLima [facility] [id number] [address] [place], [place] [id number] Creatinine Clearance (ChemOctober 2024 8:30am April 16, 2025 9:31amN/[facility] [id number] [address] [place] [id number] Diagnostic Imaging Reports Author Juancarlos Elmore [facility] HospitalAuthoredSeptember 2024 11:38amReport Dictated Date/TimeDictated ByStatusRadiology ReportSeptember 2024 11:38am Juancarlos Elmore II [facility] [place] [address] [place], [place] [id number] MRI Report Signed Patient: Maddison Tovar MR#: [id number] : 1960 Acct:[id number] Age/Sex: 64 / F ADM Date: 5 Loc: ICMR Room: Type: [facility] CLI Attending Dr: Clay Traore DO Copies to: Clay Traore DO~ Ordering Provider: Clay Traore DO Date of Service: 03/19/25 MR/MR shoulder RT wo con: M24.811 - Other specific joint derangements of right shou... MR RIGHT SHOULDER CLINICAL INFORMATION: Right shoulder pain with decreased range of motion. COMPARISON: 01/27/2025. PROCEDURE: Axial, oblique coronal, and oblique sagittal long TR images of the shoulder were obtained. FINDINGS: ROTATOR CUFF AND ASSOCIATED STRUCTURES Biceps Tendon: There is slight increased signal intensity within the proximal long head of the biceps tendon with fluid along the tendon sheath suggesting tenosynovitis. Rotator cuff: There is a partial-thickness intrasubstance tear of the infraspinatus. There is a partial-thickness articular surface tear at the supraspinatus and infraspinatus insertion. There is a partial-thickness tear of the bursal surface of the subscapularis with medial retraction of the tendon fibers partially unroofing the biceps groove. Musculature: There is no muscular tear, contusion, or atrophy. Bursa: No bursal effusion or thickening is seen. OSSEOUS STRUCTURES Acromioclavicular joint: There are moderate degenerative changes of the acromioclavicular joint. A type 3 acromion configuration is noted. There is lateral acromial downsloping with downward displacement of the supraspinatus ten don suggesting rotator cuff impingement. Bones: No Hill-Sachs, reverse Hill-Sachs, or bony Bankart lesions are seen. There are no fractures. Subcortical cystic changes noted along the rotator cuff insertion. GLENOHUMERAL JOINT Joint: There is a small joint effusion. Cartilage: No focal hyaline cartilage defects are noted. Labrum: The superior labrum is irregular in appearance with increased signal intensity on fluid since the sequences suspicious for a previous SLAP tear. Other support structures: No capsular or ligamentous abnormality is seen. MR/MR shoulder RT wo con IMPRESSION: 1. There is a partial-thickness intrasubstance tear of the infraspinatus. 2. There is a partial-thickness articular surface tear at the supraspinatus and infraspinatus insertion. 3. There is a partial-thickness tear of the bursal surface of the subscapularis with medial retraction of the tendon fibers partially unroofing the biceps groove. 4. There are moderate degenerative changes of the acromioclavicular joint. A type 3 acromion configuration is noted. There is lateral acromial downsloping with downward displacement of the supraspinatus tendon suggesting rotator cuff impingement. 5. There is slight increased signal intensity within the proximal long head of the biceps tendon with fluid along the tendon sheath suggesting tenosynovitis. 6. The superior labrum is irregular in appearance with increased signal intensity on fluid since the sequences suspicious for a previous SLAP tear. Impression dictated by: Juancarlos Elmore M.D. 03/19/2025 11:50 AM Dictation Location: [place] [address] Transcribed By: [facility] 03/19/25 1150 Dictated By: Juancarlos Elmore II, MD 03/19/25 1138 Signed By: <Electronically signed by Juancarlos Elmore II, MD in OV> 03/19/25 1150 Vital Signs Vital Reading Result Reference Range Collection Date/Time Height 64 [in_i] February 17, 2025 12:15lvTnwjku39.90 kgAugust 2024 12:26pmBMI (Body Mass Index)33.6 kg/m2Yinfsb 2024 12:65oyAvfoqo82 [in_i]April 22, 2025 9:93hnAwezyq53.71 kgOctober 2024 9:43amBMI (Body Mass Index)34.3 kg/m2 April 22, 2025 9:32osAeyvcb46.75 [in_i]April 30, 2025 6:37gcSqacre88.00 kgApril 30, 2025 6:01amBody Osuivcajopo69.0 [degF]97.6-99.0April 30, 2025 8:50amHeart Rate75 /wfe97-008FcrmfnbiApril 30, 2025 10:50amRespiratory rate16 /euh62-60YlrwjgliApril 30, 2025 10:50amOxygen saturation by Pulse clkftvza99 %95-100 April 30, 2025 10:50amBP Vyvtdhkg741 mm[Hg]100-140April 30, 2025 10:50am BP Acaftvqfz32 mm[Hg]60-100April 30, 2025 10:50amInhaled oxygen flow rate1 L/minApril 30, 2025 10:20am Advance Directives Advance Directive Response Recorded Date/ Time Advance Directives No January 04 2:50pm Insurance Providers Guarantor Maddison Tovar Address [address] [place] [id number] Info.Home Phone: Coverage Status Update:2024 Payer Group Member ID Coverage Type Subscriber Relationship to Subscriber Effective Date Expiration Date Navneet WHITE Id: [id number] Buckner Id: [id number] [address] [address] Home Phone: Encounters Encounter Location(s) Arrival/Admit Date Discharge/Departure Date Discharge/Departure Disposition Provider(s) Departed Physician/ Provider Office Visit -On License Of [facility] February 17, 2025 1:15pm February 17, 2025 2:14pm Discharged to home care or self care (routine discharge) Clay Traore DO Departed Clinical -MRI [address] Closed March 19, 2025 9:04am March 19, 2025 9:05am Discharged to home care or self care (routine discharge) Clay Traore DO Departed Physician/ Provider Office Visit -On License Of [facility] March 25, 2025 9:29am March 25, 2025 9:51am Discharged to home care or self care (routine discharge) Clay Traore DO Departed Clinical -Pre-Surgica l Testing April 16, 2025 8:53am April 16, 2025 8:54am Discharged to home care or self care (routine discharge) Clay Traore DO Departed Physician/ Provider Office Visit -On License Of [facility] April 22, 2025 10:30am April 22, 2025 11:04am Discharged to home care or self care (routine discharge) Clay Traore DO Non-patient / Non-visit -On License Of [facility] April 30, 2025 5:43am Clay Traore DO Recent Diagnosis Onset Date Admit Date Internal derangement of right shoulder Unknown February 17, 2025 1:15pm Rotator cuff syndrome of right shoulder Unknown February 17, 2025 1:15pm Biceps tendonitis on right Unknown Septe mber 2024 9:29am Internal derangement of right shoulder Unknown March 25, 2025 9:29am Nontraumatic tear of right rotator cuff Unknown March 25, 2025 9:29am Rotator cuff syndrome of right shoulder Unknown March 25, 2025 9:29am Biceps tendonitis on right Unknown Octob er 2024 10:30am Internal derangement of right shoulder Unknown April 22, 2025 10:30am Nontraumatic tear of right rotator cuff Unknown April 22, 2025 10:30am Rotator cuff syndrome of right shoulder Unknown April 22, 2025 10:30am Assessments Diagnosis Onset Date Resolution Status Admit Date Internal derangement of right shoulder acuteAugust 2024 1:15pmRotator cuff syndrome of right shoulderacuteAugust 2024 1:15pmBiceps tendonitis on rightacuteSeptember 2024 9:29am Internal derangement of right shoulderacuteSeptember 2024 9:29am Nontraumatic tear of right rotator cuffacuteSeptember 2024 9:29amRotator cuff syndrome of right shoulderacuteSeptember 30th, 2025 9:29amBiceps tendonitis on rightacuteOct2024 10:30amInternal derangement of right shoulder acuteOct2024 10:30amNontraumatic tear of right rotator cuffacute April 22, 2025 10:30amRotator cuff syndrome of right shoulderacuteOct2024 10:30am Plan of Treatment Author [facility] 12:51pmDiscussed with patient on the patient's symptoms, exam, and imaging. Likely etiologies of the patient's symptoms were discussed. Based on exam and history, I have concerns for a rotator cuff tear. We will order an MRI to further assess for this. Based on MRI results, may consider cortisone injection at next visit if surgical treatment is not indicated. Patient will follow-up after MRI for reevaluation. Author Laure Gaitan [place] 2024 9:57amWe discussed exam findings, symptoms, and imaging and likely etiologies of the patient's pain. We discussed conservative management vs surgical intervention. The patient wishes to proceed with surgery in the form of a right shoulder arthroscopy with rotator cuff repair and biceps tenodesis. We discussed the risks, benefits, and alternatives to surgery in general, including the potential outcomes with foregoing treatment altogether. The risks include, but are not limited to, the risk of anesthesia up to and including , infection, bleeding, tendon damage, nerve damage, vascular damage, stiffness, weakness, loss of range of motion, arthrofibrosis, failure to alleviate symptoms, worsening of symptoms, continued pain, continued mechanical symptoms, arthritic pain, post traumatic arthritis, wound healing problems, formation of cutaneous scars secondary to surgical incisions, deep venous thrombosis, pulmonary embolism, reflex sympathetic dystrophy, unforeseen complications and the need for further surgery. Procedure: right shoulder arthroscopy with rotator cuff repair and biceps tenodesis Antibiotics: Ancef Same Day Surgery: Yes Bed: Regular OR bed, lateral pegboard, fishing pole Instruments needed: Arthrex rotator cuff anchors, biceps tenodesis Author Clay Traore [facility] 2024 9:31amWe discussed exam findings, symptoms, and imaging and likely etiologies of the patient's pain. We discussed conservative management vs surgical intervention. The patient wishes to proceed with surgery in the form of Right Shoulder Arthroscopic repair, biceps tenodesis. We discussed the risks, benefits, and alternatives to surgery in general, including the potential outcomes with foregoing treatment altogether. The risks include, but are not limited to, the risk of anesthesia up to and including , infection, bleeding, tendon damage, nerve damage, vascular damage, stiffness, weakness, loss of range of motion, arthrofibrosis, failure to alleviate symptoms, worsening of symptoms, continued pain, continued mechanical symptoms, arthritic pain, post traumatic arthritis, wound healing problems, formation of cutaneous scars secondary to surgical incisions, deep venous thrombosis, pulmonary embolism, reflex sympathetic dystrophy, unforeseen complications and the need for further surgery. Procedure: Right Shoulder Arthroscopic rotator cuff repair, biceps tenodesis Antibiotics: Ancef Same Day Surgery: Yes Bed: Regular OR bed, lateral pegboard, fishing pole Instruments needed: Arthrex rotator cuff anchors, biceps tenodesis Note scribed by MALISSA Noguera, reviewed and amended by myself Clay Traore D.O. Future Tests Future scheduled test information is unavailable Pending Tests Pending diagnostic test information is unavailable Future Visits Future appointment information is unavailable Future Procedures Procedure Name Ordered Date Scheduled Date Post Anesthesia Tracer order April 30, 2025 8:58am April 30, 2025 9:00am Discharge Order March 31, 2025 2:55pm [facility] 2024 9:35am Future Medications Future medication information is unavailable Patient Instructions Instruction Admit Date Know your Meds April 30, 2025 5 :43am Hospital Discharge Instructions Additional Instructions POSTOPERATIVE INSTRUCTIONS FOR ROTATOR CUFF REPAIR Clay Traore DO Orthopedic Surgeon On License Of [facility] GENERAL INSTRUCTIONS: ?? Use ice packs to the shoulder as much as you can tolerate (30 minutes on/30 minutes off) over the first 48-72 hours post-operatively. DO NOT apply ice directly to the skin. Always place a towel between the ice pack and skin. ?? Low grade temperatures are common after surgery. Please notify the office if your temperature exceeds 101.5 degrees Fahrenheit. ?? DO NOT make critical decisions or sign legal papers for the first 24 hours after surgery or while taking pain medication. MEDICATIONS AND DIET: ?? You may resume all pre-operative medications unless otherwise specified. ?? Only take pain medication as prescribed, as needed. ?? We encourage ambulation to help prevent blood clots from developing in your legs ?? You should take pain medication with food. It is not uncommon to have nausea or an upset stomach after surgery. ?? Medication refills require a 48 hour notice; no exceptions will be made. ?? NO REFILLS will be authorized over the weekend. ?? Do not take extra Tylenol while taking prescription pain medication unless otherwise specified. ?? If you have a reaction to your medications, stop taking them and call the office immediately. If you develop a significant rash, or have trouble breathing, call 911 or go immediately to the nearest emergency room. ACTIVITY: ?? Your operative extremity is in shoulder sling. Please wear this as all times. You may remove this for bathing purposes. ??You may also come out of the sling 2-3 times per day to perform gentle pendulum exercises as well as gentle movement of your elbow. Do not actively move your shoulder otherwise. ?? Wear the sling while sleeping at night . ?? You are non-weightbearing on your operative arm. DRESSING/BANDAGES: ?? Your surgical bandage may show some drainage over the first 24-48 hours following surgery. ?? Keep steri-strips intact if they are present ?? If your bandage becomes saturated, please notify the office. ?? Your shoulder dressing is to be left on for the first 72 hours after surgery. On the third day after surgery, you may remove your dressing but keep the white steri-strips in place. ?? DO NOT soak the incision. You may shower once the bandage is off. Allow water to wash over the incisions. Do not scrub the area ?? DO NOT submerge the incision in a bath, hot tub, swimming pool, or any other body of water for the first 4 weeks following surgery. FOLLOW UP: ?? Your first post-operative appointment should already be scheduled for you. ?? If you do not already have a post-operative appointment, our office will contact you to schedule one. You should be seen in the office two weeks following your surgery unless otherwise specified. ?? If you notice any increasing swelling, wound redness, or drainage, please contact our office immediately. Clay Traore DO Orthopedic Surgeon On License Of [facility] Office: [address] [facility] [facility] [address] Office number: [phone]
--- OUTSIDE RECORDS SUMMARY | 2025-05-08 10:36 | XMS_ITS | Clinical Summary ---
Author Organization [facility] Address [address] [place], [place] [id number] Care Team Providers Care Pillar Worker Name Role Phone Unavailable Primary Care Provider Unavailabl e Allergies Active AllergyReactionsCriticalityNoted CcwrXkdryoucJzgcbzfobqwGruvljy26/24/2014 Medications MedicationSigDispense QuantityRefillsLast FilledStart DateEnd DateStatus MINOCYCLINE HCL (MINOCYCLINE ORAL) Take by mouth.Active traMADol 50 mg tablet Take 50 mg by mouth every 6 hours as needed.Active ETODOLAC ORAL Take by mouth.Active Active Problems ProblemNoted DateDiagnosed DateArthritis of knee01/17/2014 Social History Tobacco UseTypesPacks/DayYears UsedDateSmoking Tobacco: Never Assessed CommentsUnknownSex and Gender InformationValueDate RecordedSex Assigned at Not on fileLegal MlkZqevem92/15/2014 2:38 PM EDTGender IdentityNot on fileSexual OrientationNot on file Plan of Treatment Health MaintenanceDue DateLast DoneCommentsAnxiety Vucnzbwwe91/02/1980Depression Zsrgthsmh10/02/1980HIV Drogyaivj72/02/1980Hepatitis C Kybuhecrc76/02/1980 DTaP,Tdap,Td Vaccine (1 - Tdap)1980Cervical Cancer Hzxdjphxy43/02/1983 Mammogram Vgczdwhor04/02/2002CT Whzwbgnmofjn12/02/2007Cologuard (FIT-DNA) 09/25/20063052Apudjsqgdzi78/02/2007Colorectal Cancer Ydhhjriwc42/02/2007Diabetes Skocngtuw69/02/2007Fecal Occult Blood2006Lipid Gfisejtlm53/02/2007 Uwoytqusemvqr30/02/2007Pneumococcal Vaccine: 50+ (1 of 1 - PCV)09/26/2011 Shingrix Vaccine (1 of 2)09/26/2011Covid-19 Vaccine (2024- season) 2025Influenza Vaccine (#1)2025RSV Vaccine (1 - 1-dose 75+ series) 2036 Insurance MemberSubscriberPlan / Payer (Effective 2013-Present)Name:Maddison Tovar Relation to Subscriber:SpouseName:[place] TOVAR Date of :1958 (Home) Address: [address] [place] [id number] Payer ID:[id number] (NAIC) Type:PPO Address: [facility] [id number] [place] [id number]
--- OUTSIDE RECORDS SUMMARY | 2025-05-08 10:36 | XMS_ITS | Clinical Summary ---
Author Organization [facility] Address [address] [place] [address] Care Team Providers Care Steel Rigger Name Role Phone Parviz Hanley DO Primary Care Provider [phone] Active Problems ProblemNoted DateDiagnosed DateBilateral carpal tunnel dmfdjlmu31/02/2025 Social History Tobacco UseTypesPacks/DayYears UsedDateSmoking Tobacco: Never Assessed CommentsUnknownSex and Gender InformationValueDate RecordedSex Assigned at Not on fileLegal LxwXlwsvr69/02/2024 10:22 AM EDTGender IdentityNot on file Sexual OrientationNot on file Plan of Treatment Not on file Insurance Care Teams Team MemberRelationshipSpecialtyStart DateEnd Date Parviz Hanley DO PCP - GeneralInternal Fphlbxhv33/17/24
--- NOTE | 2025-05-08 11:01 | XR_ITS ---
The [address] [address] Patient Name: ALICIA RITTER MRN: [id number] date: 1960 Sex: F Assigned Patient Location: LAB Current Patient Location: LAB Accession/Order Number: [id number] Exam Date: 05/08/2025 11:10 Report Date: 05/08/2025 11:40 At the request of: NAE QUINTANA Procedure: XR hand NICA min 3v CLINICAL DATA: Rheumatoid arthritis and chondrocalcinosis . Hand and wrist pain. COMPARISON: Bilateral hands 03/04/2023 BILATERAL WRISTS- 3 views each AP, lateral and oblique views were obtained. There is osteopenia. No acute fractures or dislocation are identified. There is no significant joint space narrowing or prominent hypertrophy. No soft tissue swelling is noted. XR/XR hand NICA min 3v IMPRESSION: NO ACUTE BONY FINDINGS. BILATERAL HANDS - 3 views each AP, lateral and oblique views were obtained. There is osteopenia. No acute fractures or dislocation are noted. No disproportionate joint space narrowing or significant hypertrophy is seen. No soft tissue abnormalities are identified. IMPRESSION: NO ACUTE BONY FINDINGS. Impression dictated by: Lainey Scott M.D. 05/08/2025 11:40 AM Dictation Location: [place] [address] Electronically authenticated by: [id number] Y Date: 05/08/2025 11:40
--- NOTE | 2025-05-08 11:01 | XR_ITS ---
The [address] [address] Patient Name: ALICIA RITTER MRN: [id number] date: 1960 Sex: F Assigned Patient Location: LAB Current Patient Location: LAB Accession/Order Number: [id number] Exam Date: 05/08/2025 11:10 Report Date: 05/08/2025 11:40 At the request of: NAE QUINTANA Procedure: XR hand NICA min 3v CLINICAL DATA: Rheumatoid arthritis and chondrocalcinosis . Hand and wrist pain. COMPARISON: Bilateral hands 03/04/2023 BILATERAL WRISTS- 3 views each AP, lateral and oblique views were obtained. There is osteopenia. No acute fractures or dislocation are identified. There is no significant joint space narrowing or prominent hypertrophy. No soft tissue swelling is noted. XR/XR wrist NICA min 3V IMPRESSION: NO ACUTE BONY FINDINGS. BILATERAL HANDS - 3 views each AP, lateral and oblique views were obtained. There is osteopenia. No acute fractures or dislocation are noted. No disproportionate joint space narrowing or significant hypertrophy is seen. No soft tissue abnormalities are identified. IMPRESSION: NO ACUTE BONY FINDINGS. Impression dictated by: Lainey Scott M.D. 05/08/2025 11:40 AM Dictation Location: [place] [address] Electronically authenticated by: [id number] Y Date: 05/08/2025 11:40
[2025-05-08 11:18] LABS: Hematocrit 40.4 % (36.0-48.0); Hemoglobin 13.9 g/dL (12.0-16.0); Immature Granulocytes Abs Auto 0.02 10^3/uL (0.00-0.03); Immature Granulocytes Pct Auto 0.3 % (0.0-0.5); Lymphocytes Absolute Auto 2.1 10^3/uL (1.2-3.8); Mean Corpuscular HGB Conc 34.4 g/dL (29.9-35.2); Mean Corpuscular Hemoglobin 30.0 pg (26.7-34.0); Mean Corpuscular Volume 87.3 fL (81.0-99.0); Platelet Count 275 10^3/uL (150-450); Red Blood Count 4.63 10^6/uL (4.20-5.40); White Blood Count 6.2 10^3/uL (4.0-11.0)
[2025-05-08 12:28] LABS: Alanine Aminotransferase 38 U/L (14-59); Albumin Globulin Ratio 1.0; Albumin Level 3.3 g/dL (3.4-5.0); Alkaline Phosphatase 102 U/L (46-116); Anion Gap 7.4; Aspartate Amino Transferase 21 U/L (15-37); Blood Urea Nitrogen 12.0 mg/dL (7.0-18.0); Calcium 8.9 mg/dL (8.5-10.1); Carbon Dioxide 29.0 mmol/L (21.0-32.0); Chloride 106 mmol/L (98-107); Creatine Kinase 57 U/L (26-192); Estimated GFR (African America >60 (>=60 mL/min/1.73m^2); Estimated GFR (Non-African Ame >60 (>=60 mL/min/1.73m^2); Globulin 3.3 g/dL; Glucose 83 mg/dL (74-106); Potassium 4.4 mmol/L (3.5-5.1); Sodium 138 mmol/L (136-145); Thyroid Stimulating Hormone 2.048 uIU/mL (0.358-3.740); Total Protein 6.6 g/dL (6.4-8.2)
[2025-05-09 11:10] LABS: Anti-CCP Ab, IgG/IgA 39 units (0-19)
[2025-05-09 19:11] LABS: Antinuclear Antibodies, IFA Positive (.)
== END 2025-05-08 10:32 | disposition home or self-care (01) ==
LOC: LAB 10:32
PROVIDERS: PCP Internal Medicine; Visit Provider Internal Medicine Rheumatology
DX: M79.642 Pain in left hand (principal); M06.9 Rheumatoid arthritis, unspecified; M11.20 Other chondrocalcinosis, unspecified site; M79.641 Pain in right hand; M25.531 Pain in right wrist; M25.532 Pain in left wrist; M19.90 Unspecified osteoarthritis, unspecified site; Z79.899 Other long term (current) drug therapy
CPT/HCPCS: 36415; 73110; 73130; 80053; 82085; 82550; 84439; 84443; 85025; 85652; 86038; 86140; 86200; 86376; 86431; 86800